=== PATIENT | male | born 1945 | race Caucasian/White ===

== ENCOUNTER → 2017-02-19 | Outpatient (CLI) | payer MEDICARE, BC ==
--- NOTE | 2017-02-19 16:35 | US ---
EXAMINATION TYPE: US carotid duplex BILAT DATE OF EXAM: 02/19/2017 COMPARISON: NONE CLINICAL HISTORY: R42 Intermittent light headedness. Light headed EXAM MEASUREMENTS: RIGHT: Peak Systolic Velocity (PSV) cm/sec ----- Right CCA: 47.7 ----- Right ICA: 75.3 ----- Right ECA: 72.4 ICA/CCA ratio: 1.6 RIGHT: End Diastole cm/sec ----- Right CCA: 11.0 ----- Right ICA: 28.0 ----- Right ECA: 11.8 LEFT: Peak Systolic Velocity (PSV) cm/sec ----- Left CCA: 73.4 ----- Left ICA: 66.9 ----- Left ECA: 80.0 ICA/CCA ratio: 0.9 LEFT: End Diastole cm/sec ----- Left CCA: 20.5 ----- Left ICA: 26.7 ----- Left ECA: 12.8 VERTEBRALS (direction of flow): Right Vertebral: Antegrade Left Vertebral: Antegrade Rhythm: Arrhythmia There is mild peripheral plaque at right carotid bulb on grayscale images. There is more mild to mini mal eccentric plaque left carotid bulb. Velocity measurements and ratios remain within normal limits bilaterally. Technologist notes 1.6 cm hypoechoic oval probable solid nodule there is some increased through transmission on image 8. IMPRESSION: Mild atherosclerotic change bilaterally without hemodynamically significant stenosis seen in either internal carotid artery. Note is made of 1.6 cm right thyroid nodule, follow up thyroid ul trasound is advised to further evaluate and characterize. Note is made of arrhythmia during real-time scanning per technologist, if this is not known finding further investigation with 24-hour Holter mo nitoring would be advised.
== END | disposition home or self-care (01) ==
LOC: RADUSWWP 15:53
PROVIDERS: ATTEND Family Medicine
DX: I70.0 Atherosclerosis of aorta (principal)
CPT/HCPCS: 93880

== ENCOUNTER → 2017-04-02 | Outpatient (CLI) | payer MEDICARE, BC ==
[2017-04-02 13:13] LABS: HCT 39.7 % (39.0-53.0); HGB 12.9 gm/dL (13.0-17.5); MCH 29.6 pg (25.0-35.0); MCHC 32.3 g/dL (31.0-37.0); MCV 91.4 fL (80.0-100.0); Mean Platelet Volume 8.2; Platelet Count 203 k/uL (150-450); RBC 4.35 m/uL (4.30-5.90); RDW 13.5 % (11.5-15.5); WBC 4.3 k/uL (3.8-10.6)
[2017-04-02 13:33] LABS: Anion Gap 10 mmol/L; Blood Urea Nitrogen 18 mg/dL (9-20); Carbon Dioxide 29 mmol/L (22-30); Chloride 97 mmol/L (98-107); Potassium 5.1 mmol/L (3.5-5.1); Sodium 136 mmol/L (137-145)
== END | disposition home or self-care (01) ==
LOC: LABPAT 12:38
PROVIDERS: ATTEND Internal Medicine Cardiovascular Disease
DX: Z01.818 Encounter for other preprocedural examination (principal); R07.9 Chest pain, unspecified
CPT/HCPCS: 36415; 80051; 82565; 84520; 85027

== ENCOUNTER 2017-04-07 10:16 | Day surgery (SDC) | payer MEDICARE, BC ==
[2017-04-02 11:56] VITALS: BMI 30.9
[~2017-04-07 10:16] MED LIST: ALPRAZolam 0.25 MG TAB PO PRN; ALPRAZolam 0.5 MG TAB PO PRN; ASPIRIN 325 MG TAB PO STA; NITROGLYCERIN SL TABS 0.4 MG TAB SUBLINGUAL PRN; SODIUM CHLORIDE 0.9% 1,000 ML in EMPTY BAG 1 BAG IV ONE
[2017-04-07] MEDS ORDERED: fentaNYL (PF) 50 MCG/ML 2 ML AMP IVP ONE (12:19)
[2017-04-07] MEDS ORDERED: MIDAZOLAM 2 MG/2 ML VIAL IVP ONE (12:22)
[2017-04-07] MEDS ORDERED: LIDOCAINE 2% INJ 20 MG/ML SQ ONE (12:22)
[2017-04-07 12:53] LABS: O2 Sat Blood Gas 97.7 %
[2017-04-07] MEDS ORDERED: IOHEXOL 350 MG/ML 125ML BOTTLE INJ ONE (13:09)
[2017-04-07] MEDS ORDERED: RX INFO: IV CONTRAST WAS GIVEN 1 EACH MISC MISCELLANE PRN (13:13)
[2017-04-07] MEDS ORDERED: HYDROcodone/APAP 5-325MG 1 EACH TAB PO PRN (13:13)
[2017-04-07] MEDS ORDERED: SODIUM CHLORIDE 0.9% 1,000 ML IV SCH (13:15)
[2017-04-07 13:32] LABS: O2 Sat Blood Gas 74.9 %
[2017-04-07 13:33] LABS: O2 Sat Blood Gas 86.1 %
[2017-04-07 20:12] VITALS: BP 137/78; RESP 18; TEMP 98
[2017-04-07 20:13] VITALS: PULSE 77
--- NOTE | 2017-04-09 13:36 | P.PCN ---
Date of Procedure: 04/07/17 Preoperative Diagnosis: Chest pain, positive stress test and mitral regurgitation Postoperative Diagnosis: Diffuse coronary artery disease, mild mitral regurgitation Description of Procedure: HISTORY: This is a 72-year-old gentleman with history of multiple risk factors was been experiencing chest pain and shortness of breath. A stress test showed evidence of inferolateral ischemia. There is also moderate mitral regurgitation on the echocardiogram. Patient is advised to have cardiac catheterization for definitive diagnosis. CONSENT:I have discussed the risks, benefits and alternative therapies for the above-mentioned procedure and for both sedation/analgesia as well as necessary blood product administration, if indicated, as they pertain to this patient. The patient has indicated understanding and acceptance of the risks and procedures discussed. PROCEDURE: Patient was brought to the lab in a fasting state. Patient was given some IV sedation. RIGHT HEART CATHETERIZATION: The right groin is infiltrated with lidocaine and right femoral vein was entered using Seldinger technique. Right heart catheterization was performed using a Bardolph-Kash catheter. Patient tolerated the procedure well. LEFT HEART CATHETERIZATION: The right femoral artery was entered using Seldinger technique. A 6-Spanish catheter was left in place and selective coronary arteriography and left ventriculography was performed. Patient tolerated the procedure well. Femoral angiogram was performed and manual compression was applied for hemostasis. No immediate complications were noted and patient was transferred to [facility] in a stable condition Conscious Sedation: Versed 1 mg Fentanyl 50 g Duration 87 minutes HEMODYNAMICS: RIGHT HEART CATHETERIZATION: Right atrial pressure was 8-10, right ventricular pressure was 35/10, pulmonary wedge pressure was 5-10. Cardiac output by thermodilution method is 5-6 L and LEFT HEART CATHETERIZATION: The aortic pressure is 130/ 70. Left ankle end-diastolic pressure is 5-10. There was no gradient across the aortic valve SELECTIVE CORONARY ARTERIOGRAPHY: LEFT MAIN: Short and patent THE LEFT ANTERIOR DESCENDING CORONARY ARTERY:. This is a moderate caliber vessel giving rise to 2 good-sized diagonal branchs. There is no Sigmund lesion in the LAD THE LEFT CIRCUMFLEX AND IS CORONARY ARTERY:. This is a dominant vessel giving rise to good-sized OM branch and PLV and PDA branches. The OM branch has about 60-70% lesion. Beyond the lesion with a small in caliber. The PDA branch has about 70% lesion but also beyond the lesion is small in caliber THE RIGHT CORONARY ARTERY:, Nondominant vessel. LEFT VENTRICULOGRAPHY: This revealed mildly enlarged cardiac silhouette with preserved LV function. There is 1+ mitral regurgitation LEFT VENTRICULOGRAPHY:, Showed normal-sized cardiac silhouette with preserved LV function FINAL IMPRESSION: Significant lesion involving the OM branch and also PDA of the circumflex and there is a diffuse disease with calcification of the rest of the results. Preserved LV function. Mild mitral regurgitation PLAN: The films were reviewed with Dr. ELICEO Be. He recommended maximum medical therapy. If patient has any refractory angina, Ecotrin is intervention will be contemplated. Prognosis is guarded PROGNOSIS:. Guarded
== END 2017-04-07 21:30 | disposition home or self-care (01) ==
LOC: CATHCVL 10:16 → 3OBS 12:55 → CATHCVL 21:30
PROVIDERS: ATTEND Internal Medicine Cardiovascular Disease
DX: I25.118 Atherosclerotic heart disease of native coronary artery with other forms of angina pectoris (principal); I34.0 Nonrheumatic mitral (valve) insufficiency; R94.39 Abnormal result of other cardiovascular function study; I10 Essential (primary) hypertension; I73.9 Peripheral vascular disease, unspecified; N40.1 Benign prostatic hyperplasia with lower urinary tract symptoms; Z79.899 Other long term (current) drug therapy; Z87.891 Personal history of nicotine dependence
CPT/HCPCS: 93460; 85018; 82810; C1894 ×2; C1769; J2001; J2250; J3010; Q9967

== ENCOUNTER → 2017-06-03 | Outpatient (CLI) | payer MEDICARE, BC ==
--- NOTE | 2017-06-03 11:33 | US ---
EXAMINATION TYPE: US thyroid st tissue head/neck DATE OF EXAM: 06/03/2017 COMPARISON: NONE CLINICAL HISTORY: E04.1 Thyroid Nodule. Fatigue GLAND SIZE: Right Lobe: 4.4 x 1.8 x 2.0 cm Overall Parenchyma: homogenous Left Lobe: 4.3 x 1.4 x 1.4 cm Overall Parenchyma: homogeneous Isthmus Thickness: 0.4 cm NODULES RIGHT: # of nodules measured on right: 3 1. 1.8 X 1.1 x 1.6 cm hypoechoic mixed nodule at the upper pole with well-defined margins; . This nodule is wider than tall and shows intranodular vascularity. Prior size: No previous 2. 0.8 X 0.7 x 0.7 cm echogenic calcified solid nodule at the lower pole with well-defined margins; peripheral calcification. This nodule is wider than tall and shows no intranodular vascularity. Prior size: No previous 3. 0.3 X 0.4 x 0.7 cm hypoechoic cystic nodule at the upper pole with well-defined margins; . This nodule is wider than tall and shows no intranodular vascularity. Prior size: No previous LEFT: # of nodules measured on left: 1 1. 0.7 X 0.6 x 0.8 cm hypoechoic solid nodule at the upper pole with poorly defined margins; . Thi s nodule is wider than tall and shows intranodular vascularity. Prior size: No previous ISTHMUS: # of nodules measured in the isthmus: 0 Bilateral neck scanned, no evidence of lymphadenopathy. Bilateral thyroid nodules. IMPRESSION: 1. Multiple nonspecific thyroid nodules. Recommend biopsy of nodule labeled #1 right upper pole.
== END | disposition home or self-care (01) ==
LOC: RADUSWWP 10:45
PROVIDERS: ATTEND Family Medicine
DX: E04.1 Nontoxic single thyroid nodule (principal)
CPT/HCPCS: 76536

== ENCOUNTER 2017-08-19 09:08 | Emergency (ER) | payer MEDICARE, BC ==
[2017-08-19 09:14] VITALS: TEMP 98.2
[2017-08-19] MEDS ORDERED: IBUPROFEN 600 MG TAB PO STA (09:25)
--- NOTE | 2017-08-19 09:29 | ED ---
Lower Extremity Injury HPI - General Chief Complaint: Extremity Injury, Lower Stated Complaint: Right Knee Pain Time Seen by Provider: 08/19/17 09:16 Source: patient, RN notes reviewed Mode of arrival: wheelchair Limitations: no limitations - History of Present Illness Initial Comments: 72-year-old male past medical history of right knee total arthroplasty and previous hardware infection in 2008 who presents today for chief complaint of right knee pain 5 hours. Patient states that around 4 AM he was getting ready for the day putting on his sock when he crossed over his right ankle to his left knee he felt a pop in the right knee denies any posterior dislocation. Pt was able to bear weight on the right leg, however this did induce pain. Patient thought the pain may go away however when it continued and he noticed swelling to the lateral side of his right knee and pain to palpation of the lateral aspect of the right knee he presented emergency department. Pt did not ice or take medication to alleviate swelling or pain prior to arrival. Patient denies numbness, tingling, paresthesias, loss of sensation or coolness to the extremity, erythema of the overlying joint. Patient denies any recent fever, chills, shortness of breath, chest pain, back pain, abdominal pain, nausea or vomiting, numbness or tingling, dysuria or hematuria, constipation or diarrhea, headaches or visual changes, or any other complaints. - Related Data Home Medications Medication Instructions Recorded Confirmed Finasteride [Proscar] 5 mg PO DAILY 04/02/17 08/19/17 Tamsulosin [Flomax] 0.4 mg PO DAILY 04/02/17 08/19/17 Lisinopril 40 mg PO DAILY 08/19/17 08/19/17 Previous Rx's Medication Instructions Recorded Metoprolol Tartrate 25 mg PO BID #60 tab 04/07/17 Allergies Allergy/AdvReac Type Severity Reaction Status Date / Time vancomycin Allergy Rash/Hives Verified 08/19/17 09:54 Review of Systems ROS Statement: Those systems with pertinent positive or pertinent negative responses have been documented in the HPI. ROS Other: All systems not noted in ROS Statement are negative. Constitutional: Denies: fever, chills Eyes: Denies: eye pain ENT: Denies: ear pain Respiratory: Denies: cough, dyspnea Cardiovascular: Denies: chest pain, palpitations, edema Endocrine: Denies: fatigue Gastrointestinal: Denies: abdominal pain, nausea, vomiting, diarrhea, constipation, hematemesis Genitourinary: Denies: urgency, dysuria, frequency, hematuria Musculoskeletal: Reports: joint swelling, arthralgia. 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, IBS, "prediabetic -insulin resistant", History of Any Multi-Drug Resistant Organisms: None Reported Past Surgical History: Back Surgery, Cholecystectomy, Heart Catheterization, Joint Replacement, Tonsillectomy Additional Past Surgical History / Comment(s): laminectomy x 2, rt knee replacement, corey cataracts/lens replacement Past Anesthesia/Blood Transfusion Reactions: No Reported Reaction Past Psychological History: Bipolar Smoking Status: Former smoker Past Alcohol Use History: None Reported Past Drug Use History: None Reported - Past Family History Father Family Medical History: Cancer General Exam - General Exam Comments Initial Comments: General: The patient is awake and alert, in no distress, and does not appear acutely ill. Eye: Pupils are equal, round and reactive to light, extra-ocular movements are intact. No nystagmus. There is normal conjunctiva bilaterally. No signs of icterus. Ears, nose, mouth and throat: There are moist mucous membranes and no oral lesions. Neck: The neck is supple, there is no tenderness or JVD. Cardiovascular: There is a regular rate and rhythm. No murmur, rub or gallop is appreciated. Respiratory: Lungs are clear to auscultation, respirations are non-labored, breath sounds are equal. No wheezes, stridor, rales, or rhonchi. Musculoskeletal: Upon inspection of the right knee there is swelling to the lateral and medial aspect of the knee joint, tenderness to palpation of the lateral aspect and anterior knee. Increased pain and some laxity with varus stress and minimal discomfort with valgus stress. Full ROM of hip and knee joint b/l. Strength of right knee 5/5. Normal inspection, no tenderness and full ROM of the left knee. Strength 5/5. Sensation intact of LE b/l. DP pulses equal bilaterally 2+. LE equally warm to touch b/l. Neurological: A&O x 3. CN II-XII intact, There are no obvious motor or sensory deficits. Coordination appears grossly intact. Speech is normal. Skin: Skin is warm and dry and no rashes or lesions are noted. Psychiatric: Cooperative, appropriate mood & affect, normal judgment. Limitations: no limitations Course Vital Signs 08/19/17 08/19/17 09:12 11:06 Temperature 98.2 F Pulse Rate 64 59 L Respiratory 20 18 Rate Blood Pressure 147/79 142/71 O2 Sat by Pulse 98 95 Oximetry Medical Decision Making - Medical Decision Making 72-year-old male past medical history of right knee total arthroplasty and previous hardware infection in 2008 who presents today for chief complaint of right knee pain 5 hours. Patient states that around 4 AM he was getting ready for the day putting on his sock when he crossed over his right ankle to his left knee he felt a pop in the right knee denies any posterior dislocation. He is not able to bear full weight on the right leg secondary to pain. Patient thought the pain may go away however when it continued and he noticed swelling to the right lateral side of his knee and pain to palpation of the lateral aspect of the right knee he presented emergency department. Patient denies numbness, tingling, paresthesias, loss of sensation or coolness to the extremity , erythema of the overlying joint. Physical examination- inspection of the right knee there is swelling to the lateral and medial aspect of the knee joint , tenderness to palpation of the lateral aspect and anterior knee. Increased pain and some laxity with varus stress and minimal discomfort with valgus stress. Strength of right knee 5/5. +2 DP pulses b/l. Pt given ibuprofen for pain mgmt. XR revealed-no acute dislocation, or fracture however there is a mild knee effusion. Results were discussed with the patient as well as Dr. Allison. At this time we feel it could be a possible ligamentous injury, plan is for orthopedic f/u for further evaluation and treatment, OTC ibuprofen or naproxen for pain mgmt, use of knee brace in extension and ice/elevation for swelling. Pt received copy of XR and agreed with plan. Was instructed to return to emergency department for any new or worsening signs or symptoms. DC in stable condition, VS WNL. Disposition Clinical Impression: Pain of right knee after injury Disposition: HOME SELF-CARE Condition: Good Instructions: Knee Sprain (ED), Knee Pain (ED) Additional Instructions: Please use over the counter ibuprofen or naproxen as discussed. Please follow- up with orthopedic associates in the next 2 days. Please return to emergency room if the symptoms increase or worsen or for any other concerns. Is patient prescribed a controlled substance at d/c from ED?: No Referrals: Brisa Brush MD [Primary Care Provider] - 1-2 days Yared Farr DO [Doctor of Osteopathic Medicine] - 1-2 days Time of Disposition: 10:50
--- NOTE | 2017-08-19 10:20 | XR ---
EXAMINATION TYPE: XR knee complete RT DATE OF EXAM: 08/19/2017 CLINICAL HISTORY: Right knee pain. Unable to bear weight. TECHNIQUE: Three views of the right knee are obtained. COMPARISON: None. FINDINGS: There is no acute fracture/dislocation evident in right knee. Metallic hardware from total right knee arthroplasty is present. No suspicious surrounding lucency is seen to suggest loosening o r infection. [place] patella is small in size with marked narrowing of the patellofemoral joint space. There is suprapatellar joint effusion on lateral view. Punctate densities at this level as well as a nterior and posterior to the tibial femoral articulation is present. Subtle lucency anterior lateral tibial plateau is present. Subtle lucency posterior distal femur as seen on lateral view. Both measur e under 2 mm in thickness. IMPRESSION: As above. Presence of joint effusion with punctate densities and lucent areas raises conc gabriel for particle disease given patient history. There may be wearing out of the patellofemoral compon ent of prosthesis given marked small size of the [place] patella with marked joint space loss. Correla tion with old outside x-rays would be beneficial to assess interval change.
[2017-08-19 11:08] VITALS: BP 142/71; PULSE 59; RESP 18
== END 2017-08-19 11:07 | disposition home or self-care (01) ==
LOC: EC 09:08
DX: S89.91XA Unspecified injury of right lower leg, initial encounter (principal); N42.9 Disorder of prostate, unspecified; I10 Essential (primary) hypertension; Z86.73 Personal history of transient ischemic attack (TIA), and cerebral infarction without residual deficits; Z96.651 Presence of right artificial knee joint; Z86.718 Personal history of other venous thrombosis and embolism; Z87.891 Personal history of nicotine dependence; Z79.899 Other long term (current) drug therapy; Z88.1 Allergy status to other antibiotic agents; X50.1XXA Overexertion from prolonged static or awkward postures, initial encounter; Y92.009 Unspecified place in unspecified non-institutional (private) residence as the place of occurrence of the external cause; Y93.89 Activity, other specified
CPT/HCPCS: 73562; 99283; L1830 ×2

== ENCOUNTER → 2017-08-21 | Outpatient (CLI) | payer MEDICARE, BC ==
[2017-08-21 12:58] LABS: HGB 12.4 gm/dL (13.0-17.5); MCH 30.1 pg (25.0-35.0); MCHC 34.3 g/dL (31.0-37.0); MCV 87.6 fL (80.0-100.0); Platelet Count 211 k/uL (150-450); RBC 4.11 m/uL (4.30-5.90); RDW 13.2 % (11.5-15.5); WBC 6.3 k/uL (3.8-10.6)
[2017-08-21 13:12] LABS: ALT 36 U/L (21-72); AST 27 U/L (17-59); Alkaline Phosphatase 90 U/L (38-126); Anion Gap 7 mmol/L; Blood Urea Nitrogen 18 mg/dL (9-20); Calcium 9.3 mg/dL (8.4-10.2); Carbon Dioxide 27 mmol/L (22-30); Chloride 95 mmol/L (98-107); Glucose 106 mg/dL (74-99); Partial Thromboplastin Time 24.6 sec (22.0-30.0); Potassium 4.9 mmol/L (3.5-5.1); Prothrombin Time 9.9 sec (9.0-12.0); Sodium 129 mmol/L (137-145); Total Bilirubin 0.5 mg/dL (0.2-1.3); Total Protein 6.5 g/dL (6.3-8.2)
[2017-08-21 13:18] LABS: Appearance,Urine Clear (Clear); Bilirubin,Urine Negative (Negative); Blood,Urine Negative (Negative); Color,Urine Yellow; Glucose,Urine (UA) Negative (Negative); Ketones,Urine Negative (Negative); Leukocyte Esterase,Urine Negative (Negative); Nitrite,Urine Negative (Negative); PH, Urine 7.5 (5.0-8.0); Protein,Urine Negative (Negative); Specific Gravity,Urine 1.015 (1.001-1.035); Urobilinogen,Urine <2.0 mg/dL (<2.0)
== END | disposition home or self-care (01) ==
LOC: LABPAT 12:06
PROVIDERS: ATTEND Orthopaedic Surgery
DX: Z01.812 Encounter for preprocedural laboratory examination (principal); Z79.01 Long term (current) use of anticoagulants
CPT/HCPCS: 36415; 80053; 81003; 85027; 85610; 85730; 87070

== ENCOUNTER 2017-09-02 10:50 | Inpatient (IN) | payer MEDICARE, BC ==
[2017-08-28 10:46] VITALS: BMI 31.1
[~2017-09-02 10:50] MED LIST changes: +ACETAMINOPHEN TAB 500 MG TAB PO ONE; -ALPRAZolam 0.25 MG TAB PO PRN; -ALPRAZolam 0.5 MG TAB PO PRN; -ASPIRIN 325 MG TAB PO STA; +DEXAMETHASONE SOD PHOSPHATE 10 MG/ML 1 ML VIAL IV ONE; +HYDROmorphone 0.5 MG/0.5 ML SYRINGE IVP PRN; +LIDOCAINE 1% 20 ML VIAL (10MG/ML) FOR IV START INTRADERMA PRN; +MELOXICAM 7.5 MG TAB PO ONE; +MIDAZOLAM 2 MG/2 ML VIAL IV PRN; -NITROGLYCERIN SL TABS 0.4 MG TAB SUBLINGUAL PRN; +ONDANSETRON 4 MG/2 ML VIAL IVP ONE; +SCOPOLAMINE 1.5MG/72HR PATCH TRANSDERM ONE; -SODIUM CHLORIDE 0.9% 1,000 ML in EMPTY BAG 1 BAG IV ONE; +TRANEXAMIC ACID 1,000 MG in SODIUM CHLORIDE 0.9% 50 ML IVPB ONE
[2017-09-02] MEDS ORDERED: LACTATED RINGERS 1,000 ML IV ONE ×2 (12:13→16:30)
[2017-09-02 12:34] LABS: Glucose,Whole Blood 108 mg/dL (75-99)
[2017-09-02] MEDS ORDERED: MIDAZOLAM 2 MG/2 ML VIAL IVP ONE (13:54)
[2017-09-02] MEDS ORDERED: fentaNYL (PF) 50 MCG/ML 2 ML AMP ONE (14:22)
[2017-09-02] MEDS ORDERED: TRANEXAMIC ACID 1,000 MG/10 ML VIAL ONE (14:22)
[2017-09-02] MEDS ORDERED: MIDAZOLAM 2 MG/2 ML VIAL ONE (14:22)
[2017-09-02] MEDS ORDERED: SODIUM CHLORIDE 0.9% 100 ML BAG ONE (14:22)
[2017-09-02] MEDS ORDERED: diphenhydrAMINE 50 MG/ML 1 ML VIAL ONE (14:22)
[2017-09-02] MEDS ORDERED: ROPIVACAINE 1,100 MG, SODIUM CHLORIDE 0.9% 330 ML MISCELLANE PRN ×2 (14:35)
--- NOTE | 2017-09-02 14:36 | P.ONQ ---
Anesthesiology Proc Note - PNB - Peripheral Nerve Block Performed Right Adductor Canal Infusion Time Out Performed: Yes (0258) Procedure Start Time: 13:41 Procedure Stop Time: 13:52 Indication: Acute Post-Operative Pain, Dx/Pain Location (R), Requested by physician Sedation Type: Sedate with meaningful contact maintained Preparation: Sterile Prep Position: Supine Catheter: Indwelling Needle Types: On-Q Needle Size: 100mm (4") Needle Gauge: 20, 21 Technique: Ultrasound Injectate: 0.5% Ropivacaine (see comment for volume) (20ml) Blood Aspirated: No Pain Paresthesia on Injection Noted: No Resistance on Injection: Normal Events: Uneventful and Well Tolerated
[2017-09-02] MEDS: ROPIVACAINE 246.25 MG, EPINEPHrine 0.5 MG, KETOROLAC 30 MG, cloNIDine HCL/PF 80 MCG, WA... MISCELLANE ONE ×10 (14:53→16:08)
[2017-09-02] MEDS ORDERED: DAPTOmycin 500 MG in SODIUM CHLORIDE 0.9% 50 ML IVPB ONE (15:00)
[2017-09-02] MEDS ORDERED: ceFAZolin 3,000 MG in SODIUM CHLORIDE 0.9% IRRIGATIO 3,000 ML IRRIGATION ONE (15:02)
--- NOTE | 2017-09-02 16:37 | P.OP ---
Date of Procedure: 09/02/17 Preoperative Diagnosis: Instability right total knee arthroplasty Postoperative Diagnosis: Instability right total knee arthroplasty and fractured tibial post Procedure(s) Performed: Revision right total knee arthroplasty Implants: [employer]eta [employer] Legion Oxinium constrained femoral component size 5, right [employer] Legion press-fit stem, 18 mm x 1 60 mm Ar[employer] Legion posterior augment, 5 mm Argueta [employer] Nephew legion revision tibial baseplate size 5 right [employer] Legion press-fit stem, 15 mm x 1 60 mm Ar[employer]eta [employer] Nephew size 21 mm Rossy II constrained articular insert, size 5-6 All components were cemented using Kinza bone cement x2 The articulation is Oxinium on polyethylene. Anesthesia: spinal Surgeon: Yared Farr Resolution Specialist #1: Kaylah King Estimated Blood Loss (ml): 50 Pathology: other (Cultures 2) Condition: stable Disposition: PACU Indications for Procedure: This is a 72-year-old gentleman has had a right total knee arthroplasty performed at another institution. He presents with instability of his right total knee arthroplasty. The patient can flex his knee and sublux his tibial post. He then can reduce it back. This instability is troubling to him, and he wishes to have it resolved. I discussed the treatment options and recommended a complete revision of his right total knee arthroplasty and informed consent was obtained. Operative Findings: Operative findings are consistent with instability of his right total knee arthroplasty. Also, findings found a fractured tibial post contributing to the patient's instability of his total knee. Description of Procedure: Patient was seen in the preoperative area consent was reviewed and operative site was marked with a skin marker. An adductor canal pain catheter was placed by anesthesia in the preoperative area. Patient was then brought to the operating room and given preoperative antibiotics intravenously. A spinal anesthetic was administered by the anesthesia department. A tourniquet was placed on the upper thigh and the lower extremity was prepped and draped in usual sterile fashion. A gram of transexamic acid was given. A universal timeout was then performed which confirmed the patient's name, surgical site, ALLERGIES, and consent. The lower extremity was then exsanguinated and tourniquet was inflated to 250 mmHg. A standard and anterior midline approach to the knee was performed. The skin and subcutaneous tissue was dissected down to the patellar tendon, with the prior scar being excised.. A medial parapatellar arthrotomy was then performed. A moderate amount of bloody fluid was encountered, and this was cultured 2. There is no evidence of gross purulence. The knee was then extended, the patellar was found to have been excised at a prior surgery, and the knee was again flexed. On gross visual inspection, it appeared that the tibial post had been fractured at an earlier time. The other piece of the tibial post was located floating about the knee. The remaining post was able to be subluxed in and out of the femoral box without difficulty. There is also noted there is significant medial lateral instability on exam as well. The tibial insert was then removed with an osteotome without difficulty. The femoral component wasn't suspected and found to have no gross loosening. The tibial component was then inspected and found to have some mild loosening as well as significant overhang over the medial aspect. Next using a small oscillating saw, the cement implant interface was disrupted in both the femoral and tibial components. Both the components were then removed with a bone punch with minimal bone loss. Attention was first directed to the femur. Sequential hand reaming of the femur was performed to size 18 mm to a depth of 160 mm. Sizing guide was used and found to be this size 5 femur. The distal cutting guide was then placed over the femoral reamer and the distal femoral cut was freshened with minimal bone removed. Next the 4-in-1 cutting block was then placed over the reamer and pinned in place after set for the appropriate rotation. Anterior and posterior condyles were cut as well as the chamfer cuts. The cutting block in reamer was then removed and the trial femur was then placed. This found to have bone loss at the posterior condyle of the lateral distal femur. A 5 mm wedge was then placed posteriorly and found to have an excellent fit. Next the reamer were guide was placed to ream out the femoral box, and this was then done. The remaining bone was then removed from the box area. The femoral trial was then removed. Attention was then directed to the tibia. Proximal tibia was exposed, and a hand tennis ball coverer is used to aggressively reamed the tibia to a size 15 x 1 60 mm. The intramedullary tibial cutting guide was then placed over the reamer the proximal tibia then was cut. Tibia was sized and found to be a size 5. The proximal tibia was then reamed to accommodate the tibial stem. Next trials were then placed in progressive liners were then used to final 21 mm constrained liner. The knee was able to fully extend and flex to 120 and was stable throughout all range of motion. Next the trials were then removed. The cut surfaces of bone were then irrigated with pulsatile lavage. The posterior structures were injected with the ropivacaine solution. The components were then opened, the cement was mixed, and the components were then cemented in place. The cement was allowed to harden with the knee in full extension. While the cement was hardening, the remaining soft tissues were then injected with a ropivacaine solution, which consisted of 246.25 mg of ropivacaine, 0.5 mg of epinephrine, 30 mg of Toradol, 80 g of clonidine, and 48.45 mL of sterile water, for a total of 100 mL of fluid injected. After the cemented hardened. The tourniquet was released, and hemostasis was obtained. A second gram of transexamic acid was given. The knee was again irrigated. The knee was again taken through range of motion and found to be stable throughout all range of motion of 0-130, and the patella tracked normally. The fascia was then closed with #2 strata fix suture. The subcutaneous tissue was closed with 3-0 Vicryl and 3-0 strata fix. Dermabond glue was used for the skin and placed with the knee in flexion. The patient was placed in a sterile silver dressing. Patient was then transferred to recovery room in stable condition. The staff assistant ILIR Quinteros was required due the complexity surgery and the need for a skilled marketing support assistant. She assisted in positioning, draping, retraction, and closure of the wound.
[2017-09-02] MEDS ORDERED: HYDROcodone/APAP 5-325MG 1 EACH TAB PO PRN (16:52)
[2017-09-02] MEDS ORDERED: NALOXONE 0.4 MG/ML 1 ML VIAL IV PRN (16:52)
[2017-09-02] MEDS ORDERED: ONDANSETRON 4 MG/2 ML VIAL IVP PRN (16:52)
[2017-09-02] MEDS ORDERED: MAGNESIUM HYDROXIDE 2,400 MG/10 ML CUP PO PRN (16:52)
[2017-09-02] MEDS ORDERED: NA PHOS,M-B/NA PHOS,DI-BA 133 ML ENEMA RECTAL PRN (16:52)
[2017-09-02] MEDS ORDERED: DIAZEPAM 5 MG TAB PO PRN ×2 (16:52)
[2017-09-02] MEDS ORDERED: BISACODYL 10 MG SUPP RECTAL PRN (16:52)
[2017-09-02] MEDS ORDERED: HYDROmorphone 1 MG/ML 1 ML SYRINGE IVP PRN ×4 (16:52)
[2017-09-02] MEDS ORDERED: hydrOXYzine PAMOATE 25 MG CAP PO PRN (16:52)
--- NOTE | 2017-09-02 17:33 | XR ---
EXAMINATION TYPE: XR knee limited RT DATE OF EXAM: 09/02/2017 COMPARISON: 08/19/2017 HISTORY: Postop TECHNIQUE: 2 views FINDINGS: There is a revision of the right knee prosthesis. Components appear in anatomic position. IMPRESSION: No complicating process seen.
[2017-09-02] MEDS: LACTATED RINGERS 1,000 ML IV SCH (18:05)
[2017-09-02] MEDS: HYDROcodone/APAP 5-325MG 1 EACH TAB PO PRN (19:33)
[2017-09-02] MEDS: METOPROLOL TARTRATE 25 MG TAB PO SCH (20:52)
[2017-09-02] MEDS: SENNOSIDES-DOCUSATE SODIUM 1 EACH TAB PO SCH ×2 (20:52→20:53)
[2017-09-02] MEDS ORDERED: ARIPiprazole 10 MG TAB PO SCH (21:00)
[2017-09-03] MEDS ORDERED: ceFAZolin IN SWFI 2 GM/20 ML SYRINGE IVP SCH
[2017-09-03] MEDS: HYDROcodone/APAP 5-325MG 1 EACH TAB PO PRN ×3 (01:15→13:59)
[2017-09-03 02:20] VITALS: RESP 16
--- NOTE | 2017-09-03 05:39 | P.PN ---
Progress Note - Text Progress Note Date: 09/03/17 The patient is doing well status post total knee replacement. Pain is well controlled by a combination of local anesthetic infusion through the adductor canal catheter and oral analgesics. There are no signs of infection around the catheter skin entry site. The local anesthetic infusion will be continued as per protocol.
[2017-09-03] MEDS: METOPROLOL TARTRATE 25 MG TAB PO SCH (07:45)
[2017-09-03 07:47] LABS: Basophils % (A) 0 %; Eosinophils % (A) 0 %; HCT 32.4 % (39.0-53.0); HGB 10.5 gm/dL (13.0-17.5); Lymphocytes # (A) 0.7 k/uL (1.0-4.8); Lymphocytes % (A) 6 %; MCH 29.2 pg (25.0-35.0); MCHC 32.5 g/dL (31.0-37.0); MCV 89.8 fL (80.0-100.0); Mean Platelet Volume 7.8; Monocytes # (A) 0.5 k/uL (0-1.0); Monocytes % (A) 4 %; Neutrophils # (A) 10.7 k/uL (1.3-7.7); Neutrophils % (A) 89 %; Platelet Count 212 k/uL (150-450); RBC 3.61 m/uL (4.30-5.90); RDW 13.8 % (11.5-15.5); WBC 12.1 k/uL (3.8-10.6)
[2017-09-03 07:53] LABS: Anion Gap 7 mmol/L; Blood Urea Nitrogen 26 mg/dL (9-20); Calcium 8.8 mg/dL (8.4-10.2); Carbon Dioxide 24 mmol/L (22-30); Chloride 96 mmol/L (98-107); Glucose 154 mg/dL (74-99); Potassium 4.9 mmol/L (3.5-5.1); Sodium 127 mmol/L (137-145)
[2017-09-03 08:20] VITALS: BP 129/73; PULSE 63; TEMP 96.9
--- NOTE | 2017-09-03 08:43 | P.DS ---
Providers Date of admission: 09/02/17 11:50 Expected date of discharge: 09/03/17 Attending physician: Yared Farr Consults: 09/02/17 16:52 Consult Physician Routine Consulting Provider: Brisa Brush Reason/Comments: medical management and anticoagulation Do you want consulting provider notified?: Yes Primary care physician: Brisa Brush - Discharge Diagnosis(es) (1) Instability of internal right knee prosthesis Current Visit: Yes Status: Acute (2) Status post revision of total replacement of right knee Current Visit: Yes Status: Acute Hospital Course: This is a 72-year-old male with known history of degenerative arthritis of the right knee. The patient presents for evaluation. After discussion and consideration patient elects to proceed with total knee arthroplasty. The patient is seen preoperatively by Dr. Farr and medically cleared for surgery by their primary care physician. Patient is admitted to [facility] on 09/02/2017 for total knee arthroplasty. The procedures performed without complication or sequelae. The patient is doing well postoperatively. Labs and vital signs are stable on day of discharge. On day of discharge patient's knee incision is healing well. There is minimal erythema. There is no drainage noted at this time. There is minimal soft tissue swelling to the knee. Patient has full foot and ankle motion without difficulty or pain. Neurovascular status to the right lower extremity is intact. Patient is discharged home in good condition. Please see med rec for accurate list of home medications. Plan - Discharge Summary Discharge Rx Participant: Yes New Discharge Prescriptions: New HYDROcodone/APAP 5-325MG [[place] 5-325] 1 - 2 tab PO Q4-6H PRN #84 tab PRN Reason: Pain Rivaroxaban [Xarelto] 10 mg PO DAILY #30 tab Sennosides [Senokot] 1 tab PO BID #60 tablet No Action Metoprolol Tartrate 25 mg PO BID #60 tab Lisinopril 40 mg PO DAILY Naproxen Sodium [Aleve] 220 mg PO BID PRN PRN Reason: Pain Chlorthalidone 25 mg PO DAILY ARIPiprazole [Abilify] 10 mg PO HS Amoxic-Pot Clav 875-125Mg [Augmentin 875-125] 1 tab PO Q12HR Discharge Medication List Metoprolol Tartrate 25 mg PO BID #60 tab 04/07/17 [Rx] Lisinopril 40 mg PO DAILY 08/19/17 [History] ARIPiprazole [Abilify] 10 mg PO HS 08/28/17 [History] Chlorthalidone 25 mg PO DAILY 08/28/17 [History] Naproxen Sodium [Aleve] 220 mg PO BID PRN 08/28/17 [History] Amoxic-Pot Clav 875-125Mg [Augmentin 875-125] 1 tab PO Q12HR 09/02/17 [History] HYDROcodone/APAP 5-325MG [[place] 5-325] 1 - 2 tab PO Q4-6H PRN #84 tab 09/03/17 [ Rx] Rivaroxaban [Xarelto] 10 mg PO DAILY #30 tab 09/03/17 [Rx] Sennosides [Senokot] 1 tab PO BID #60 tablet 09/03/17 [Rx] Follow up Appointment(s)/Referral(s): Yared Farr DO [Doctor of Osteopathic Medicine] - 2 Weeks Ambulatory/Diagnostic Orders: Continuous Passive Motion (CPM) Machine [DME.AMB1] Time Frame: 3 Weeks, Location : None Selected Activity/Diet/Wound Care/Special Instructions: Weightbearing as tolerated with a walker CPM 5-6h daily Leave dressing intact. May be removed by home care nurse in 10 days. May shower with dressing on. Please call [facility] with any questions or concerns, Discharge Disposition: HOME WITH HOME HEALTH SERVICES
[2017-09-03] MEDS ORDERED: LISINOPRIL 20 MG TAB PO SCH (09:00)
[2017-09-03] MEDS ORDERED: AMOXIC-POT CLAV 875-125MG 1 EACH TAB PO SCH (09:00)
[2017-09-03] MEDS ORDERED: RIVAROXABAN 10 MG TAB PO SCH (09:00)
[2017-09-03] MEDS ORDERED: CHLORTHALIDONE 25 MG TAB PO SCH (09:00)
[2017-09-03] MEDS: SODIUM CHLORIDE 0.9% 1,000 ML IV SCH (10:29)
[2017-09-03] MEDS: LACTATED RINGERS 1,000 ML IV SCH (10:31)
--- NOTE | 2017-09-03 16:29 | CONS ---
CONSULTATION REASON FOR CONSULTATION: Advice regarding hypertension and other medical issues requested by Dr. Farr. HISTORY OF PRESENT ILLNESS: This 72-year-old gentleman with a past history of asthma, CVA, DVT, DJD, hypertension, rheumatoid arthritis being followed by Dr. Brisa Brush in the outpatient setting underwent revision of the right total knee arthroplasty by Dr. Farr. There is no history of chest pain. No palpitations, headache, loss of consciousness, nausea , diarrhea, fever, rigors or chills. PAST MEDICAL HISTORY: History of asthma, CVA, DVT, hypertension, DJD, rheumatoid arthritis. MEDICATIONS: Prior to admission include home medications are: 1. Augmentin 1 p.o. b.i.d. for a cough prescribed by Dr. Brisa Brush. 2. Aleve 220 mg p.o. b.i.d. p.r.n. 3. Chlorthalidone 25 mg p.o. daily. 4. Metoprolol 25 mg p.o. b.i.d. 5. Lisinopril 40 mg p.o. daily. 6. Abilify 10 mg q.h.s. 7. Senokot 1 tablet b.i.d. 8. Xarelto 10 mg. 9. Hydrocodone 1-2 tablets q.4h p.r.n. ALLERGIES: VANCOMYCIN. FAMILY HISTORY: History of cancer in the family. SOCIAL HISTORY: Previous history of smoking. No history of current smoking or alcohol intake. REVIEW OF SYSTEMS: ENT: No diminished hearing or vision. CARDIOVASCULAR: No angina or palpitations. RESPIRATORY: As mentioned earlier. GI: No nausea : No dysuria. NERVOUS SYSTEM: No numbness or weakness. ALLERGY/IMMUNOLOGY: As mentioned earlier. MUSCULOSKELETAL: As mentioned earlier. HEMATOLOGY/ONCOLOGY: No history of anemia. ENDOCRINE: No history diabetes or hypothyroidism. CONSTITUTIONAL: As mentioned earlier. DERMATOLOGY: Negative. RHEUMATOLOGY: Negative. PSYCHIATRY: As mentioned earlier. PHYSICAL EXAMINATION: Alert and oriented x3. The pulse is 63, blood pressure 120/73, respiration 16, temperature 96.9, pulse 90% on room air. HEENT: Conjunctivae normal. Oral mucosa moist. NECK: No jugular venous distention. No carotid bruit. No lymph node enlargement. CARDIOVASCULAR: S1, S2. RESPIRATORY: Breath sounds diminished in the bases. A few rhonchi, no crackles. ABDOMEN: Soft, nontender. LEGS: Status post arthroplasty. NERVOUS SYSTEM: Higher functions as mentioned earlier. Moves all four limbs. No focal deficits LYMPHATICS: No lymphadenopathy in the neck, axillae, groin. SKIN: No ulcer, rash, bleeding. JOINTS: As mentioned earlier. LABS: WBC 12, hemoglobin 10.5, sodium 127. ASSESSMENT: 1. Status post revision right total knee arthroplasty. 2. Increased WBC. 3. Hyponatremia. 4. Asthma. 5. Cerebrovascular accident. 6. Deep venous thrombosis. 7. History of recent bronchitis. 8. Hypertension. 9. History of degenerative joint disease. 10.History of prostate disorder. 11.History of rheumatoid arthritis. 12.History of back surgery. 13.History of bipolar. 14.Remote history of nicotine dependence. RECOMMENDATIONS AND DISCUSSION: This 72-year-old gentleman who presented with multiple medical issues, at this time I recommend to continue the current management and symptomatic treatment. Otherwise at this time, I recommend resume the antibiotics and I would recommend incentive spirometry, DVT prophylaxis and the patient may be asked to follow with Dr. Brisa Brush in the outpatient setting closely. Thank you Dr. Farr, for letting us participate in the care of this patient. MMODL / IJN: [id number] / MTDAj
== END 2017-09-03 14:15 | disposition home health service (06) | DRG 467 ==
LOC: 2ORMAIN 11:50 → 3SUR 17:56
PROVIDERS: ADMIT Orthopaedic Surgery; ATTEND Orthopaedic Surgery
PROC: 0SRC069 Replacement of Right Knee Joint with Oxidized Zirconium on Polyethylene Synthetic Substitute, Cemented, Open Approach (ICD-10-PCS; 2017-09-02)
PROC: 0SPC0JZ Removal of Synthetic Substitute from Right Knee Joint, Open Approach (ICD-10-PCS; principal; 2017-09-02 15:00)
DX: T84.022A Instability of internal right knee prosthesis, initial encounter (principal); E87.1 Hypo-osmolality and hyponatremia; T84.012A Broken internal right knee prosthesis, initial encounter; J45.909 Unspecified asthma, uncomplicated; M06.9 Rheumatoid arthritis, unspecified; M19.90 Unspecified osteoarthritis, unspecified site; I11.9 Hypertensive heart disease without heart failure; N40.0 Benign prostatic hyperplasia without lower urinary tract symptoms; D72.829 Elevated white blood cell count, unspecified; J43.9 Emphysema, unspecified; I25.10 Atherosclerotic heart disease of native coronary artery without angina pectoris; I05.1 Rheumatic mitral insufficiency; E04.1 Nontoxic single thyroid nodule; E78.5 Hyperlipidemia, unspecified; Z86.73 Personal history of transient ischemic attack (TIA), and cerebral infarction without residual deficits; Z87.891 Personal history of nicotine dependence; Z79.82 Long term (current) use of aspirin; Z79.899 Other long term (current) drug therapy; Z88.1 Allergy status to other antibiotic agents; Z88.8 Allergy status to other drugs, medicaments and biological substances; Z86.718 Personal history of other venous thrombosis and embolism; Z80.9 Family history of malignant neoplasm, unspecified; Y79.2 Prosthetic and other implants, materials and accessory orthopedic devices associated with adverse incidents
CPT/HCPCS: 80048; 85025; 87070; 87075; 87205

== ENCOUNTER 2017-09-03 23:52 | Emergency (ER) | payer MEDICARE, BC | END 2017-09-04 01:05 | disposition home or self-care (01) | LOC: EC 23:52 | DX: M96.830 Postprocedural hemorrhage of a musculoskeletal structure following a musculoskeletal system procedure (principal); E11.9 Type 2 diabetes mellitus without complications; Z88.1 Allergy status to other antibiotic agents; Z79.4 Long term (current) use of insulin; Z87.891 Personal history of nicotine dependence | CPT/HCPCS: 99284 ==

== ENCOUNTER → 2017-12-02 | Outpatient (CLI) | payer MEDICARE, BC ==
--- NOTE | 2017-12-02 15:55 | XR ---
EXAMINATION TYPE: XR chest 2V DATE OF EXAM: 12/02/2017 COMPARISON: NONE HISTORY: Cough and congestion TECHNIQUE: Frontal and lateral views of the chest are obtained. FINDINGS: Minimal lateral subsegmental atelectasis is seen. No focal consolidation, pleural effusion or pneumothorax. Cardia mediastinal silhouette is within normal limits. There is generalized osseous demineralization and postsurgical changes of the rotator cuffs. IMPRESSION: Minimal bilateral subsegmental atelectasis, otherwise no acute cardiopulmonary process.
== END | disposition home or self-care (01) ==
LOC: RADXRMAIN 15:20
PROVIDERS: ATTEND Family Medicine
DX: R05 Cough (principal); R09.81 Nasal congestion
CPT/HCPCS: 71046; 87502

== ENCOUNTER → 2018-01-02 | Outpatient (CLI) | payer MEDICARE, BC ==
--- NOTE | 2018-01-02 16:30 | CT ---
EXAMINATION TYPE: CT soft tissue neck wo con DATE OF EXAM: 01/02/2018 HISTORY: lump RT side neck. Marked with BB COMPARISON: 06/03/[address] DLP: 704 mGycm. Automated Exposure Control for Dose Reduction was Utilized. TECHNIQUE: CT scan of the neck is performed without intravenous contrast, axial images are obtained, coronal and sagittal reformatted images are reviewed. FINDINGS: Airway: True and false focal cords are unremarkable. Vallecula is unremarkable. Density within the le ft piriform sinus most commonly relates to secretions. Parotid/submandibular glands: Submandibular and parotid glands are symmetric without surrounding infl ammatory fat stranding. No calculi are seen internally. Carotid/Vascular Structures: Calcific atheromatous changes are seen at the carotid bulbs. Carotid ult rasound could be performed to evaluate degree of stenosis at the patient cannot receive contrast. Osseous Structures: Moderate degenerative changes of the cervical spine and mild of the thoracic spin e are also partially visualized. Paranasal sinuses and mastoid air cells appear well aerated. Osseous structures are grossly intact. Other: The right-sided palpable abnormality marked with a BB relates to the right sternocleidomastoid muscle on series 3 image 42. This is symmetric to the left sternocleidomastoid muscle. No suspicious abnormality is seen deep to this marker. The thyroid gland is diffusely heterogenous and enlarged with extent to the sternal notch and right-s ided dystrophic calcifications as well as right-sided hypoattenuated nodules. There is partial visualization of early peripheral pulmonary fibrosis and cardiomegaly. Mild centrilo bular emphysematous changes are also partially visualized. IMPRESSION: 1. No abnormality deep to the right BB marker indicating the palpable lesion. Deep to this BB marker there is a normal-appearing sternocleidomastoid muscle symmetric to the left. 2. Enlarged and heterogenous thyroid gland with multiple thyroid nodules for which ultrasound-guided biopsy was recommended on the exam of 06/03/2017. Recommendation remains if not previously performed a t an outside institution. 3. Multiple incidental findings as described above including atheromatous changes of the carotid bulb s for which carotid ultrasound could be performed, peripheral arch the visualized pulmonary fibrosis and emphysema, and filling of the left piriform sinus that could relate to secretions.
== END ==
LOC: RADCTMAIN 13:22
PROVIDERS: ATTEND Family Medicine
DX: E04.2 Nontoxic multinodular goiter (principal)
CPT/HCPCS: 70490

== ENCOUNTER → 2018-02-12 | Outpatient (CLI) | payer MEDICARE, BC ==
--- NOTE | 2018-02-18 14:43 | P.ARTDOP ---
Arterial Doppler LOWER EXTREMITY ARTERIAL DOPPLER: DATE OF SERVICE: 02/12/2018 Reason for study: Bilateral leg pain. Doppler waveforms: Multiphasic bilaterally throughout. Pulse volume recording: Normal configuration. Pressure gradients: None. Ankle-brachial indices: Greater than 1 bilaterally. Toe pressures: [] on the right, [] on the left Impression: Normal study.
== END ==
LOC: RADUSWWP 12:20
PROVIDERS: ATTEND Family Medicine
DX: I73.9 Peripheral vascular disease, unspecified (principal)
CPT/HCPCS: 93923

== ENCOUNTER → 2018-03-03 | Outpatient (CLI) | payer MEDICARE, BC ==
--- NOTE | 2018-03-03 10:52 | XR ---
EXAMINATION TYPE: XR Hip Bilateral Complete, XR femur bilateral DATE OF EXAM: 03/03/2018 CLINICAL HISTORY: Chronic pain per order. TECHNIQUE: AP and frogleg views of the bilateral hips are obtained. 2 views bilateral femurs are acq uired. COMPARISON: None. FINDINGS: There is no acute fracture/dislocation evident in either hip. There is mild symmetric axia l joint space loss and mild acetabular spurring present bilaterally. Some right-sided pelvic phleboli ths are seen. Some left-sided vascular groin calcification is noted. Images of femurs show no acute fracture or dislocation. No suspicious focal lytic or sclerotic lesion s are seen. There is partial visualization of metallic hardware from total right knee arthroplasty. L eft knee shows moderate to advanced tricompartment joint space loss most prominent medial tibiofemora l compartment. Overlying soft tissue is unremarkable bilaterally. IMPRESSION: As above.
--- NOTE | 2018-03-03 10:57 | XR ---
EXAMINATION TYPE: XR lumbosacral spine min 4V DATE OF EXAM: 03/03/2018 CLINICAL HISTORY: Chronic low back pain. TECHNIQUE: Frontal, lateral, and oblique images of the lumbar spine are obtained. COMPARISON: None FINDINGS: There are 4 lumbar type vertebral bodies identified. L5 vertebra not well seen on frontal view. It is suspected sacralized. Posterior interpedicular rods and screws with artificial disc mater ial L3-L4 level is seen. There is grade 1 anterolisthesis of L3 on L4 measuring 8 mm lung anterior ma rgin. Posterior interpedicular rods and screws transfix L5-S1 level with slight grade 1 anterolisthes is of L5 on S1. Mild to moderate disc space narrowing L5-S1 level is present. Fracture through the S1 screw on the left is present on oblique image. There is moderate disc space narrowing with vacuum di sc phenomenon and endplate sclerosis at L2-L3 level. Vascular calcification of overlying abdominal ao rta is noted. Laminectomy defect with spinous process resection L4 and L5 level is noted. IMPRESSION: As above.
== END ==
LOC: RADXRMAIN 09:58
PROVIDERS: ATTEND Family Medicine
DX: M79.604 Pain in right leg (principal); G89.29 Other chronic pain; M48.07 Spinal stenosis, lumbosacral region; G95.89 Other specified diseases of spinal cord; I10 Essential (primary) hypertension
CPT/HCPCS: 72110; 73521

== ENCOUNTER → 2018-03-13 | Outpatient (CLI) | payer MEDICARE, BC ==
[2018-03-13 11:53] LABS: HCT 38.8 % (39.0-53.0); HGB 12.6 gm/dL (13.0-17.5); MCH 29.3 pg (25.0-35.0); MCHC 32.4 g/dL (31.0-37.0); MCV 90.4 fL (80.0-100.0); Mean Platelet Volume 8.4; Platelet Count 202 k/uL (150-450); RBC 4.29 m/uL (4.30-5.90); RDW 14.1 % (11.5-15.5)
[2018-03-13 12:14] LABS: Appearance,Urine Clear (Clear); Bilirubin,Urine Negative (Negative); Blood,Urine Negative (Negative); Color,Urine Yellow; Glucose,Urine (UA) Negative (Negative); Ketones,Urine Negative (Negative); Leukocyte Esterase,Urine Negative (Negative); Nitrite,Urine Negative (Negative); PH, Urine 6.5 (5.0-8.0); Protein,Urine Negative (Negative); Specific Gravity,Urine 1.014 (1.001-1.035); Urobilinogen,Urine <2.0 mg/dL (<2.0)
[2018-03-13 17:37] LABS: Parathyroid Hormone Intact 57.1 pg/mL (14.0-72.0)
[2018-03-13 17:39] LABS: Iron Saturation 24.56 (15.00-50.00)
[2018-03-13 17:48] LABS: Vitamin D 25 Hydroxy 32.8 ng/mL (30.0-100.0)
[2018-03-13 18:01] LABS: Albumin 4.3 g/dL (3.80-4.90); Albumin/Globulin Ratio 2.26 (1.60-3.17); Anion Gap 6.5 mmol/L (4.00-12.00); Calcium 9.5 mg/dL (8.7-10.3); Carbon Dioxide 26.5 mmol/L (21.6-31.8); Globulin 1.9 g/dL (1.6-3.3); Magnesium 1.8 mg/dL (1.5-2.4); Phosphorus 3.6 mg/dL (2.4-5.1); Potassium 5.3 mmol/L (3.5-5.5); Total Bilirubin 0.5 mg/dL (0.2-1.2); Total Protein 6.2 g/dL (6.2-8.2); Uric Acid 6.8 mg/dL (3.7-8.7)
[2018-03-13 19:05] LABS: Creatinine,Urine Random 100.7 mg/dL
[2018-03-13 19:23] LABS: Total Protein,Urine Random 11.9 mg/dL (0.0-13.5)
== END | disposition home or self-care (01) ==
LOC: LABWHC1 11:03
PROVIDERS: ATTEND Internal Medicine
DX: E03.9 Hypothyroidism, unspecified (principal); N18.3 Chronic kidney disease, stage 3 (moderate); D63.1 Anemia in chronic kidney disease; N25.81 Secondary hyperparathyroidism of renal origin; E55.9 Vitamin D deficiency, unspecified; M10.9 Gout, unspecified
CPT/HCPCS: 36415; 80053; 81003; 82088; 82306; 82570; 82728; 83540; 83550; 83735; 83835; 83970; 84100; 84156; 84244; 84443; 84550; 85027

== ENCOUNTER → 2018-06-02 | Outpatient (CLI) | payer MEDICARE, BC ==
--- NOTE | 2018-06-02 15:50 | CT ---
EXAMINATION TYPE: CT lumbar spine wo con DATE OF EXAM: 06/02/2018 COMPARISON: Radiographs 03/03/2018 HISTORY: 73-year-old male spinal stenosis lumbar region, Low back pain and pain into bilateral legs, worse on left. TECHNIQUE: Contiguous axial scanning of the spine without IV contrast. Coronal and sagittal reconstru ctions performed. CT DLP: 884 mGycm Automated exposure control for dose reduction was used. FINDINGS: There are postsurgical changes of L3-S1 posterior fusion. Interbody device at the L3-L4 level. 2.4 cm low-density nodule left adrenal gland. Attenuation is 0 Hounsfield units compatible with a lip id rich adrenal adenoma. Otherwise, no prevertebral or paravertebral soft tissue abnormality. There is fixed grade 2 to grade 3 anterolisthesis at L5-S1 and fixed grade 1 anterolisthesis at L3-L4 . Moderate degenerative disc disease above the fusion at L2-L3. There is a disc osteophyte complex tear mild narrowing the spinal canal. Additional large posterior disc protrusion at L1-L2 impressing onto the ventral thecal sac. Extensive metal hardware artifact limiting assessment. On the left, suspect moderate neuroforaminal stenosis at L2-L3 and possibly severe at L5-S1. On the right, moderate neural foraminal stenosis at L2-L3 and severe at L5-S1. Vertebral body heights are preserved. IMPRESSION: 1. STATUS POST L3-S1 POSTERIOR FUSION. ADDITIONAL INTERBODY FUSION AT L3-L4. 2. FIXED GRADE 2 TO GRADE 3 ANTEROLISTHESIS OF L5-S1 AND FIXED GRADE 1 ANTEROLISTHESIS AT L3-L4. 3. PROMINENT DEGENERATIVE DISC DISEASE ABOVE THE FUSION AT L2-L3. DISC BULGES AT BOTH L1-L2 AND L2-L3 MILDLY NARROW THE SPINAL CANAL. 4. MODERATE BILATERAL NEUROFORAMINAL STENOSES AT L2-L3 AND SEVERE AT L5-S1. 5. 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
== END | disposition home or self-care (01) ==
LOC: RADCTMAIN 11:52
PROVIDERS: ATTEND Internal Medicine Rheumatology
DX: M48.061 Spinal stenosis, lumbar region without neurogenic claudication (principal); M48.07 Spinal stenosis, lumbosacral region; M51.26 Other intervertebral disc displacement, lumbar region; M51.36 Other intervertebral disc degeneration, lumbar region; M43.16 Spondylolisthesis, lumbar region; M43.17 Spondylolisthesis, lumbosacral region; Z98.1 Arthrodesis status
CPT/HCPCS: 72131

== ENCOUNTER → 2019-09-27 | Outpatient (CLI) | payer BC, MEDICARE ==
[2019-09-27 16:09] LABS: T4, Free (Free Thyroxine) 1.4 ng/dL (0.80-1.80)
[2019-09-27 16:10] LABS: Ferritin 60.8 ng/mL (22.0-322.0)
[2019-09-27 16:51] LABS: African American GFR (CKD) 95.8 (60.0-200.0); Albumin 4.3 g/dL (3.80-4.90); Albumin/Globulin Ratio 2.26 (1.60-3.17); Anion Gap 7.1 mmol/L (4.00-12.00); BUN/Creat Ratio 25.56 Ratio (12.00-20.00); C Reactive Protein, High Sens 1.14 mg/L (0.000-3.000); Calcium 9.5 mg/dL (8.7-10.3); Carbon Dioxide 24.9 mmol/L (21.6-31.8); Chol/HDL Ratio 2.35; Globulin 1.9 g/dL (1.6-3.3); LDL Cholesterol,Calculated 62.8 mg/dL (0.0-131.0); Non-African American GFR(CKD) 82.7 (60.0-200.0); Potassium 4.6 mmol/L (3.5-5.5); Total Bilirubin 0.5 mg/dL (0.2-1.2); Total Protein 6.2 g/dL (6.2-8.2); VLDL Calculation 14.2 mg/dL (5.00-40.00)
[2019-09-27 17:46] LABS: Hemoglobin A1C 5.2 % (4.0-6.0)
[2019-09-27 18:07] LABS: Thyroid Peroxidase Antibodies 37.3 U/mL (0.0-60.0)
[2019-09-27 18:09] LABS: DHEA Sulfate 25.4 ug/dL (34.5-568.9)
[2019-09-27 18:11] LABS: Insulin Level 5.8 mIU/mL (3.0-25.0)
[2019-10-01 10:49] LABS: Albumin, LC/MS/MS 4.2 g/dL (3.6-5.1); Testosterone, Free, LC/MS/MS 31.1 pg/mL (6.0-73.0)
== END | disposition home or self-care (01) ==
LOC: LABWHC1 08:08
PROVIDERS: ATTEND Specialist
DX: G31.84 Mild cognitive impairment of uncertain or unknown etiology (principal); N52.9 Male erectile dysfunction, unspecified; R53.83 Other fatigue; G44.009 Cluster headache syndrome, unspecified, not intractable; I10 Essential (primary) hypertension; N53.9 Unspecified male sexual dysfunction; F51.02 Adjustment insomnia; E88.81 Metabolic syndrome and other insulin resistance; M19.90 Unspecified osteoarthritis, unspecified site; R00.2 Palpitations
CPT/HCPCS: 36415; 80053; 80061; 82040; 82306; 82533; 82627; 82670; 82728; 83036; 83090; 83525; 83695; 84153; 84270; 84403; 84439; 84443; 84481; 84482; 85384; 86141; 86376; 86628; 86800

== ENCOUNTER → 2020-01-03 | Outpatient (CLI) | payer MEDICARE ==
[2020-01-03 16:32] LABS: DHEA Sulfate 178.8 ug/dL (34.5-568.9)
[2020-01-03 16:33] LABS: Chol/HDL Ratio 2.69; LDL Cholesterol,Calculated 75.2 mg/dL (0.0-131.0); VLDL Calculation 12.8 mg/dL (5.00-40.00)
[2020-01-03 16:42] LABS: T4, Free (Free Thyroxine) 1.2 ng/dL (0.80-1.80)
== END | disposition home or self-care (01) ==
LOC: LABWHC1 09:09
PROVIDERS: ATTEND Specialist
DX: I10 Essential (primary) hypertension (principal); E88.81 Metabolic syndrome and other insulin resistance; G44.009 Cluster headache syndrome, unspecified, not intractable; G31.84 Mild cognitive impairment of uncertain or unknown etiology; F51.02 Adjustment insomnia; N53.9 Unspecified male sexual dysfunction; N52.9 Male erectile dysfunction, unspecified; M19.90 Unspecified osteoarthritis, unspecified site; R00.2 Palpitations; R53.83 Other fatigue
CPT/HCPCS: 36415; 80061; 82306; 82627; 83090; 84439; 84443; 84481

== ENCOUNTER → 2020-02-16 | Outpatient (CLI) | payer MEDICARE | END | disposition home or self-care (01) | LOC: LABWHC1 14:40 | PROVIDERS: ATTEND Family Medicine | DX: Z20.828 Contact with and (suspected) exposure to other viral communicable diseases (principal) | CPT/HCPCS: U0003; C9803 ==

== ENCOUNTER → 2020-03-21 | Outpatient (CLI) | payer MEDICARE ==
[2020-03-21 15:28] LABS: Basophils # (A) 0 X 10*3/uL (0.00-0.10); Basophils % (A) 0 %; Eosinophils # (A) 0 X 10*3/uL (0.04-0.35); Eosinophils % (A) 0 %; HCT 22.4 % (39.6-50.0); HGB 7.1 g/dL (13.0-17.0); Lymphocytes # (A) 0.55 X 10*3/uL (0.90-5.00); Lymphocytes % (A) 16.9 %; MCHC 31.7 g/dL (32.0-37.0); MCV 94.5 fL (80.0-97.0); Mean Platelet Volume 10.5 fL (9.5-12.2); Monocytes # (A) 0.38 X 10*3/uL (0.20-1.00); Monocytes % (A) 11.7 %; Neutrophils # (A) 2.32 X 10*3/uL (1.80-7.70); Neutrophils % (A) 71.1 %; Platelet Count 244 X 10*3/uL (140-440); RBC 2.37 X 10*6/uL (4.40-5.60); RDW 13.2 % (11.5-14.5); WBC 3.26 X 10*3/uL (4.50-10.00)
[2020-03-21 15:47] LABS: Insulin Level 4.8 mIU/mL (3.0-25.0)
[2020-03-21 15:48] LABS: ALT 24 U/L (10-49); AST 24 U/L (14-35); African American GFR (CKD) 83.8 (60.0-200.0); Albumin/Globulin Ratio 2.67 (1.60-3.17); Alkaline Phosphatase 85 U/L (41-126); Calcium 8.7 mg/dL (8.7-10.3); Carbon Dioxide 27.6 mmol/L (21.6-31.8); Chloride 105 mmol/L (96-109); Chol/HDL Ratio 2.13; Cholesterol 111 mg/dL (0-200); Globulin 1.5 g/dL (1.6-3.3); Glucose 122 mg/dL (70-110); Non-African American GFR(CKD) 72.3 (60.0-200.0); Potassium 4.6 mmol/L (3.5-5.5); Sodium 135 mmol/L (135-145); Total Bilirubin 0.4 mg/dL (0.3-1.2); Total Protein 5.5 g/dL (6.2-8.2); Triglycerides <50.0 mg/dL (0.0-149.0)
[2020-03-21 15:50] LABS: Thyroid Peroxidase Antibodies <28.0 U/mL (0.0-60.0)
[2020-03-21 15:56] LABS: Ferritin 30.3 ng/mL (22.0-322.0)
[2020-03-21 15:57] LABS: Estradiol 30.7 pg/mL
== END | disposition home or self-care (01) ==
LOC: LABWHC1 09:00
PROVIDERS: ATTEND Specialist
DX: G31.84 Mild cognitive impairment of uncertain or unknown etiology (principal); R73.01 Impaired fasting glucose; E29.1 Testicular hypofunction; F51.04 Psychophysiologic insomnia; F52.21 Male erectile disorder; R53.83 Other fatigue; G44.209 Tension-type headache, unspecified, not intractable; I10 Essential (primary) hypertension; R00.2 Palpitations; M19.90 Unspecified osteoarthritis, unspecified site
CPT/HCPCS: 36415; 80053; 80061; 82040; 82306; 82642; 82670; 82728; 83036; 83090; 83525; 84270; 84403; 84439; 84443; 84481; 84482; 85025; 86141; 86376; 86800

== ENCOUNTER 2020-04-06 10:22 | Emergency (ER) | payer MEDICARE ==
[2020-04-06] MEDS ORDERED: PANTOPRAZOLE 40 MG/10 ML VIAL IVP STA (10:40)
--- NOTE | 2020-04-06 10:47 | ED ---
General Adult HPI - General Chief complaint: Recheck/Abnormal Lab/Rx Stated complaint: Low Hemoglobin Time Seen by Provider: 04/06/20 10:28 Source: patient, RN notes reviewed Mode of arrival: ambulatory Limitations: no limitations - History of Present Illness Initial comments: 75-year-old male presents emergency Department chief complaint of possible ane isiah. Patient had blood work on 03/21/2020. She is having some bloody diarrhea at that time. Patient's hemoglobin was 7.1 but states that he did not want hospital he started taking iron supplement and he states his diarrhea and bloody stool resolved. Patient has not taken any aspirin or any blood thinners. He has no mental abdominal pain, chest pain current headache, hematuria. Patient states that yesterday during his aerobics he felt slightly lightheaded and became concerned that is not had any symptoms of that today. Patient has not had a repeat hemoglobin. Patient offers no prior history of GI bleed or prior transfusion. - Related Data Home Medications Medication Instructions Recorded Confirmed lisinopriL 40 mg PO DAILY 08/19/17 04/06/20 Berberine Supplement (Unknown 1 dose PO TID-W/MEALS 04/06/20 04/06/20 Strength) Iron Polysaccharide Complex 150 mg PO DAILY 04/06/20 04/06/20 [Ferrex 150] L.acidoph,Paracasei, B.lactis 1 tab PO DAILY 04/06/20 04/06/20 [Probiotic] Magnesium (Unknown Strength) 1 tab PO DAILY 04/06/20 04/06/20 [place]-3 Fatty Acids/Fish Oil [Fish 1 tab PO DAILY 04/06/20 04/06/20 Oil 1,000 mg Softgel] Previous Rx's Medication Instructions Recorded Meclizine [Antivert] 25 mg PO TID PRN #15 tab 04/06/20 Allergies Allergy/AdvReac Type Severity Reaction Status Date / Time lamotrigine [From Lamictal] Allergy Rash/Hives Verified 04/06/20 11:04 vancomycin Allergy Rash/Hives Verified 04/06/20 11:04 Review of Systems ROS Statement: Those systems with pertinent positive or pertinent negative responses have been documented in the HPI. ROS Other: All systems not noted in ROS Statement are negative. 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, IBS, "prediabetic -insulin resistant", DVT right leg 2012 History of Any Multi-Drug Resistant Organisms: None Reported Past Surgical History: Back Surgery, Cholecystectomy, Heart Catheterization, Joint Replacement, Tonsillectomy Additional Past Surgical History / Comment(s): laminectomy x 2, rt knee replacement, corey cataracts removed Past Anesthesia/Blood Transfusion Reactions: No Reported Reaction Past Psychological History: Bipolar Smoking Status: Former smoker Past Alcohol Use History: None Reported Past Drug Use History: None Reported - Past Family History Father Family Medical History: Cancer General Exam Limitations: no limitations General appearance: alert, in no apparent distress Head exam: Present: atraumatic, normocephalic, normal inspection Eye exam: Present: normal appearance, PERRL, EOMI. Absent: scleral icterus, conjunctival injection, periorbital swelling ENT exam: Present: normal exam, normal oropharynx, mucous membranes moist Neck exam: Present: normal inspection. Absent: tenderness, meningismus, lymphadenopathy Respiratory exam: Present: normal lung sounds bilaterally. Absent: respiratory distress, wheezes, rales, rhonchi, stridor Cardiovascular Exam: Present: regular rate, normal rhythm, normal heart sounds. Absent: systolic murmur, diastolic murmur, rubs, gallop, clicks GI/Abdominal exam: Present: soft, normal bowel sounds. Absent: distended, tenderness, guarding, rebound, rigid Neurological exam: Present: alert, oriented X3 Skin exam: Present: warm, dry, intact, normal color. Absent: rash Course Vital Signs 04/06/20 04/06/20 10:25 11:00 Temperature 98.1 F Pulse Rate 92 79 Respiratory 18 19 Rate Blood Pressure 171/78 137/77 O2 Sat by Pulse 99 100 Oximetry Medical Decision Making - Medical Decision Making 75-year-old presented for episode of lightheadedness during aerobics yesterday. Patient is concerned about his hemoglobin though is currently 9.9 up from 7.1 with no active bleeding. Patient was given 500 mL bolus of fluids along with Antivert and feels greatly improved with no recurrent of episodes. Patient we discharged in stable condition. - Lab Data Result diagrams: 04/06/20 10:45 04/06/20 10:45 Lab Results 04/06/20 04/06/20 04/06/20 Range/Units 10:45 10:45 10:45 WBC 4.5 (3.8-10.6) k/uL RBC 3.53 L (4.30-5.90) m/uL Hgb 9.9 L (13.0-17.5) gm/dL Hct 31.1 L (39.0-53.0) % MCV 88.1 (80.0-100.0) fL MCH 28.0 (25.0-35.0) pg MCHC 31.7 (31.0-37.0) g/dL RDW 14.3 (11.5-15.5) % Plt Count 215 (150-450) k/uL MPV 7.4 Neutrophils % 73 % Lymphocytes % 17 % Monocytes % 8 % Eosinophils % 0 % Basophils % 0 % Neutrophils # 3.2 (1.3-7.7) k/uL Lymphocytes # 0.8 L (1.0-4.8) k/uL Monocytes # 0.4 (0-1.0) k/uL Eosinophils # 0.0 (0-0.7) k/uL Basophils # 0.0 (0-0.2) k/uL Hypochromasia Moderate Poikilocytosis Slight PT 10.1 (9.0-12.0) sec INR 0.9 (<1.2) APTT 24.5 (22.0-30.0) sec Sodium 131 L (137-145) mmol/L Potassium 4.7 (3.5-5.1) mmol/L Chloride 98 (98-107) mmol/L Carbon Dioxide 23 (22-30) mmol/L Anion Gap 10 mmol/L BUN 24 H (9-20) mg/dL Creatinine 0.85 (0.66-1.25) mg/dL Est GFR (CKD-EPI)AfAm >90 (>60 ml/min/1.73 sqM) Est GFR (CKD-EPI)NonAf 84 (>60 ml/min/1.73 sqM) Glucose 118 H (74-99) mg/dL Calcium 9.5 (8.4-10.2) mg/dL Total Bilirubin 0.4 (0.2-1.3) mg/dL AST 40 (17-59) U/L ALT 30 (4-49) U/L Alkaline Phosphatase 90 (38-126) U/L Troponin I (0.000-0.034) ng/mL Total Protein 7.0 (6.3-8.2) g/dL Albumin 4.5 (3.5-5.0) g/dL Blood Type Blood Type Confirm Blood Type Recheck Bld Type Recheck Status Antibody Screen Spec Expiration Date 04/06/20 04/06/20 04/06/20 Range/Units 10:45 10:45 11:33 WBC (3.8-10.6) k/uL RBC (4.30-5.90) m/uL Hgb (13.0-17.5) gm/dL Hct (39.0-53.0) % MCV (80.0-100.0) fL MCH (25.0-35.0) pg MCHC (31.0-37.0) g/dL RDW (11.5-15.5) % Plt Count (150-450) k/uL MPV Neutrophils % % Lymphocytes % % Monocytes % % Eosinophils % % Basophils % % Neutrophils # (1.3-7.7) k/uL Lymphocytes # (1.0-4.8) k/uL Monocytes # (0-1.0) k/uL Eosinophils # (0-0.7) k/uL Basophils # (0-0.2) k/uL Hypochromasia Poikilocytosis PT (9.0-12.0) sec INR (<1.2) APTT (22.0-30.0) sec Sodium (137-145) mmol/L Potassium (3.5-5.1) mmol/L Chloride (98-107) mmol/L Carbon Dioxide (22-30) mmol/L Anion Gap mmol/L BUN (9-20) mg/dL Creatinine (0.66-1.25) mg/dL Est GFR (CKD-EPI)AfAm (>60 ml/min/1.73 sqM) Est GFR (CKD-EPI)NonAf (>60 ml/min/1.73 sqM) Glucose (74-99) mg/dL Calcium (8.4-10.2) mg/dL Total Bilirubin (0.2-1.3) mg/dL AST (17-59) U/L ALT (4-49) U/L Alkaline Phosphatase (38-126) U/L Troponin I <0.012 (0.000-0.034) ng/mL Total Protein (6.3-8.2) g/dL Albumin (3.5-5.0) g/dL Blood Type A Positive Blood Type Confirm A Positive Blood Type Recheck No Previous Record Bld Type Recheck Status CABO Indicated Antibody Screen NEGATIVE Spec Expiration Date 04/09/20202344 Disposition Clinical Impression: Lightheaded, Vertigo, Anemia Disposition: HOME SELF-CARE Condition: Stable Instructions (If sedation given, give patient instructions): Vertigo (ED) Additional Instructions: Please return to the Emergency Department if symptoms worsen or any other concerns. Prescriptions: Meclizine [Antivert] 25 mg PO TID PRN #15 tab PRN Reason: Vertigo Is patient prescribed a controlled substance at d/c from ED?: No Referrals: Brisa Brush MD [Primary Care Provider] - 1-2 days Time of Disposition: 13:08
[2020-04-06 11:04] LABS: Basophils % (A) 0 %; Eosinophils % (A) 0 %; HCT 31.1 % (39.0-53.0); HGB 9.9 gm/dL (13.0-17.5); Hypochromasia Moderate; Lymphocytes # (A) 0.8 k/uL (1.0-4.8); Lymphocytes % (A) 17 %; MCHC 31.7 g/dL (31.0-37.0); MCV 88.1 fL (80.0-100.0); Mean Platelet Volume 7.4; Monocytes # (A) 0.4 k/uL (0-1.0); Monocytes % (A) 8 %; Neutrophils # (A) 3.2 k/uL (1.3-7.7); Neutrophils % (A) 73 %; Platelet Count 215 k/uL (150-450); Poikilocytosis Slight; RBC 3.53 m/uL (4.30-5.90); RDW 14.3 % (11.5-15.5); WBC 4.5 k/uL (3.8-10.6)
[2020-04-06 11:09] LABS: INR 0.9 (<1.2); Partial Thromboplastin Time 24.5 sec (22.0-30.0); Prothrombin Time 10.1 sec (9.0-12.0)
[2020-04-06 11:15] LABS: ALT 30 U/L (4-49); AST 40 U/L (17-59); African American GFR (CKD) >90 (>60 ml/min/1.73 sqM); Albumin 4.5 g/dL (3.5-5.0); Alkaline Phosphatase 90 U/L (38-126); Anion Gap 10 mmol/L; Blood Urea Nitrogen 24 mg/dL (9-20); Calcium 9.5 mg/dL (8.4-10.2); Carbon Dioxide 23 mmol/L (22-30); Chloride 98 mmol/L (98-107); Glucose 118 mg/dL (74-99); Non-African American GFR(CKD) 84 (>60 ml/min/1.73 sqM); Potassium 4.7 mmol/L (3.5-5.1); Sodium 131 mmol/L (137-145); Total Bilirubin 0.4 mg/dL (0.2-1.3)
[2020-04-06] MEDS ORDERED: SODIUM CHLORIDE 0.9% 500 ML 500 ML IV ONE (11:53)
[2020-04-06] MEDS ORDERED: MECLIZINE 12.5 MG TAB PO STA (11:53)
[2020-04-06 13:09] VITALS: RESP 18; TEMP 97.8
[2020-04-06 13:29] VITALS: BP 145/76; PULSE 77
== END 2020-04-06 13:18 | disposition home or self-care (01) ==
LOC: EC 10:22
DX: D64.9 Anemia, unspecified (principal); I10 Essential (primary) hypertension; M06.9 Rheumatoid arthritis, unspecified; I69.354 Hemiplegia and hemiparesis following cerebral infarction affecting left non-dominant side; Z86.718 Personal history of other venous thrombosis and embolism; Z79.899 Other long term (current) drug therapy; Z95.5 Presence of coronary angioplasty implant and graft; Z88.1 Allergy status to other antibiotic agents; Z88.0 Allergy status to penicillin; Z87.891 Personal history of nicotine dependence
CPT/HCPCS: 36415; 93005; 86900; 86901; 80053; 84484; 85025; 85610; 85730; 86850; 99284; 96374; 96361; C9113

== ENCOUNTER 2020-04-17 07:16 | Day surgery (SDC) | payer MEDICARE ==
[2020-04-12 12:33] VITALS: BMI 24.7
[~2020-04-17 07:16] MED LIST changes: -ACETAMINOPHEN TAB 500 MG TAB PO ONE; -DEXAMETHASONE SOD PHOSPHATE 10 MG/ML 1 ML VIAL IV ONE; -HYDROmorphone 0.5 MG/0.5 ML SYRINGE IVP PRN; +LACTATED RINGERS 1,000 ML IV SCH; +LIDOCAINE 1% (10MG/ML) FOR IV START INTRADERMA PRN; -LIDOCAINE 1% 20 ML VIAL (10MG/ML) FOR IV START INTRADERMA PRN; -MELOXICAM 7.5 MG TAB PO ONE; -MIDAZOLAM 2 MG/2 ML VIAL IV PRN; -ONDANSETRON 4 MG/2 ML VIAL IVP ONE; -SCOPOLAMINE 1.5MG/72HR PATCH TRANSDERM ONE; -TRANEXAMIC ACID 1,000 MG in SODIUM CHLORIDE 0.9% 50 ML IVPB ONE
[2020-04-17 07:56] LABS: Glucose,Whole Blood 107 mg/dL (75-99)
[2020-04-17 07:57] VITALS: TEMP 97.5
[2020-04-17] MEDS ORDERED: PROPOFOL 10 MG/ML 20 ML VIAL IV ONE (08:01)
[2020-04-17] MEDS ORDERED: LIDOCAINE 1% INJ 10MG/ML (20 ML MDV) ONE (08:01)
--- NOTE | 2020-04-17 08:52 | P.PCN ---
Date of Procedure: 04/17/20 Description of Procedure: Brief history: Patient is a 75-year-old male presents for outpatient EGD and colonoscopy for evaluation of iron deficiency anemia/anemia. Patient reports episodes of bright red blood per rectum for which he presented to the ER and hemoglobin was 9 at that time. Currently on iron supplementation. Last colonoscopy 11 years ago significant for polypectomy as per his report Procedure performed: Esophagogastroduodenoscopy with biopsy Colonoscopy with polypectomy Estimated blood loss: Minimal. Preoperative diagnosis: Iron deficiency anemia, patient reports last colonoscopy 11 years ago. Anesthesia: MAC Procedure: After informed consent was obtained from the patient was brought into the endoscopy unit and IV sedation was administered by anesthesia under continuous monitoring. Initially upper endoscopy was done. The Olympus GF 190 video endoscope was inserted into the mouth and esophagus intubated without any difficulty and was gradually advanced into the stomach and duodenum and carefully examined. The bulb and second part of the duodenum appeared normal, with biopsies taken . The scope was then withdrawn into the stomach adequately insufflated with air and upon careful examination the antrum and body, cardia and fundus appeared normal, except for some mild punctate erythema in the antrum and body suggestive of mild gastritis with biopsies taken. The scope was then withdrawn into the esophagus. The GE junction was located at 39 cm to the incisors and biopsied. Small 1 cm hiatal hernia noted. It appeared regular with no erythema erosions or ulcerations. Rest of the esophagus appeared normal. Patient tolerated the procedure well. At this time the patient continued to remain sedation. Initial digital rectal examination was normal. Olympus CF 190 video colonoscope was then inserted into the rectum and gradually advanced to the cecum without any difficulty. Careful examination was performed as the scope was gradually being withdrawn. The prep was excellent. The cecum, ascending colon, transverse colon, descending colon, sigmoid colon and rectum appeared normal. Multiple small and large mouth diverticula noted throughout the colon. Cold snare polypectomy of polyps measuring 4 mm in the cecum, 5 mm in the ascending colon and 3 mm in the sigmoid colon. Retroflexion was performed in the rectum and no lesions were noted. Patient tolerated the procedure well. Impression: 1. Mild gastritis. Biopsies of the duodenum, antrum and body and GE junction. Small hiatal hernia. 2. Moderate pandiverticulosis. 3 polyps removed with cold snare polypectomy from the cecum, ascending colon and sigmoid colon. Recommendations: Findings of this examination were discussed with the patient as well as his family. Okay to resume diet. Okay to resume medications. Await pathology from polypectomies. Recommend repeat colonoscopy in 3 years for history of colon polyps pending pathology from polypectomies.
[2020-04-17 09:06] VITALS: BP 127/73; PULSE 73; RESP 16
== END 2020-04-17 09:38 | disposition home or self-care (01) ==
LOC: ORWHC2ENDO 07:16
PROVIDERS: ATTEND Internal Medicine
DX: K29.71 Gastritis, unspecified, with bleeding (principal); K57.31 Diverticulosis of large intestine without perforation or abscess with bleeding; K44.9 Diaphragmatic hernia without obstruction or gangrene; D12.2 Benign neoplasm of ascending colon; D12.0 Benign neoplasm of cecum; D12.5 Benign neoplasm of sigmoid colon; D50.9 Iron deficiency anemia, unspecified; E11.9 Type 2 diabetes mellitus without complications; J45.909 Unspecified asthma, uncomplicated; Z79.899 Other long term (current) drug therapy; Z88.1 Allergy status to other antibiotic agents; Z88.8 Allergy status to other drugs, medicaments and biological substances; Z86.73 Personal history of transient ischemic attack (TIA), and cerebral infarction without residual deficits; Z87.891 Personal history of nicotine dependence
CPT/HCPCS: 88305; 45385; 43239; J2001; J2704

== ENCOUNTER → 2020-04-19 | Outpatient (CLI) | payer MEDICARE ==
--- NOTE | 2020-04-19 16:03 | CONS ---
CONSULTATION DATE OF SERVICE: 04/19/2020 This 75-year-old gentleman has been evaluated in the sleep center for problem with his sleep, mostly related to restless legs and significant amount of movements during the sleep. His sleep schedule from 2 to 3 a.m. until 7 a.m. Sometimes he has problems with falling asleep. No TV in bedroom. He sleeps in different positions including side and back. No history of snoring. The patient wakes up from sleep 3 times with nocturia. The patient lives by himself, so no information about breathing. In the morning, patient wakes up tired, feels tired and sleepy during the day, mostly fatigue. [place] Sleepiness Scale is 1. No history of hypnagogic hallucinations, sleep paralysis or cataplexy. Again during the sleep, patient has some unusual movements and irregular movements with the legs, arms, and sometimes head. PAST MEDICAL HISTORY: Positive for hypertension, COPD, acid reflux, diabetes mellitus, anemia. PAST SURGICAL HISTORY: Right knee replacement. MEDICATIONS: Lisinopril 40 mg once a day. SOCIAL HISTORY: Positive for smoking in the past; quit in 1987. Alcohol consumption negative. FAMILY HISTORY: Cancer. PHYSICAL EXAMINATION: GENERAL: gentleman without distress. VITAL SIGNS: BP 156/76, HR 80, RR 18, height 5 feet 6 inches, weight 155.0, temperature 98.6, oxygen saturation at room air 99%, body mass index 25.1. Neck 14-1/2 inches in circumference. HEENT: PERRLA, EOMI. Oropharynx practically normal position of soft palate. Mallampati 2. NECK: Supple, no JVD. Thyroid is not palpable. LUNGS: Clear to percussion and to auscultation. Good air exchange. No wheezing or rhonchi. HEART: S1, S2 regular. No murmurs, gallops, or rubs. ABDOMEN: Soft and nontender. Bowel sounds are present. No organomegaly appreciated. EXTREMITIES: No clubbing or cyanosis. CUSTOMER MANAGER: Awake, alert, and oriented X3. Cranial nerves 2 to 7 intact. There is no fasciculation or atrophy. noted. No focal deficits observed. IMPRESSION: 1. Significant amount of movements during sleep, possibly periodic limb movements. Differential diagnosis also includes parasomnia including REM sleep behavioral disorder, but is difficult to get detail information because patient sleeps by himself. 2. Restless legs symptoms. 3. Hypertension. 4. History of chronic obstructive pulmonary disease. 5. History of acid reflux. 6. History of diabetes mellitus, according to patient. 7. History of anemia according to patient. 8. Status post right knee replacement. PLAN: 1. Polysomnography for evaluation of patient's sleep to check his movements and possible parasomnia. 2. Following plan after reviewing results of sleep study. 3. Sleep hygiene with regular time in bed for 7-1/2 hours. I would recommend more bright sun exposure in the morning to move his sleep cycle earlier. 4. Iron supplement. Patient told that he has iron deficiency. Iron deficiency increases risk for restless legs and periodic limb movements. 5. No driving if feeling sleepiness. Thank you very much for referring this patient for consultation. Sincerely, William Mcclellan MD, PhD, FAASM Diplomat of [place] [employer] [place] [employer] Nuclear Medicine Technician [facility] MMODL / IJN: [id number] /
== END ==
LOC: SLEEP 13:12
PROVIDERS: ATTEND Internal Medicine
DX: G47.69 Other sleep related movement disorders (principal); G25.81 Restless legs syndrome; I10 Essential (primary) hypertension; J44.9 Chronic obstructive pulmonary disease, unspecified; K21.9 Gastro-esophageal reflux disease without esophagitis; E11.9 Type 2 diabetes mellitus without complications; Z86.2 Personal history of diseases of the blood and blood-forming organs and certain disorders involving the immune mechanism; Z96.651 Presence of right artificial knee joint; Z87.891 Personal history of nicotine dependence; Z79.899 Other long term (current) drug therapy
CPT/HCPCS: 99211

== ENCOUNTER → 2020-04-25 | Outpatient (CLI) | payer MEDICARE ==
[2020-04-25 15:13] LABS: Basophils # (A) 0 X 10*3/uL (0.00-0.10); Basophils % (A) 0 %; Eosinophils # (A) 0 X 10*3/uL (0.04-0.35); Eosinophils % (A) 0 %; HCT 28.6 % (39.6-50.0); HGB 9.1 g/dL (13.0-17.0); Lymphocytes # (A) 0.63 X 10*3/uL (0.90-5.00); Lymphocytes % (A) 16.7 %; MCH 26.6 pg (27.0-32.0); MCHC 31.8 g/dL (32.0-37.0); MCV 83.6 fL (80.0-97.0); Mean Platelet Volume 10.5 fL (9.5-12.2); Monocytes # (A) 0.47 X 10*3/uL (0.20-1.00); Monocytes % (A) 12.4 %; Neutrophils # (A) 2.66 X 10*3/uL (1.80-7.70); Neutrophils % (A) 70.4 %; Platelet Count 296 X 10*3/uL (140-440); RBC 3.42 X 10*6/uL (4.40-5.60); WBC 3.78 X 10*3/uL (4.50-10.00)
[2020-04-25 16:24] LABS: Insulin Level 6.2 mIU/mL (3.0-25.0)
[2020-04-25 16:36] LABS: Thyroid Peroxidase Antibodies <28.0 U/mL (0.0-60.0)
[2020-04-25 16:37] LABS: % Iron Saturation 3.68 (15.00-50.00); ALT 18 U/L (10-49); AST 20 U/L (14-35); African American GFR (CKD) 83.8 (60.0-200.0); Albumin/Globulin Ratio 2.53 (1.60-3.17); Alkaline Phosphatase 95 U/L (41-126); Calcium 9.4 mg/dL (8.7-10.3); Carbon Dioxide 24.9 mmol/L (21.6-31.8); Chloride 102 mmol/L (96-109); Chol/HDL Ratio 1.87; Cholesterol 114 mg/dL (0-200); Globulin 1.7 g/dL (1.6-3.3); Glucose 107 mg/dL (70-110); Iron 14 ug/dL (65-175); Non-African American GFR(CKD) 72.3 (60.0-200.0); Potassium 4.9 mmol/L (3.5-5.5); Sodium 132 mmol/L (135-145); Total Bilirubin 0.4 mg/dL (0.3-1.2); Total Iron Binding Capacity 380 ug/dL (228-460); Triglycerides <50.0 mg/dL (0.0-149.0)
[2020-04-25 16:38] LABS: Ferritin 20.4 ng/mL (22.0-322.0)
[2020-04-25 19:16] LABS: INR 0.94 (0.90-1.11); Partial Thromboplastin Time 29.3 sec (23.5-31.0); Prothrombin Time 10.3 sec (9.9-11.9)
[2020-04-25 20:41] LABS: Hemoglobin A1C 4.9 % (4.0-6.0)
== END | disposition home or self-care (01) ==
LOC: LABWHC1 09:48
PROVIDERS: ATTEND Specialist
DX: D50.9 Iron deficiency anemia, unspecified (principal); G31.84 Mild cognitive impairment of uncertain or unknown etiology; N52.9 Male erectile dysfunction, unspecified; R53.83 Other fatigue; G44.209 Tension-type headache, unspecified, not intractable; I10 Essential (primary) hypertension; E29.1 Testicular hypofunction; R73.01 Impaired fasting glucose; M19.90 Unspecified osteoarthritis, unspecified site; R00.2 Palpitations; F51.04 Psychophysiologic insomnia
CPT/HCPCS: 36415; 80053; 80061; 82728; 83036; 83090; 83525; 83540; 83550; 84439; 84443; 84466; 84481; 84482; 85025; 85610; 85730; 86141; 86376; 86800

== ENCOUNTER → 2020-07-04 | Outpatient (CLI) | payer MEDICARE ==
[2020-07-04 16:00] LABS: Basophils # (A) 0 X 10*3/uL (0.00-0.10); Basophils % (A) 0 %; Eosinophils # (A) 0 X 10*3/uL (0.04-0.35); Eosinophils % (A) 0 %; HGB 11.6 g/dL (13.0-17.0); Lymphocytes # (A) 0.75 X 10*3/uL (0.90-5.00); Lymphocytes % (A) 20.3 %; MCH 26.9 pg (27.0-32.0); MCHC 31.4 g/dL (32.0-37.0); MCV 85.6 fL (80.0-97.0); Monocytes # (A) 0.47 X 10*3/uL (0.20-1.00); Monocytes % (A) 12.7 %; Neutrophils # (A) 2.46 X 10*3/uL (1.80-7.70); Neutrophils % (A) 66.7 %; Platelet Count 206 X 10*3/uL (140-440); RBC 4.32 X 10*6/uL (4.40-5.60); RDW 17.6 % (11.5-14.5); WBC 3.69 X 10*3/uL (4.50-10.00)
[2020-07-04 18:50] LABS: Hemoglobin A1C 5.6 % (4.0-6.0)
[2020-07-04 19:49] LABS: T4, Free (Free Thyroxine) 1.3 ng/dL (0.80-1.80)
[2020-07-04 19:51] LABS: Ferritin 32.3 ng/mL (22.0-322.0)
[2020-07-04 20:17] LABS: African American GFR (CKD) 74.7 (60.0-200.0); Albumin 4.2 g/dL (3.80-4.90); Albumin/Globulin Ratio 1.91 (1.60-3.17); Anion Gap 10.3 mmol/L (4.00-12.00); BUN/Creat Ratio 28.18 Ratio (12.00-20.00); C Reactive Protein, High Sens 1.22 mg/L (0.000-3.000); Calcium 9.4 mg/dL (8.7-10.3); Carbon Dioxide 23.7 mmol/L (21.6-31.8); Chol/HDL Ratio 2.18; Globulin 2.2 g/dL (1.6-3.3); Non-African American GFR(CKD) 64.4 (60.0-200.0); PSA Annual Screen 3.5 ng/mL (0.0-4.0); Potassium 5.4 mmol/L (3.5-5.5); Total Bilirubin 0.5 mg/dL (0.2-1.2); Total Protein 6.4 g/dL (6.2-8.2)
[2020-07-04 20:49] LABS: Insulin Level 7.4 mIU/mL (3.0-25.0)
== END | disposition home or self-care (01) ==
LOC: LABWHC1 10:18
PROVIDERS: ATTEND Specialist
DX: D50.9 Iron deficiency anemia, unspecified (principal); G44.209 Tension-type headache, unspecified, not intractable; I10 Essential (primary) hypertension; E88.81 Metabolic syndrome and other insulin resistance; R00.2 Palpitations; F52.21 Male erectile disorder; R53.83 Other fatigue; G31.84 Mild cognitive impairment of uncertain or unknown etiology; F51.04 Psychophysiologic insomnia; M19.90 Unspecified osteoarthritis, unspecified site
CPT/HCPCS: 84439; 84481; 80061; 80053; 82728; 84443; 85025; 85384; 86141; 83090; 83525; 82306; 83036; 36415; G0103

== ENCOUNTER → 2020-09-28 | Outpatient (CLI) | payer MEDICARE ==
[2020-09-28 16:23] LABS: African American GFR (CKD) >90 (>60 ml/min/1.73 sqM); Blood Urea Nitrogen 23 mg/dL (9-20); Non-African American GFR(CKD) 89 (>60 ml/min/1.73 sqM)
--- NOTE | 2020-09-29 07:29 | CT ---
EXAMINATION TYPE: CT abdomen pelvis w con DATE OF EXAM: 09/28/2020 COMPARISON: CT lumbar spine June 02, 2018. HISTORY: Unilateral inguinal hernia, abdominal swelling/mass CT DLP: 865.50 mGycm, Automated Exposure Control for Dose Reduction was Utilized. CONTRAST: CT scan of the abdomen and pelvis is performed with oral and with IV Contrast, patient injected with 100 mL of Isovue 300. FINDINGS: LUNG BASES: Peripheral reticulation and fibrotic change identified bilaterally. LIVER/GB: Gallbladder is surgically absent. PANCREAS: No significant abnormality is seen. SPLEEN: No significant abnormality is seen. ADRENALS: There is stable in size 2.5 cm left adrenal mass. KIDNEYS: No significant abnormality is seen. BOWEL: Oral contrast does not reach level of distal ileum making evaluation distal bowel slightly sub optimal. Oroj-sw-gqhnddio diffuse colonic fecal prominence. Occasional colonic diverticula. No CT paola dence for acute diverticulitis. No suspicious small or large bowel dilatation. PROSTATE/SEMINAL VESICLES: Enlarged prostate consistent with BPH bulging on bladder base. LYMPH NODES: No greater than 1cm abdominal or pelvic lymph nodes are appreciated. OSSEOUS STRUCTURES: Postsurgical change from L3 through S1 levels redemonstrated. Stable severe grade 1 anterolisthesis of L5 on S1 with advanced disc space narrowing. Stable moderate to advanced disc s pace narrowing with endplate sclerosis at L2-L3 level. Stable moderate disc space narrowing with tio ficial disc material at L3-L4 level. Vacuum disc phenomenon L4-L5 level redemonstrated. Djdc-xw-oqzyo ate axial joint space loss of both hips with mild acetabular spurring. OTHER: Moderate calcified plaque of the aorta extends into branch vessels. No suspicious inguinal her lidia. No suspicious groin adenopathy. IMPRESSION: No suspicious mass or hernia defect. No suspicious adenopathy. Fairly moderate diffuse co lonic fecal stasis. No bowel obstruction.
== END | disposition home or self-care (01) ==
LOC: RADCTMAIN 15:41
PROVIDERS: ATTEND Family Medicine
DX: K40.90 Unilateral inguinal hernia, without obstruction or gangrene, not specified as recurrent (principal)
CPT/HCPCS: 82565; 84520; 74177; 36415; Q9967

== ENCOUNTER → 2020-11-06 | Outpatient (CLI) | payer MEDICARE ==
[2020-11-06 16:19] LABS: Basophils # (A) 0 X 10*3/uL (0.00-0.10); Basophils % (A) 0 %; Eosinophils # (A) 0 X 10*3/uL (0.04-0.35); Eosinophils % (A) 0 %; HGB 12.2 g/dL (13.0-17.0); Lymphocytes # (A) 0.54 X 10*3/uL (0.90-5.00); Lymphocytes % (A) 10.7 %; MCH 30.3 pg (27.0-32.0); MCV 91.8 fL (80.0-97.0); Mean Platelet Volume 11.1 fL (9.5-12.2); Monocytes # (A) 0.58 X 10*3/uL (0.20-1.00); Monocytes % (A) 11.5 %; Neutrophils % (A) 77.6 %; Platelet Count 188 X 10*3/uL (140-440); RBC 4.03 X 10*6/uL (4.40-5.60); RDW 12.7 % (11.5-14.5); WBC 5.03 X 10*3/uL (4.50-10.00)
[2020-11-06 17:05] LABS: Hemoglobin A1C 5.2 % (4.0-6.0)
[2020-11-06 18:29] LABS: Insulin Level 5.7 mIU/mL (3.0-25.0)
[2020-11-06 18:44] LABS: % Iron Saturation 11.18 (15.00-50.00); ALT 18 U/L (10-49); AST 20 U/L (14-35); African American GFR (CKD) 83.8 (60.0-200.0); Albumin/Globulin Ratio 2.42 (1.60-3.17); Alkaline Phosphatase 88 U/L (41-126); Calcium 9.5 mg/dL (8.7-10.3); Carbon Dioxide 25.1 mmol/L (21.6-31.8); Chloride 100 mmol/L (96-109); Chol/HDL Ratio 2.06; Cholesterol 144 mg/dL (0-200); Globulin 1.9 g/dL (1.6-3.3); Glucose 111 mg/dL (70-110); Iron 38 ug/dL (65-175); Non-African American GFR(CKD) 72.3 (60.0-200.0); Potassium 5.1 mmol/L (3.5-5.5); Sodium 132 mmol/L (135-145); Total Bilirubin 0.6 mg/dL (0.3-1.2); Total Iron Binding Capacity 340 ug/dL (228-460); Total Protein 6.5 g/dL (6.2-8.2); Triglycerides <50.0 mg/dL (0.0-149.0)
[2020-11-06 18:55] LABS: Ferritin 69.6 ng/mL (22.0-322.0)
[2020-11-09 11:35] LABS: Albumin, LC/MS/MS 4.2 g/dL (3.6-5.1); Testosterone, Free, LC/MS/MS 37.8 pg/mL (6.0-73.0)
== END | disposition home or self-care (01) ==
LOC: LABWHC1 09:25
PROVIDERS: ATTEND Specialist
DX: I10 Essential (primary) hypertension (principal); E29.1 Testicular hypofunction; D50.9 Iron deficiency anemia, unspecified; G31.84 Mild cognitive impairment of uncertain or unknown etiology; F52.21 Male erectile disorder; G44.209 Tension-type headache, unspecified, not intractable; R53.83 Other fatigue
CPT/HCPCS: 36415; 80053; 80061; 82040; 82306; 82642; 82728; 83036; 83090; 83525; 83540; 83550; 84270; 84403; 84439; 84443; 84481; 84482; 85025; 86141

== ENCOUNTER → 2021-02-07 | Outpatient (CLI) | payer MEDICARE ==
[2021-02-07 10:37] LABS: Basophils # (A) 0 X 10*3/uL (0.00-0.10); Basophils % (A) 0 %; Eosinophils # (A) 0 X 10*3/uL (0.04-0.35); Eosinophils % (A) 0 %; HCT 35.5 % (39.6-50.0); HGB 11.5 g/dL (13.0-17.0); Lymphocytes # (A) 0.77 X 10*3/uL (0.90-5.00); Lymphocytes % (A) 23.5 %; MCH 29.9 pg (27.0-32.0); MCHC 32.4 g/dL (32.0-37.0); MCV 92.4 fL (80.0-97.0); Mean Platelet Volume 10.3 fL (9.5-12.2); Monocytes # (A) 0.43 X 10*3/uL (0.20-1.00); Monocytes % (A) 13.1 %; Neutrophils # (A) 2.06 X 10*3/uL (1.80-7.70); Neutrophils % (A) 63.1 %; Platelet Count 208 X 10*3/uL (140-440); RBC 3.84 X 10*6/uL (4.40-5.60); RDW 14.1 % (11.5-14.5); WBC 3.27 X 10*3/uL (4.50-10.00)
[2021-02-07 16:35] LABS: African American GFR (CKD) 88.7 (60.0-200.0); Albumin 4.3 g/dL (3.8-4.9); Albumin/Globulin Ratio 2.04 (1.60-3.17); Anion Gap 10.6 mmol/L (10.00-18.00); BUN/Creat Ratio 25.05 Ratio (12.00-20.00); Blood Urea Nitrogen 23.9 mg/dL (9.0-27.0); Calcium 9.5 mg/dL (8.7-10.3); Carbon Dioxide 23.7 mmol/L (20.0-27.5); Globulin 2.1 g/dL (1.6-3.3); HDL Cholesterol 69.7 mg/dL (40.00-60.00); Non-African American GFR(CKD) 76.5 (60.0-200.0); Potassium 4.9 mmol/L (3.5-5.5); Prostate Specific Antigen 7.8 ng/mL (0.00-6.50); T4, Free (Free Thyroxine) 1.5 ng/dL (0.800-1.800); Total Bilirubin 0.3 mg/dL (0.30-1.20); Total Protein 6.4 g/dL (6.2-8.2); Triglycerides 38.8 mg/dL (0.00-149.00)
[2021-02-07 16:43] LABS: C Reactive Protein, High Sens 1.42 mg/L (0.000-3.000)
[2021-02-07 17:03] LABS: Chol/HDL Ratio 1.91 Ratio; LDL Cholesterol,Direct Reflex 60.9 mg/dL (0.00-129.00)
[2021-02-07 17:50] LABS: Insulin Level 3.9 mIU/mL (3.0-25.0)
== END | disposition home or self-care (01) ==
LOC: LABWHC1 07:42
PROVIDERS: ATTEND Specialist
DX: I10 Essential (primary) hypertension (principal); E29.1 Testicular hypofunction; M19.90 Unspecified osteoarthritis, unspecified site; G31.84 Mild cognitive impairment of uncertain or unknown etiology; G44.209 Tension-type headache, unspecified, not intractable; F52.21 Male erectile disorder; F51.04 Psychophysiologic insomnia; D50.9 Iron deficiency anemia, unspecified; R73.01 Impaired fasting glucose; R53.83 Other fatigue; R00.2 Palpitations
CPT/HCPCS: 36415; 80053; 80061; 82306; 82728; 83036; 83090; 83525; 83721; 84153; 84439; 84443; 84481; 85025; 86141

== ENCOUNTER → 2021-03-23 | Outpatient (CLI) | payer MEDICARE ==
[2021-03-23 14:34] LABS: Basophils # (A) 0 X 10*3/uL (0.00-0.10); Basophils % (A) 0 %; Eosinophils # (A) 0 X 10*3/uL (0.04-0.35); Eosinophils % (A) 0 %; HCT 38.5 % (39.6-50.0); HGB 12.1 g/dL (13.0-17.0); Immature Grans, Automated 0.3 %; Lymphocytes # (A) 0.97 X 10*3/uL (0.90-5.00); Lymphocytes % (A) 27.2 %; MCH 30.2 pg (27.0-32.0); MCHC 31.4 g/dL (32.0-37.0); Monocytes # (A) 0.51 X 10*3/uL (0.20-1.00); Monocytes % (A) 14.3 %; NRBC Per 100 WBC 0 /100 WBCS (0.0-0.0); Neutrophils # (A) 2.08 X 10*3/uL (1.80-7.70); Neutrophils % (A) 58.2 %; Platelet Count 200 X 10*3/uL (140-440); RBC 4.01 X 10*6/uL (4.40-5.60); RDW 13.7 % (11.5-14.5); WBC 3.57 X 10*3/uL (4.50-10.00)
== END | disposition home or self-care (01) ==
LOC: LABPAT 08:34
PROVIDERS: ATTEND Surgery
DX: Z01.812 Encounter for preprocedural laboratory examination (principal); K40.90 Unilateral inguinal hernia, without obstruction or gangrene, not specified as recurrent
CPT/HCPCS: 36415; 85025; 93005

== ENCOUNTER 2021-03-30 09:30 | Day surgery (SDC) | payer MEDICARE ==
[2021-03-27 10:43] VITALS: BMI 25.8
[~2021-03-30 09:30] MED LIST changes: +ACETAMINOPHEN TAB 500 MG TAB PO PRN; +DEXAMETHASONE SOD PHOSPHATE 4 MG/ML 1 ML VIAL IV ONE; +HEPARIN SODIUM,PORCINE/PF 5,000 UNIT/0.5 ML SYRINGE SQ PRN; -LACTATED RINGERS 1,000 ML IV SCH; -LIDOCAINE 1% (10MG/ML) FOR IV START INTRADERMA PRN; +MIDAZOLAM 2 MG/2 ML VIAL IV PRN; +ONDANSETRON 4 MG/2 ML VIAL IVP ONE
[2021-03-30 10:39] VITALS: RESP 16
[2021-03-30] MEDS: LACTATED RINGERS 1,000 ML IV SCH ×2 (10:44→17:50)
[2021-03-30 10:47] LABS: Glucose,Whole Blood 110 mg/dL (75-99)
--- NOTE | 2021-03-30 12:42 | P.GSHP ---
History of Present Illness H&P Date: 03/30/21 Chief Complaint: Right inguinal hernia 76-year-old male here today for elective repair right inguinal hernia. Patient has had complaints of a painful bulge there for some time. Thinks it may be increasing in size somewhat. No symptoms on the left hand side. 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, IBS, "prediabetic -insulin resistant", DVT right leg 2012, HX OF BLOODY DIARRHEA, heart murmer, leaky mitral valve, hx "low iron", hx kidney stones History of Any Multi-Drug Resistant Organisms: None Reported Past Surgical History: Back Surgery, Cholecystectomy, Heart Catheterization, Joint Replacement, Tonsillectomy Additional Past Surgical History / Comment(s): laminectomy x 2, rt knee replacement/later revision, corey cataracts removed, COLONOSCOPY Past Anesthesia/Blood Transfusion Reactions: No Reported Reaction Smoking Status: Former smoker - Past Family History Father Family Medical History: Cancer Mother Family Medical History: No Reported History Medications and Allergies Home Medications Medication Instructions Recorded Confirmed Type lisinopriL 40 mg PO DAILY 08/19/17 03/30/21 History L.acidoph,Paracasei, B.lactis 1 tab PO DAILY 04/06/20 03/30/21 History [Probiotic] Magnesium (Unknown Strength) 1 tab PO DAILY 04/06/20 03/30/21 History Ferrochel 1 tab PO DAILY 03/27/21 03/30/21 History Vitamin B Complex 1 each PO DAILY 03/27/21 03/30/21 History Vitamin B Injection 1 injection IJ Q2D 03/27/21 03/30/21 History Allergies Allergy/AdvReac Type Severity Reaction Status Date / Time vancomycin Allergy Rash/Hives Verified 03/30/21 10:23 Surgical - Exam Vital Signs Temp Pulse Resp BP Pulse Ox 97.7 F 96 16 164/84 98 03/30/21 10:32 03/30/21 10:32 03/30/21 10:32 03/30/21 10:32 03/30/21 10:32 Physical exam: General: Well-developed, well-nourished HEENT: Normocephalic, sclerae nonicteric Abdomen: Nontender, nondistended reducible small to moderate sized right inguinal hernia Extremities: No edema Neuro: Alert and oriented Results - Labs Abnormal Lab Results - Last 24 Hours (Table) 03/30/21 Range/Units 10:43 POC Glucose (mg/dL) 110 H (75-99) mg/dL Assessment and Plan (1) Inguinal hernia Narrative/Plan: 76-year-old male with reducible right inguinal hernia. We'll proceed with laparoscopic da Dannielle assisted repair right inguinal hernia with mesh, possible open, possible bilateral. Risks of bleeding, infection, recurrence, bladder and bowel injury, numbness, nerve injury, conversion to an open procedure were discussed with the patient. The patient understands and wishes to proceed. Current Visit: Yes Status: Acute Code(s): K40.90 - UNIL INGUINAL HERNIA, W/O OBST OR GANGR, NOT SPCF RECUR SNOMED Code(s): 813395548
[2021-03-30] MEDS ORDERED: GLYCOPYRROLATE 0.2 MG/ML 2 ML VIAL ONE (13:17)
[2021-03-30] MEDS ORDERED: LIDOCAINE 1% INJ 10MG/ML (20 ML MDV) ONE (13:17)
[2021-03-30] MEDS ORDERED: SUCCINYLCHOLINE CHLORIDE 100 MG/5 ML SYR IV ONE (13:17)
[2021-03-30] MEDS ORDERED: ROCURONIUM 10 MG/ML (5 ML VIAL) IV ONE (13:17)
[2021-03-30] MEDS ORDERED: PROPOFOL 10 MG/ML 20 ML VIAL IV ONE (13:17)
[2021-03-30] MEDS ORDERED: NEOSTIGMINE 1 MG/ML 10 ML VIAL ONE (13:17)
[2021-03-30] MEDS ORDERED: fentaNYL (PF) 50 MCG/ML 2 ML AMP ONE (13:17)
[2021-03-30] MEDS ORDERED: MIDAZOLAM 2 MG/2 ML VIAL ONE (13:17)
[2021-03-30] MEDS ORDERED: LACTATED RINGERS 1,000 ML IV ONE (13:45)
[2021-03-30] MEDS ORDERED: BUPIVACAIN-EPI 0.25%-1:200,000 30 ML VIAL SQ ONE ×2 (13:50)
[2021-03-30] MEDS ORDERED: TAMSULOSIN 0.4 MG CAP.ER.24H PO STA (15:21)
[2021-03-30] MEDS: HYDROmorphone 0.5 MG/0.5 ML SYRINGE IVP PRN ×2 (15:26→15:46)
[2021-03-30 15:34] VITALS: TEMP 98
--- NOTE | 2021-03-30 15:36 | P.OP ---
Date of Procedure: 03/30/21 Procedure(s) Performed: PREOPERATIVE DIAGNOSIS: Right inguinal hernia POSTOPERATIVE DIAGNOSIS: Large indirect right inguinal hernia PROCEDURE: Laparoscopic da Dannielle assisted repair right indirect inguinal hernia with mesh SURGEON: Dr. Pinzon ANESTHESIA: General OPERATIVE PROCEDURE DETAILS: Patient was placed in the operating table in the supine position. The patient was placed under general anesthesia. The abdomen was prepped and draped in usual sterile fashion. A small curvilinear supraumbilical incision was made. The fascia was retracted anteriorly with [place] forceps. The Veress needle was inserted. The saline drop test was normal. Insufflation took place to 15 mmHg. An 8 mm trocar was placed into the peritoneal cavity. 2 additional 8 mm trochars were placed in the right upper quadrant and left upper quadrant under visualization. The robotic arms were then brought in and docked into place. The fenestrated bipolar was used in the left arm and the laparoscopic gracie was utilized in the right arm. A 30 8 mm scope was used in the up position. The peritoneal cavity was inspected. The patient had a small amount of adhesions in the right lower quadrant that were divided using electrocautery. The patient had a large indirect hernia with some inflammatory changes at the internal inguinal ring. No hernia on the left was seen. The peritoneum was incised in a horizontal fashion cephalad to the internal inguinal ring. Following that careful dissection of the preperitoneal space took place. This took place using both electrocautery, sharp dissection but primarily blunt dissection. Visualization of the pubic tubercle and Oswald's ligament took place medially. Full dissection took place laterally as well. The hernia sac was fully dissected. Once we had adequate space the extra-large Bard 3-D mid mesh was advanced into the preperitoneal space and flattened out appropriately to cover all potential hernia sites. No sutures were used. The peritoneal defect was then closed using a absorbable 2-0 VLok suture. The hernia sac was incorporated into the peritoneal closure to help prevent future recurrence. The pneumoperitoneum was then evacuated. The skin of all 3 sites was closed using a 4-0 Monocryl stitch. Skin glue was then applied. TYPE OF MESH USED: Bard 3-D mid 5 x 7" LOCATION OF MESH: Preperitoneal FIXATION: None PREOPERATIVE DISCUSSION ON SMOKING CESSASTION: Yes PREOPERATIVE DISCUSSION ON MORBID OBESITY: Yes PREOPERATIVE DISCUSSION ON APPROPRIATE USE OF NARCOTIC USE: Yes DISPOSITION: Stable to recovery room
[2021-03-30 16:58] VITALS: BP 145/74; PULSE 94
[2021-03-30] MEDS ORDERED: ACETAMINOPHEN TAB 325 MG TAB PO SCH (18:00)
[2021-03-30] MEDS ORDERED: IBUPROFEN 600 MG TAB PO SCH (18:30)
== END 2021-03-30 20:20 | disposition home or self-care (01) ==
LOC: OR 09:30
PROVIDERS: ATTEND Surgery
DX: K40.90 Unilateral inguinal hernia, without obstruction or gangrene, not specified as recurrent (principal); J45.909 Unspecified asthma, uncomplicated; Z86.73 Personal history of transient ischemic attack (TIA), and cerebral infarction without residual deficits; Z86.718 Personal history of other venous thrombosis and embolism; I10 Essential (primary) hypertension; M19.90 Unspecified osteoarthritis, unspecified site; K58.9 Irritable bowel syndrome, unspecified; I69.354 Hemiplegia and hemiparesis following cerebral infarction affecting left non-dominant side; J44.9 Chronic obstructive pulmonary disease, unspecified; Z97.2 Presence of dental prosthetic device (complete) (partial); R73.03 Prediabetes; Z87.442 Personal history of urinary calculi; I38 Endocarditis, valve unspecified; Z90.49 Acquired absence of other specified parts of digestive tract; Z96.651 Presence of right artificial knee joint; Z98.42 Cataract extraction status, left eye; Z98.41 Cataract extraction status, right eye; Z98.890 Other specified postprocedural states; Z87.891 Personal history of nicotine dependence; Z80.9 Family history of malignant neoplasm, unspecified; Z79.899 Other long term (current) drug therapy; Z88.1 Allergy status to other antibiotic agents
CPT/HCPCS: 86900; 86901; 86850; 49650; C1781; J2250; J2710; J0690; J2001; J3010; J0330; J2704; J1170

== ENCOUNTER → 2021-05-23 | Outpatient (CLI) | payer MEDICARE ==
[2021-05-23 10:45] LABS: Basophils # (A) 0 X 10*3/uL (0.00-0.10); Basophils % (A) 0 %; Eosinophils # (A) 0 X 10*3/uL (0.04-0.35); Eosinophils % (A) 0 %; HCT 40.6 % (39.6-50.0); HGB 13.6 g/dL (13.0-17.0); Immature Grans, Automated 0.6 %; Lymphocytes # (A) 0.82 X 10*3/uL (0.90-5.00); Lymphocytes % (A) 26.4 %; MCH 30.4 pg (27.0-32.0); MCHC 33.5 g/dL (32.0-37.0); MCV 90.8 fL (80.0-97.0); Mean Platelet Volume 11.6 fL (9.5-12.2); Monocytes # (A) 0.39 X 10*3/uL (0.20-1.00); Monocytes % (A) 12.5 %; NRBC Per 100 WBC 0 /100 WBCS (0.0-0.0); Neutrophils # (A) 1.88 X 10*3/uL (1.80-7.70); Neutrophils % (A) 60.5 %; Platelet Count 201 X 10*3/uL (140-440); RBC 4.47 X 10*6/uL (4.40-5.60); WBC 3.11 X 10*3/uL (4.50-10.00)
[2021-05-23 11:15] LABS: % Iron Saturation 24.08 (15.00-50.00); ALT 16 U/L (10-49); AST 20 U/L (14-35); African American GFR (CKD) 83.4 (60.0-200.0); Albumin 4.4 g/dL (3.8-4.9); Albumin/Globulin Ratio 2.02 (1.60-3.17); Alkaline Phosphatase 75 U/L (41-126); BUN/Creat Ratio 21.64 Ratio (12.00-20.00); Blood Urea Nitrogen 21.6 mg/dL (9.0-27.0); Calcium 9.4 mg/dL (8.7-10.3); Carbon Dioxide 21.3 mmol/L (20.0-27.5); Chloride 98 mmol/L (96-109); Chol/HDL Ratio 2.22 Ratio; Globulin 2.2 g/dL (1.6-3.3); Glucose 101 mg/dL (70-110); Iron 80 ug/dL (65-175); LDL Cholesterol,Calculated 57.5 mg/dL (0.0-131.0); Non-African American GFR(CKD) 71.9 (60.0-200.0); Potassium 4.5 mmol/L (3.5-5.5); Sodium 132 mmol/L (135-145); Total Iron Binding Capacity 332 ug/dL (228-460); Total Protein 6.6 g/dL (6.2-8.2); VLDL Calculation 14.36 mg/dL (5.00-40.00)
== END | disposition home or self-care (01) ==
LOC: LABWHC1 08:00
PROVIDERS: ATTEND Specialist
DX: I10 Essential (primary) hypertension (principal); D50.9 Iron deficiency anemia, unspecified; G31.84 Mild cognitive impairment of uncertain or unknown etiology; R53.83 Other fatigue; G44.209 Tension-type headache, unspecified, not intractable; F52.21 Male erectile disorder; E88.81 Metabolic syndrome and other insulin resistance; F51.04 Psychophysiologic insomnia; M19.90 Unspecified osteoarthritis, unspecified site; R00.2 Palpitations
CPT/HCPCS: 84439; 84481; 80061; 80053; 82728; 83540; 83550; 84443; 84630; 85025; 86141; 83090; 83525; 82306; 36415; G0103

== ENCOUNTER → 2021-08-02 | Outpatient (CLI) | payer MEDICARE ==
--- NOTE | 2021-08-03 07:12 | US ---
EXAMINATION TYPE: US kidneys/renal and bladder DATE OF EXAM: 08/02/2021 COMPARISON: NONE CLINICAL HISTORY: N18.30 CHRONIC KIDNEY DISEASE, STAGE 3 UNSPECIFIED. CKD 3 EXAM MEASUREMENTS: Right Kidney: 11.1 x 5.4 x 4.0 cm Left Kidney: 9.0 x 4.8 x 4.7 cm Prominent prostate visualized 6.2 cm. Right Kidney: Cystic area lower pole .8 x .9 x .9 cm. Left Kidney: No hydronephrosis or masses seen Bladder: wnl Bilateral Jets seen: Yes There is no evidence for hydronephrosis at this point in time. No nephrolithiasis is seen. No solid masses are identified. The urinary bladder is anechoic. Bilateral ureteral jets are seen. IMPRESSION: Simple cyst lower pole right kidney. Enlarged prostate gland. Diminutive left kidney.
== END | disposition home or self-care (01) ==
LOC: RADUSWWP 15:22
PROVIDERS: ATTEND Internal Medicine
DX: N18.30 Chronic kidney disease, stage 3 unspecified (principal); N28.1 Cyst of kidney, acquired; N40.0 Benign prostatic hyperplasia without lower urinary tract symptoms
CPT/HCPCS: 76770

== ENCOUNTER → 2021-09-19 | Outpatient (CLI) | payer MEDICARE ==
[2021-09-19 12:47] LABS: Insulin Level 5.1 mIU/mL (3.0-25.0)
[2021-09-19 14:37] LABS: Basophils # (A) 0 X 10*3/uL (0.00-0.10); Basophils % (A) 0 %; Eosinophils # (A) 0 X 10*3/uL (0.04-0.35); Eosinophils % (A) 0 %; HCT 38.2 % (39.6-50.0); HGB 12.7 g/dL (13.0-17.0); Immature Grans, Automated 0.3 %; Lymphocytes % (A) 19.4 %; MCH 29.9 pg (27.0-32.0); MCHC 33.2 g/dL (32.0-37.0); MCV 89.9 fL (80.0-97.0); Monocytes # (A) 0.47 X 10*3/uL (0.20-1.00); NRBC Per 100 WBC 0 /100 WBCS (0.0-0.0); Neutrophils # (A) 2.43 X 10*3/uL (1.80-7.70); Neutrophils % (A) 67.3 %; Platelet Count 185 X 10*3/uL (140-440); RBC 4.25 X 10*6/uL (4.40-5.60); RDW 13.1 % (11.5-14.5); WBC 3.61 X 10*3/uL (4.50-10.00)
[2021-09-19 15:20] LABS: Estradiol 25.3 pg/mL
[2021-09-19 16:03] LABS: ALT 19 U/L (10-49); AST 21 U/L (14-35); African American GFR (CKD) 94.5 (60.0-200.0); Albumin 4.4 g/dL (3.8-4.9); Alkaline Phosphatase 74 U/L (41-126); BUN/Creat Ratio 23.89 Ratio (12.00-20.00); Blood Urea Nitrogen 21.5 mg/dL (9.0-27.0); Calcium 9.3 mg/dL (8.7-10.3); Carbon Dioxide 21.6 mmol/L (20.0-27.5); Chloride 100 mmol/L (96-109); Chol/HDL Ratio 2.31 Ratio; Glucose 107 mg/dL (70-110); Non-African American GFR(CKD) 81.5 (60.0-200.0); Potassium 4.7 mmol/L (3.5-5.5); Sodium 133 mmol/L (135-145); Total Protein 6.4 g/dL (6.2-8.2); VLDL Calculation 12.22 mg/dL (5.00-40.00)
== END | disposition home or self-care (01) ==
LOC: LABWHC1 08:20
DX: I10 Essential (primary) hypertension (principal); D50.9 Iron deficiency anemia, unspecified; G31.84 Mild cognitive impairment of uncertain or unknown etiology; F52.21 Male erectile disorder; R53.83 Other fatigue; G44.209 Tension-type headache, unspecified, not intractable; F51.04 Psychophysiologic insomnia; E88.81 Metabolic syndrome and other insulin resistance; M19.90 Unspecified osteoarthritis, unspecified site; R00.2 Palpitations
CPT/HCPCS: 36415; 80053; 80061; 82306; 82642; 82670; 82728; 83036; 83090; 83525; 84153; 84402; 84403; 84439; 84481; 85025; 86141; 86376

== ENCOUNTER → 2022-03-14 | Outpatient (CLI) | payer MEDICARE ==
[2022-03-14 14:31] LABS: Basophils # (A) 0 X 10*3/uL (0.00-0.10); Basophils % (A) 0 %; Eosinophils # (A) 0 X 10*3/uL (0.04-0.35); Eosinophils % (A) 0 %; HCT 37.7 % (39.6-50.0); HGB 12.4 g/dL (13.0-17.0); Immature Grans, Automated 0.3 %; Lymphocytes # (A) 0.78 X 10*3/uL (0.90-5.00); Lymphocytes % (A) 21.6 %; MCH 30.5 pg (27.0-32.0); MCHC 32.9 g/dL (32.0-37.0); MCV 92.6 fL (80.0-97.0); Mean Platelet Volume 10.8 fL (9.5-12.2); Monocytes # (A) 0.44 X 10*3/uL (0.20-1.00); Monocytes % (A) 12.2 %; NRBC Per 100 WBC 0 /100 WBCS (0.0-0.0); Neutrophils # (A) 2.38 X 10*3/uL (1.80-7.70); Neutrophils % (A) 65.9 %; Platelet Count 224 X 10*3/uL (140-440); RBC 4.07 X 10*6/uL (4.40-5.60); RDW 13.1 % (11.5-14.5); WBC 3.61 X 10*3/uL (4.50-10.00)
[2022-03-14 14:56] LABS: % Iron Saturation 20.59 (15.00-50.00); ALT 21 U/L (10-49); AST 20 U/L (14-35); African American GFR (CKD) 84.2 (60.0-200.0); Albumin 4.3 g/dL (3.8-4.9); Alkaline Phosphatase 82 U/L (41-126); BUN/Creat Ratio 19.39 Ratio (12.00-20.00); Blood Urea Nitrogen 19.2 mg/dL (9.0-27.0); Calcium 9.5 mg/dL (8.7-10.3); Carbon Dioxide 25.2 mmol/L (20.0-27.5); Chloride 100 mmol/L (96-109); Chol/HDL Ratio 2.35 Ratio; Globulin 2.1 g/dL (1.6-3.3); Glucose 109 mg/dL (70-110); Iron 67 ug/dL (65-175); LDL Cholesterol,Calculated 68.1 mg/dL (0.0-131.0); Non-African American GFR(CKD) 72.7 (60.0-200.0); Sodium 134 mmol/L (135-145); Total Iron Binding Capacity 323 ug/dL (228-460); Total Protein 6.4 g/dL (6.2-8.2); VLDL Calculation 15.22 mg/dL (5.00-40.00)
[2022-03-14 15:31] LABS: Estradiol 22.1 pg/mL
[2022-03-14 15:55] LABS: Homocysteine 8.86 umol/L (4.00-14.00); Thyroid Peroxidase Antibodies <9.0 U/mL (0.0-33.0)
[2022-03-14 16:12] LABS: Vitamin B12 >3600.0 pg/mL (200.0-944.0)
[2022-03-14 18:45] LABS: Insulin Level 7.7 mIU/mL (3.0-25.0)
[2022-03-15 12:12] LABS: Zinc, Serum 62 ug/dL (60-130)
== END | disposition home or self-care (01) ==
LOC: LABWHC1 08:52
PROVIDERS: ATTEND Family Medicine
DX: I10 Essential (primary) hypertension (principal); D50.9 Iron deficiency anemia, unspecified; G31.84 Mild cognitive impairment of uncertain or unknown etiology; G44.209 Tension-type headache, unspecified, not intractable; F52.21 Male erectile disorder; E29.1 Testicular hypofunction; M19.90 Unspecified osteoarthritis, unspecified site; R00.2 Palpitations; R53.83 Other fatigue
CPT/HCPCS: 36415; 80053; 80061; 82306; 82607; 82642; 82670; 82728; 83036; 83090; 83525; 83540; 83550; 83735; 84153; 84402; 84403; 84439; 84443; 84481; 84630; 85025; 86141; 86376; 86800

== ENCOUNTER → 2022-09-06 | Outpatient (CLI) | payer MEDICARE ==
[2022-09-06 13:39] LABS: Basophils # (A) 0 X 10*3/uL (0.00-0.10); Basophils % (A) 0 %; Eosinophils # (A) 0 X 10*3/uL (0.04-0.35); Eosinophils % (A) 0 %; HCT 37.8 % (39.6-50.0); HGB 12.6 d/dL (13.0-17.0); Lymphocytes # (A) 0.71 X 10*3/uL (0.90-5.00); Lymphocytes % (A) 20.5 %; MCHC 33.3 d/dL (32.0-37.0); MCV 93.1 FL (80.0-97.0); Mean Platelet Volume 11.6 FL (9.5-12.2); Monocytes # (A) 0.41 X 10*3/uL (0.20-1.00); Monocytes % (A) 11.8 %; NRBC Per 100 WBC 0 X 10*3/uL (0.00-0.01); Neutrophils # (A) 2.34 X 10*3/uL (1.80-7.70); Neutrophils % (A) 67.4 %; Platelet Count 170 X 10*3/uL (140-440); RBC 4.06 X 10*6/uL (4.40-5.60); RDW 13.3 % (11.5-14.5); WBC 3.47 X 10*3/uL (4.50-10.00)
[2022-09-06 15:04] LABS: Homocysteine 9.87 UMOL/L (4.00-14.00)
[2022-09-06 15:20] LABS: ALT 30 U/L (10-49); AST 27 U/L (14-35); Albumin 4.6 d/dL (3.8-4.9); Albumin/Globulin Ratio 2.56 Ratio (1.60-3.17); Alkaline Phosphatase 75 U/L (41-126); Blood Urea Nitrogen 22.5 mg/dL (9.0-27.0); Calcium 9.6 mg/dL (8.7-10.3); Carbon Dioxide 23.9 mmol/L (21.6-31.8); Chloride 102 mmol/L (96-109); Chol/HDL Ratio 2.82 Ratio; Globulin 1.8 d/dL (1.6-3.3); Glucose 109 mg/dL (70-110); LDL Cholesterol,Calculated 79.2 mg/dL (0.0-131.0); Magnesium 1.8 mg/dL (1.5-2.4); Potassium 4.6 mmol/L (3.5-5.5); Sodium 136 mmol/L (135-145); T4, Free (Free Thyroxine) 1.52 ng/dL (0.80-1.80); Total Bilirubin 0.5 mg/dL (0.3-1.2); Total Protein 6.4 d/dL (6.2-8.2); VLDL Calculation 13.68 mg/dL (5.00-40.00)
[2022-09-06 15:21] LABS: Vitamin B12 >1800.0 pg/mL (200.0-944.0)
[2022-09-06 17:35] LABS: Insulin Level 6.7 mIU/mL (3.0-25.0)
== END | disposition home or self-care (01) ==
LOC: LABWHC1 09:32
PROVIDERS: ATTEND Family Medicine
DX: I10 Essential (primary) hypertension (principal); D50.9 Iron deficiency anemia, unspecified; G31.84 Mild cognitive impairment of uncertain or unknown etiology; F52.21 Male erectile disorder; G44.209 Tension-type headache, unspecified, not intractable; E29.1 Testicular hypofunction; F51.04 Psychophysiologic insomnia; M19.90 Unspecified osteoarthritis, unspecified site; R53.83 Other fatigue; R00.2 Palpitations; R73.01 Impaired fasting glucose
CPT/HCPCS: 36415; 80053; 80061; 82306; 82607; 83036; 83090; 83525; 83735; 84153; 84439; 84443; 84481; 84630; 85025; 86141

== ENCOUNTER → 2022-10-11 | Outpatient (CLI) | payer MEDICARE ==
--- NOTE | 2022-10-11 20:58 | CT ---
EXAMINATION TYPE: CT chest wo con CT DLP: 325.7 mGycm, Automated exposure control for dose reduction was used. DATE OF EXAM: 10/11/2022 4:25 PM COMPARISON: None CLINICAL INDICATION:Male, 77 years old with history of R06.02 SOB; PHH, cough, SOB TECHNIQUE: Multiple axial images were obtained through the chest without IV contrast. Lack of IV or o ral contrast limits evaluation of solid and hollow organ viscera. . Coronal and sagittal reformats re viewed. FINDINGS: LUNGS/ PLEURA: No pleural effusion, pneumothorax, or focal consolidation. Diffuse bilateral subpleura l reticular opacities. Mild centrilobular emphysematous changes. No honeycombing. No groundglass opac ities. Scattered pulmonary nodules with examples including a left lower lobe 4.8 mm nodule (series 4, image 36), lingular 3.8 mm pulmonary nodule (series 4, image 34), right midlung 2.1 mm pulmonary nod ule (series 4, image 20), Medial right lower lobe 9 mm pulmonary nodule (series 4, image 34). Scatte red calcified granulomas. AIRWAY: Patent and unremarkable.. HEART: Cardiomegaly. No pericardial effusion. Severe coronary artery calcifications.. Mitral annulus calcifications. MEDIASTINUM: No gross evidence of adenopathy. VASCULATURE: No aortic aneurysm. Atherosclerotic described calcification of the aorta and its branch es. MUSCULOSKELETAL: No acute osseous abnormalities. No aggressive osseous lesion. Partial visualization of lumbar fusion hardware. Mild multilevel degenerative disc disease. SOFT TISSUES/LYMPH NODES: Unremarkable. LOWER NECK: Macrocalcification within the right thyroid lobe. UPPER ABDOMEN: Left adrenal 3.0 cm benign lipid rich adrenal adenoma with a Hounsfield unit of -1. IMPRESSION: 1. Scattered pulmonary nodules with largest in the right lower lobe measuring up to 9 mm. Further monika luation with PET/CT is recommended. 2. Mild emphysematous and pulmonary fibrotic changes. 3. Cardiomegaly severe coronary tear calcifications. 4. Left adrenal benign lipid rich adenoma.
== END | disposition home or self-care (01) ==
LOC: RADCTMAIN 16:08
PROVIDERS: ATTEND Family Medicine
DX: J84.10 Pulmonary fibrosis, unspecified (principal); J43.2 Centrilobular emphysema; R91.8 Other nonspecific abnormal finding of lung field; I25.10 Atherosclerotic heart disease of native coronary artery without angina pectoris; I51.7 Cardiomegaly; D35.02 Benign neoplasm of left adrenal gland
CPT/HCPCS: 71250

== ENCOUNTER → 2022-11-15 | Outpatient (CLI) | payer MEDICARE ==
--- NOTE | 2022-11-16 10:04 | PE ---
EXAMINATION TYPE: PET CT fusion skull to thigh DATE OF EXAM: 11/15/2022 CLINICAL INDICATION:Male, 77 years old with history of R91.8; TECHNIQUE: Following the intravenous administration of 11.0 mCi of F-18 FDG, whole body images are performed from the skull base to the midthigh. Images are reviewed on the computer in the coronal, a xial, and sagittal planes. Reconstructed rotating images are created on independent workstation and reviewed on the computer. A non-contrast CT is performed in conjunction with the PET scan. Glucose level 97 mg/dL CT DLP: 408.84 mGycm, Automated exposure control for dose reduction was used. COMPARISON: CT 10/11/2022 PET/CT None, FINDINGS: Mediastinal SUV mean is 1.4. Hepatic parenchyma SUV mean is 2.23. SKULL BASE AND NECK: No suspicious radiotracer activity. CHEST, MEDIASTINUM, AND HILAR REGION: Scattered parenchymal changes are seen throughout the lungs with centrilobular and paraseptal emphyse ma with scattered prominent peripheral nodular like changes in reticulation. Right lower lung 9 mm pu lmonary nodule seen on prior max SUV 1.1 Left axillary lymph nodes with increased metabolic activity max SUV 1.6 measuring up to 8 mm in short axis. ABDOMEN AND PELVIS: Left adrenal nodule measuring up to 2.8 cm and 5 Hounsfield units compatible with lipid rich adrenal adenoma max SUV 3.4. MUSCULOSKELETAL STRUCTURES: No suspicious radiotracer activity. OTHER CT: Bilaterally aphakia. Coronary artery calcifications are present. Atherosclerosis at the car otid bifurcations. The heart is moderately enlarged for size. Mitral valve annular calcifications. Po st surgical changes to the spine. Scattered colonic diverticula. Prostatomegaly measuring up to 6.6 c m in transverse dimension. IMPRESSION: 1. Scattered parenchymal changes and nodular densities throughout the lungs without suspicious FDG a ctivity above background levels. Continued surveillance with CT imaging recommended. 2. Indeterminate left adrenal lesion with increased metabolic activity. Correlate with serum markers . Consider CT adrenal mass with IV contrast for confirmation of washout .
== END | disposition home or self-care (01) ==
LOC: RADPETMAIN 07:16
PROVIDERS: ATTEND Family Medicine
DX: J98.4 Other disorders of lung (principal); R91.8 Other nonspecific abnormal finding of lung field
CPT/HCPCS: 78815; A9552

== ENCOUNTER 2023-01-27 11:20 | Inpatient (IN) | payer MEDICARE ==
--- NOTE | 2023-01-27 12:03 | ED ---
General Adult HPI - General Chief complaint: Chest Pain Stated complaint: swollen feet chest pain rapid weight gain Time Seen by Provider: 01/27/23 11:45 Source: patient, RN notes reviewed, old records reviewed Mode of arrival: ambulatory Limitations: no limitations - History of Present Illness Initial comments: This a 77-year-old male who presents emergency Department complaining that in the last 6 days he has had swelling to his legs and complains of fatigue as well as chest pain throughout his whole chest sometimes radiating up into his neck. Patient states he has a mitral valve issue but has never had any heart attacks. Patient states she's never been told he has congestive heart. Her pulmonary edema. Patient states since she's been having swellings a little bit of shortness of breath. Patient denies any fever chills per patient denies abdominal pain patient denies any back pain. Patient denies lightheadedness or dizziness. Patient states she's been 14 pounds in 6 days - Related Data Home Medications Medication Instructions Recorded Confirmed lisinopriL 40 mg PO DAILY 08/19/17 03/30/21 L.acidoph,Paracasei, B.lactis 1 tab PO DAILY 04/06/20 03/30/21 [Probiotic] Magnesium (Unknown Strength) 1 tab PO DAILY 04/06/20 03/30/21 Ferrochel 1 tab PO DAILY 03/27/21 03/30/21 Vitamin B Complex 1 each PO DAILY 03/27/21 03/30/21 Vitamin B Injection 1 injection IJ Q2D 03/27/21 03/30/21 Previous Rx's Medication Instructions Recorded oxyCODONE HCL [OxyIR] 5 mg PO Q6H PRN 3 Days #6 tab 03/30/21 Allergies Allergy/AdvReac Type Severity Reaction Status Date / Time vancomycin Allergy Rash/Hives Verified 01/27/23 11:33 Review of Systems ROS Statement: Those systems with pertinent positive or pertinent negative responses have been documented in the HPI. ROS Other: All systems not noted in ROS Statement are negative. 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, IBS, "prediabetic -insulin resistant", DVT right leg 2012, LOW HGB UP TO 9.9 FROM 7.1 , HX OF BLOODY DIARRHEA, HX + MRSA NASAL COLONIZATION History of Any Multi-Drug Resistant Organisms: None Reported Past Surgical History: Back Surgery, Cholecystectomy, Heart Catheterization, Joint Replacement, Tonsillectomy Additional Past Surgical History / Comment(s): laminectomy x 2, rt knee replacement, corey cataracts removed, COLONOSCOPY Past Anesthesia/Blood Transfusion Reactions: No Reported Reaction Past Psychological History: Bipolar Smoking Status: Former smoker Past Alcohol Use History: None Reported Past Drug Use History: None Reported - Past Family History Father Family Medical History: Cancer Mother Family Medical History: No Reported History General Exam - General Exam Comments Initial Comments: GENERAL: Patient is well-developed and well-nourished. Patient is nontoxic and well- hydrated and is in mild distress. ENT: Neck is soft and supple. No significant lymphadenopathy is noted. Oropharynx is clear. Moist mucous membranes. Neck has full range of motion without eliciting any pain. EYES: The sclera were anicteric and conjunctiva were pink and moist. Extraocular movements were intact and pupils were equal round and reactive to light. Eyelids were unremarkable. PULMONARY: Unlabored respirations. Good breath sounds bilaterally. No audible rales rhonchi or wheezing was noted. CARDIOVASCULAR: There is a regular rate and rhythm without any murmurs gallops or rubs. ABDOMEN: Soft and nontender with normal bowel sounds. SKIN: Skin is clear with no lesions or rashes and otherwise unremarkable. NEUROLOGIC: Patient is alert and oriented x3. Cranial nerves II through XII are grossly intact. Motor and sensory are also intact. Normal speech, volume and content. Symmetrical smile. MUSCULOSKELETAL: Normal extremities with adequate strength and full range of motion. 2+ edema LYMPHATICS: No significant lymphadenopathy is noted PSYCHIATRIC: Normal psychiatric evaluation. Limitations: no limitations Course Vital Signs 01/27/23 01/27/23 11:30 13:49 Temperature 98 F Pulse Rate 84 87 Respiratory 18 20 Rate Blood Pressure 158/79 152/86 O2 Sat by Pulse 96 95 Oximetry Medical Decision Making - Medical Decision Making EKG shows her apartment so. EKG shows sinus rhythm at 84 bpm NE interval 160 QRS is 90 QT interval 359 QTC is 400. Patient's EKG shows no significant ST segment elevation. Was pt. sent in by a medical professional or institution (, PA, SEAT TRIMMER, urgent care, hospital, or senior living...) When possible be specific @ -No Did you speak to anyone other than the patient for history (EMS, parent, family, police, friend...)? What history was obtained from this source @ -No Did you review nursing and triage notes (agree or disagree)? Why? @ -I reviewed and agree with nursing and triage notes Were old charts reviewed (outside hosp., previous admission, EMS record, old EKG, old radiological studies, urgent care reports/EKG's, senior living records)? Report findings @ -I reviewed prior charts from prior laboratory this patient Differential Diagnosis (chest pain, altered mental status, abdominal pain women, abdominal pain men, vaginal bleeding, weakness, fever, dyspnea, syncope, headache, dizziness, GI bleed, back pain, seizure, CVA, palpatations, mental health, musculoskeletal)? @ -Differential Dyspnea: Coronary syndrome, arrhythmia, tamponade, asthma, COPD, pulmonary embolism, pneumonia, pneumothorax, pulmonary effusion, anaphylaxis, diabetic ketoacidosis, flailed chest, pulmonary contusion, diaphragmatic rupture, anemia, neuromuscular, this is not meant to be an all-inclusive list. EKG interpreted by me (3pts min.). @ -As above X-rays interpreted y me (1pt min.). @ -Chest x-ray shows acute pulmonary edema CT interpreted by me (1pt min.). @ -None done U/S interpreted by me (1pt. min.). @ -None done What testing was considered but not performed or refused? (CT, X-rays, U/S, labs)? Why? @ -None What meds were considered but not given or refused? Why? @ -None Did you discuss the management of the patient with other professionals (professionals i.e. , PA, SEAT TRIMMER, lab, RT, psych nurse, social work program coordinator, food chemist, teacher, communications officer, upper caser)? Give summary @ -I spoke with Dr. Mccall he agreed to admit the patient admitted the patient Was smoking cessation discussed for >3mins.? @ -No Was critical care preformed (if so, how long)? @ -35 minutes Were there social determinants of health that impacted care today? How? (Homelessness, low income, unemployed, alcoholism, drug addiction, transportation, low edu. Level, literacy, decrease access to med. care, halfway, rehab)? @ -No Was there de-escalation of care discussed even if they declined (Discuss DNR or withdrawal of care, Hospice)? DNR status @ -No What co-morbidities impacted this encounter? (DM, HTN, Smoking, COPD, CAD, Cancer, CVA, ARF, Chemo, Hep., AIDS, mental health diagnosis, sleep apnea, morbid obesity)? @ -None Was patient admitted / discharged? Hospital course, mention meds given and route, prescriptions, significant lab abnormalities, going to OR and other pertinent info. @ -Patient received Lasix in the emergency department for the acute pulmonary edema. Patient's troponin was mildly elevated I started the patient heparin. I spoke with Dr. Mccall I admitted the patient wrote admitting orders and I consulted cardiology Undiagnosed new problem with uncertain prognosis? @ -No Drug Therapy requiring intensive monitoring for toxicity (Heparin, Nitro, Insulin, Cardizem)? @ -No Were any procedures done? @ -No Diagnosis/symptom? @ -Acute pulmonary edema Acute, or Chronic, or Acute on Chronic? @ -Acute Uncomplicated (without systemic symptoms) or Complicated (systemic symptoms)? @ -Complicated Side effects of treatment? @ -No Exacerbation, Progression, or Severe Exacerbation? @ -No Poses a threat to life or bodily function? How? (Chest pain, USA, MN, pneumonia, PE, COPD, DKA, ARF, appy, cholecystitis, CVA, Diverticulitis, Homicidal, S uicidal, threat to staff... and all critical care pts) @ -Yes this could lead to hypoxia and end organ dysfunction Diagnosis/symptom? @ -Non-STEMI Acute, or Chronic, or Acute on Chronic? @ -Acute Uncomplicated (without systemic symptoms) or Complicated (systemic symptoms)? @ -Complicated Side effects of treatment? @ -none Exacerbation, Progression, or Severe Exacerbation] @ -no Poses a threat to life or bodily function? @ -Yes this could lead to an MN and poor perfusion and end organ dysfunction - Lab Data Result diagrams: 01/27/23 12:00 01/27/23 12:00 Lab Results 01/27/23 01/27/23 01/27/23 Range/Units 12:00 12:00 12:00 WBC 6.6 (3.8-10.6) k/uL RBC 3.60 L (4.30-5.90) m/uL Hgb 11.3 L (13.0-17.5) gm/dL Hct 34.2 L (39.0-53.0) % MCV 95.0 (80.0-100.0) fL MCH 31.4 (25.0-35.0) pg MCHC 33.0 (31.0-37.0) g/dL RDW 13.9 (11.5-15.5) % Plt Count 199 (150-450) k/uL MPV 8.3 Neutrophils % 83 % Lymphocytes % 8 % Monocytes % 7 % Eosinophils % 0 % Basophils % 0 % Neutrophils # 5.5 (1.3-7.7) k/uL Lymphocytes # 0.5 L (1.0-4.8) k/uL Monocytes # 0.5 (0-1.0) k/uL Eosinophils # 0.0 (0-0.7) k/uL Basophils # 0.0 (0-0.2) k/uL PT 10.6 (10.0-12.5) sec INR 1.0 (<1.2) APTT 25.7 (22.0-30.0) sec Sodium 135 L (137-145) mmol/L Potassium 4.0 (3.5-5.1) mmol/L Chloride 102 (98-107) mmol/L Carbon Dioxide 25 (22-30) mmol/L Anion Gap 8 mmol/L BUN 21 H (9-20) mg/dL Creatinine 1.01 (0.66-1.25) mg/dL Est GFR (CKD-EPI)AfAm 82 (>60 ml/min/1.73 sqM) Est GFR (CKD-EPI)NonAf 71 (>60 ml/min/1.73 sqM) Glucose 105 H (74-99) mg/dL Calcium 9.0 (8.4-10.2) mg/dL Magnesium 2.0 (1.6-2.3) mg/dL Total Bilirubin 1.1 (0.2-1.3) mg/dL AST 52 (17-59) U/L ALT 84 H (4-49) U/L Alkaline Phosphatase 140 H (38-126) U/L Troponin I (0.000-0.034) ng/mL NT-Pro-B Natriuret Pep 48322 pg/mL Total Protein 6.1 L (6.3-8.2) g/dL Albumin 3.5 (3.5-5.0) g/dL 01/27/23 Range/Units 12:00 WBC (3.8-10.6) k/uL RBC (4.30-5.90) m/uL Hgb (13.0-17.5) gm/dL Hct (39.0-53.0) % MCV (80.0-100.0) fL MCH (25.0-35.0) pg MCHC (31.0-37.0) g/dL RDW (11.5-15.5) % Plt Count (150-450) k/uL MPV Neutrophils % % Lymphocytes % % Monocytes % % Eosinophils % % Basophils % % Neutrophils # (1.3-7.7) k/uL Lymphocytes # (1.0-4.8) k/uL Monocytes # (0-1.0) k/uL Eosinophils # (0-0.7) k/uL Basophils # (0-0.2) k/uL PT (10.0-12.5) sec INR (<1.2) APTT (22.0-30.0) sec Sodium (137-145) mmol/L Potassium (3.5-5.1) mmol/L Chloride (98-107) mmol/L Carbon Dioxide (22-30) mmol/L Anion Gap mmol/L BUN (9-20) mg/dL Creatinine (0.66-1.25) mg/dL Est GFR (CKD-EPI)AfAm (>60 ml/min/1.73 sqM) Est GFR (CKD-EPI)NonAf (>60 ml/min/1.73 sqM) Glucose (74-99) mg/dL Calcium (8.4-10.2) mg/dL Magnesium (1.6-2.3) mg/dL Total Bilirubin (0.2-1.3) mg/dL AST (17-59) U/L ALT (4-49) U/L Alkaline Phosphatase (38-126) U/L Troponin I 0.364 H* (0.000-0.034) ng/mL NT-Pro-B Natriuret Pep pg/mL Total Protein (6.3-8.2) g/dL Albumin (3.5-5.0) g/dL Critical Care Time Critical Care Time: Yes Total Critical Care Time: 35 Disposition Clinical Impression: Acute non-ST elevation myocardial infarction (NSTEMI), Acute pulmonary edema Disposition: ADMITTED IP TO THIS HOSP Referrals: Brisa Brush MD [Primary Care Provider] - 1-2 days Time of Disposition: 14:13
[2023-01-27 12:12] LABS: Basophils % (A) 0 %; Eosinophils % (A) 0 %; HCT 34.2 % (39.0-53.0); HGB 11.3 gm/dL (13.0-17.5); Lymphocytes # (A) 0.5 k/uL (1.0-4.8); Lymphocytes % (A) 8 %; MCH 31.4 pg (25.0-35.0); Mean Platelet Volume 8.3; Monocytes # (A) 0.5 k/uL (0-1.0); Monocytes % (A) 7 %; Neutrophils # (A) 5.5 k/uL (1.3-7.7); Neutrophils % (A) 83 %; Platelet Count 199 k/uL (150-450); RDW 13.9 % (11.5-15.5); WBC 6.6 k/uL (3.8-10.6)
[2023-01-27 12:23] LABS: Partial Thromboplastin Time 25.7 sec (22.0-30.0); Prothrombin Time 10.6 sec (10.0-12.5)
[2023-01-27 12:33] LABS: ALT 84 U/L (4-49); AST 52 U/L (17-59); African American GFR (CKD) 82 (>60 ml/min/1.73 sqM); Albumin 3.5 g/dL (3.5-5.0); Alkaline Phosphatase 140 U/L (38-126); Anion Gap 8 mmol/L; Blood Urea Nitrogen 21 mg/dL (9-20); Carbon Dioxide 25 mmol/L (22-30); Chloride 102 mmol/L (98-107); Glucose 105 mg/dL (74-99); Non-African American GFR(CKD) 71 (>60 ml/min/1.73 sqM); Sodium 135 mmol/L (137-145); Total Bilirubin 1.1 mg/dL (0.2-1.3); Total Protein 6.1 g/dL (6.3-8.2)
[2023-01-27 12:39] LABS: NT-Pro-B-Type Natriuretic Pept 11600 pg/mL
[2023-01-27] MEDS ORDERED: FUROSEMIDE 10 MG/ML 4 ML VIAL IV STA (13:25)
--- NOTE | 2023-01-27 13:55 | XR ---
EXAMINATION TYPE: XR chest 2V DATE OF EXAM: 01/27/2023 COMPARISON: 12/02/2017 INDICATION: Chest pain TECHNIQUE: Frontal and lateral views of the chest are obtained. FINDINGS: The heart size is mildly prominent. The pulmonary vasculature is prominent. Diffuse increased lung markings are bilateral. There is partial silhouetting the left diaphragm.. IMPRESSION: 1. Clinical correlation recommended for congestive heart failure. Follow-up is recommended
[2023-01-27] MEDS ORDERED: HEPARIN SODIUM 1,000 UN/ML (10ML VL) IV ONE (14:03)
[2023-01-27] MEDS ORDERED: NITROGLYCERIN SL TABS 0.4 MG TAB SUBLINGUAL PRN (14:13)
[2023-01-27] MEDS ORDERED: ASPIRIN 81 MG PO STA (14:18)
[2023-01-27] MEDS: HEPARIN SOD,PORK IN 0.45% NACL 25,000 UNIT in 0.45% NACL 1 250ML.BAG IV SCH (14:44)
[2023-01-27] MEDS: NITROGLYCERIN OINT 1 INCH/GM PACKET TOPICAL SCH ×2 (17:39→23:59)
[2023-01-27] MEDS: FUROSEMIDE 10 MG/ML 4 ML VIAL IV SCH ×2 (17:39→23:59)
[2023-01-27] MEDS: ACETAMINOPHEN TAB 325 MG TAB PO PRN (20:49)
[2023-01-27] MEDS ORDERED: ALBUTEROL NEBULIZED 2.5 MG/3 ML INHALATION PRN (23:22)
--- NOTE | 2023-01-27 23:38 | P.HPIM ---
History of Present Illness H&P Date: 01/27/23 Chief Complaint: Leg swelling and shortness of breath Patient is a 77-year-old male with a known history of hypertension, history of CVA/TIA with minimal left-sided weakness, rheumatoid arthritis, bipolar disorder and prior history of smoking presents to ER with complaints of worsening shortness of breath and leg swelling for the past 6 days. Patient was also complaining of generalized weakness and fatigue and chest congestion and discomfort sometimes radiating to his neck on the left side. Patient states that he has history of mitral valve issues but no prior history of CHF. Patient otherwise denies any complaints of fever or chills. Cough without any sputum production. No nausea vomiting or abdominal pain or diarrhea. Denies any dizziness or lightheadedness. Chest x-ray on admission showed clinical correlation recommended for CHF. EKG showed sinus rhythm and ST-T abnormalities in V3 and V4. Laboratory data showed WBC 6.6 hemoglobin 11.3 and platelets 199 Sodium 135 potassium 4.0 chloride 102 bicarb is 25 BUN 21 and creatinine 1.01 and blood sugar 105 AST 52 ALT 84 and alk phos 140 Troponin 0.364, 0.391 and 0.357 proBNP [id number] Review of Systems Constitutional: Patient denies any fever or chills . no Generalized weakness. Abdomen: Patient denied any nausea or vomiting or abd. pain Cardiovascular: Patient denies due to complaint of chest discomfort and short of breath. No palpitations. Worsening leg swelling. Respiratory: patient does have congested cough. no sputum production. Positive for shortness of breath Neurologic: Patient denied any numbness or tingling or headache. Musculoskeletal: Patient denies any complaints of joint swelling or deformity. Skin: Negative Psychiatric: Negative Endocrine: No heat or cold intolerance. No recent weight gain. Genitourinary: No dysuria or hematuria. 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, IBS, "prediabetic -insulin resistant", DVT right leg 2012, LOW HGB UP TO 9.9 FROM 7.1 , HX OF BLOODY DIARRHEA, HX + MRSA NASAL COLONIZATION History of Any Multi-Drug Resistant Organisms: None Reported Past Surgical History: Back Surgery, Cholecystectomy, Heart Catheterization, Joint Replacement, Tonsillectomy Additional Past Surgical History / Comment(s): laminectomy x 2, rt knee replacement, corey cataracts removed, COLONOSCOPY Past Anesthesia/Blood Transfusion Reactions: No Reported Reaction Past Psychological History: Bipolar Smoking Status: Former smoker Past Alcohol Use History: None Reported Additional Past Alcohol Use History / Comment(s): quit smoking 1987, smoked from age 12 to age 42, 2 PPD Past Drug Use History: None Reported - Past Family History Father Family Medical History: Cancer Mother Family Medical History: No Reported History Medications and Allergies Home Medications Medication Instructions Recorded Confirmed Type lisinopriL 40 mg PO DAILY 08/19/17 01/27/23 History Albuterol Inhaler [Ventolin Hfa 1 - 2 puff INHALATION RT-Q6H PRN 01/27/23 01/27/23 History Inhaler] Fluticasone/Umeclidin/Vilanter 1 puff INHALATION RT-DAILY 01/27/23 01/27/23 History [Trelegy Ellipta 100-62.5-25] Metoprolol Tartrate [Lopressor] 25 mg PO BID 01/27/23 01/27/23 History Allergies Allergy/AdvReac Type Severity Reaction Status Date / Time vancomycin Allergy Rash/Hives Verified 01/27/23 15:02 Physical Exam Vitals: Vital Signs Temp Pulse Pulse Resp BP BP Pulse Ox 01/27/23 20:00 98.3 F 103 H 16 119/67 95 01/27/23 16:20 91 20 158/78 94 L 01/27/23 13:49 87 20 152/86 95 01/27/23 11:30 98 F 84 18 158/79 96 Intake and Output 01/27/23 01/27/23 01/27/23 06:59 14:59 22:59 Intake Total 69.279 Balance 69.279 Intake: Intake, IV Titration 69.279 Amount Heparin Sod,Pork in 0.45% 69.279 NaCl 25,000 unit In 0.45 % NaCl 1 250ml.bag @ 12 UNITS/KG/HR 9.362 mls/hr IV .Q24H [facility] Rx#: [id number] Other: Voiding Method Urinal # Voids 1 Weight 78.018 kg 78.018 kg PHYSICAL EXAMINATION: Patient is lying in the bed comfortably, no acute distress, awake alert and oriented.. HEENT: Normocephalic. Neck is supple. Pupils reactive. Nostrils clear. Oral cavity is moist. Neck reveals no JVD, carotid bruits, or thyromegaly. CHEST EXAMINATION: Trachea is central. Symmetrical expansion. Bibasilar diminished sounds. No wheezing or rhonchi. Nonlabored breathing.. CARDIAC: Normal S1, S2 with no gallops. No murmurs ABDOMEN: Soft. Bowel sounds present. Nontender. No organomegaly. No abdominal bruits. Extremities: Bilateral lower extremity 3+ pitting edema. No clubbing or cyanosis Neurologically awake, alert, oriented x3 with well-coordinated movements. No gross focal deficits noted Skin: No rash or skin lesions. Psychiatric: Coperative. Nonsuicidal, Musculoskeletal: No joint swelling or deformity. Normal range of motion. Results CBC & Chem 7: 01/27/23 12:00 01/27/23 12:00 Labs: Abnormal Lab Results - Last 24 Hours (Table) 01/27/23 01/27/23 01/27/23 Range/Units 12:00 12:00 12:00 RBC 3.60 L (4.30-5.90) m/uL Hgb 11.3 L (13.0-17.5) gm/dL Hct 34.2 L (39.0-53.0) % Lymphocytes # 0.5 L (1.0-4.8) k/uL APTT (22.0-30.0) sec Sodium 135 L (137-145) mmol/L BUN 21 H (9-20) mg/dL Glucose 105 H (74-99) mg/dL ALT 84 H (4-49) U/L Alkaline Phosphatase 140 H (38-126) U/L Troponin I 0.364 H* (0.000-0.034) ng/mL Total Protein 6.1 L (6.3-8.2) g/dL 01/27/23 01/27/23 01/27/23 Range/Units 15:04 17:51 20:37 RBC (4.30-5.90) m/uL Hgb (13.0-17.5) gm/dL Hct (39.0-53.0) % Lymphocytes # (1.0-4.8) k/uL APTT 30.3 H (22.0-30.0) sec Sodium (137-145) mmol/L BUN (9-20) mg/dL Glucose (74-99) mg/dL ALT (4-49) U/L Alkaline Phosphatase (38-126) U/L Troponin I 0.391 H* 0.357 H* (0.000-0.034) ng/mL Total Protein (6.3-8.2) g/dL Thrombosis Risk Factor Assmnt - DVT/VTE Prophylaxis DVT/VTE Prophylaxis: Pharmacologic Prophylaxis ordered Assessment and Plan Assessment: Acute non-ST elevated DE with elevated troponin level Acute CHF. EF not known. Valvular heart disease Hypertension uncontrolled on admission History of CVA with mild left-sided residual weakness Prediabetic History of DVT right lower extremity in 2012 Rheumatoid arthritis Osteoarthritis COPD not in exacerbation Bipolar disorder Prior history of smoking quit in 1987 DVT prophylaxis patient is already on heparin drip Plan: Patient will be continued on telemetry. Trend troponins. Started on heparin drip and cardiology was consulted. Continue with diuresis with IV Lasix 40 mg every 8 hourly. Continue with metoprolol, aspirin. Ordered fasting lipid panel. Continue home medications including breathing treatments and follow-up closely. Prognosis is guarded. Time with Patient: Greater than 30
[2023-01-28 04:49] LABS: Basophils % (A) 0 %; Eosinophils % (A) 0 %; HCT 31.5 % (39.0-53.0); HGB 10.5 gm/dL (13.0-17.5); Lymphocytes # (A) 0.9 k/uL (1.0-4.8); Lymphocytes % (A) 20 %; MCH 31.2 pg (25.0-35.0); MCHC 33.4 g/dL (31.0-37.0); MCV 93.3 fL (80.0-100.0); Mean Platelet Volume 8.9; Monocytes # (A) 0.4 k/uL (0-1.0); Monocytes % (A) 8 %; Neutrophils % (A) 67 %; Platelet Count 180 k/uL (150-450); RBC 3.38 m/uL (4.30-5.90); WBC 4.5 k/uL (3.8-10.6)
[2023-01-28 05:21] LABS: African American GFR (CKD) 68 (>60 ml/min/1.73 sqM); Anion Gap 8 mmol/L; Blood Urea Nitrogen 24 mg/dL (9-20); Calcium 8.5 mg/dL (8.4-10.2); Carbon Dioxide 32 mmol/L (22-30); Chloride 97 mmol/L (98-107); Glucose 114 mg/dL (74-99); Non-African American GFR(CKD) 59 (>60 ml/min/1.73 sqM); Potassium 3.3 mmol/L (3.5-5.1); Sodium 137 mmol/L (137-145)
[2023-01-28] MEDS: NITROGLYCERIN OINT 1 INCH/GM PACKET TOPICAL SCH ×3 (06:01→18:42)
[2023-01-28] MEDS ORDERED: Potassium Replacement Protocol 1 EACH MISC MISCELLANE PRN (06:49)
--- NOTE | 2023-01-28 07:32 | CA ---
Transthoracic Echo Report Name: Nithin Eubanks Age: 77 Gender: M : 1945 Exam Date: 01/27/2023 16:10 Exam Location: [place] [facility] Ht (in): 66 Wt (lb): 172 Ordering Physician: Gigi Villalba MD Attending/Referring Phys: Senior Electrical Estimator Chidi Serrano Procedure CPT: Indications: acute pulmonary edema Cardiac Hx: Technical Quality: Fair Contrast 1: Total Dose (mL): Contrast 2: Total Dose (mL): MEASUREMENTS (Male / Female) Normal Values 2D ECHO LV Diastolic Diameter PLAX 5.4 cm 4.2 - 5.9 / 3.9 - 5.3 cm LV Systolic Diameter PLAX 3.6 cm IVS Diastolic Thickness 0.9 cm 0.6 - 1.0 / 0.6 - 0.9 cm LVPW Diastolic Thickness 1.2 cm 0.6 - 1.0 / 0.6 - 0.9 cm LV Relative Wall Thickness 0.4 RV Internal Dim ED PLAX 3.7 cm LVOT Diameter 2.1 cm Aortic Root Diameter 3.6 cm LA Systolic Diameter LX 4.4 cm 3.0 - 4.0 / 2.7 - 3.8 cm LV Diastolic Volume MOD BP 62.7 cm??? 67 - 155 / 56 - 104 cm??? LV Systolic Volume MOD BP 29.6 cm??? - / 19 - 49 cm??? LV Ejection Fraction MOD BP 52.8 % >= 55 % LV Cardiac Index MOD BP 1753.2 cm???/min???m??? LV Diastolic Volume MOD 4C 69.2 cm??? LV Systolic Volume MOD 4C 34.7 cm??? LV Ejection Fraction MOD 4C 49.9 % LV Cardiac Index MOD 4C 1827.8 cm???/min???m??? LV Diastolic Length 4C 7.3 cm LV Systolic Length 4C 6.6 cm LV Diastolic Volume MOD 2C 54.6 cm??? LV Systolic Volume MOD 2C 24.4 cm??? LV Ejection Fraction MOD 2C 55.3 % LV Cardiac Index MOD 2C 1600.7 cm???/min???m??? LV Diastolic Length 2C 6.9 cm LV Systolic Length 2C 6.4 cm LA Volume 137.9 cm??? - / 22 - 52 cm??? LA Volume Index 71.6 cm???/m??? 16 - 28 cm???/m??? Ascending Aorta Diameter 3.3 cm DOPPLER AV Peak Velocity 139.3 cm/s AV Peak Gradient 7.8 mmHg AV Mean Velocity 94.3 cm/s AV Mean Gradient 4.2 mmHg AV Velocity Time Integral 28.5 cm LVOT Peak Velocity 112.4 cm/s LVOT Peak Gradient 5.1 mmHg LVOT Velocity Time Integral 20.6 cm LVOT Stroke Volume 73.4 cm??? LVOT Stroke Volume Index 39.1 ml/m??? LVOT Cardiac Index 3891.2 cm???/min???m??? AV Area Cont Eq vti 2.6 cm??? AV Area Cont Eq pk 2.9 cm??? MV Peak Velocity 170.6 cm/s MV Peak Gradient 11.6 mmHg MV Mean Velocity 102.5 cm/s MV Mean Gradient 5.1 mmHg MV Velocity Time Integral 43.9 cm MR Peak Velocity 577.7 cm/s MR Peak Gradient 133.5 mmHg Mitral E Point Velocity 158.6 cm/s Mitral A Point Velocity 142.3 cm/s Mitral E to A Ratio 1.1 MV Deceleration Time 201.6 ms MV E' Velocity 10.6 cm/s Mitral E to MV E' Ratio 15.0 TR Peak Velocity 366.6 cm/s TR Peak Gradient 53.8 mmHg Right Ventricular Systolic Press 58.8 mmHg PV Peak Velocity 90.1 cm/s PV Peak Gradient 3.2 mmHg FINDINGS Left Ventricle Normal LV size and wall thickness. Left ventricular ejection fraction is estimated at 50-55 %. Right Ventricle Normal right ventricular size. RVSP= 59mmHg. Right Atrium Normal right atrial size. Left Atrium Mildly increased left atrial diameter. Severely increased left atrial volume. Moderately increased left atrial area. LA volume index= 73ml/m2 Mitral Valve Moderate calcification of the mitral annulus. severe MR. Aortic Valve Trileaflet aortic valve. Mild AV calcification. Trace AI. Tricuspid Valve Structurally normal tricuspid valve. Mild to moderate TR. Pulmonic Valve Pulmonic valve not well visualized. Mild to moderate PI. Pericardium Normal pericardium. Aorta Normal size aortic root and proximal ascending aorta. CONCLUSIONS 1. Left ventricular systolic function borderline normal 2. Severe eccentric mitral regurgitation 3. Mild to moderate tricuspid regurgitation with severe pulmonary hypertension Previewed by: Dr. Carroll Warner MD (Electronically Signed) Final Date: 28 January 2023 07:31
[2023-01-28] MEDS: IPRATROPIUM 0.5 MG/2.5 ML NEBU INHALATION SCH ×4 (08:36→20:11)
[2023-01-28] MEDS: SYMBICORT 80-4.5 MCG INHALER INHALATION SCH ×2 (08:36→20:11)
[2023-01-28 09:00] LABS: Chol/HDL Ratio 2.32 Ratio; LDL Cholesterol,Calculated 45.4 mg/dL (0.0-131.0); VLDL Calculation 12.12 mg/dL (5.00-40.00)
[2023-01-28] MEDS ORDERED: ASPIRIN 325 MG TAB PO SCH (09:00)
[2023-01-28] MEDS: FUROSEMIDE 10 MG/ML 4 ML VIAL IV SCH (09:04)
[2023-01-28] MEDS: ISOSORBIDE MONONITRATE ER 30 MG TAB.ER.24H PO SCH (09:05)
[2023-01-28] MEDS: POTASSIUM CHLORIDE ER 20 MEQ TAB.ER PO SCH ×2 (09:05→10:39)
[2023-01-28] MEDS: METOPROLOL TARTRATE 25 MG TAB PO SCH ×2 (09:05→19:42)
[2023-01-28] MEDS: POTASSIUM CHLORIDE ER 10 MEQ TAB.ER.PRT PO SCH (09:05)
--- NOTE | 2023-01-28 11:18 | P.CRDCN ---
History of Present Illness Consult date: 01/28/23 Consult reason: non-Q-wave [place] (Acute pulmonary edema) History of present illness: History of present illness: This is a 77 year old male patient of Dr. 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 We have been asked to evaluate the patient for non-ST elevated myocardial infarction and pulmonary edema. Patient presented to the emergency center complaining of fatigue, chest pain overall his chest radiating into his neck and left arm. He also has some lower extremity edema with weight gain. Patient was started on IV Lasix 40 mg and heparin drip. EKG sinus rhythm with mild ST changes Chest x-ray: Clinical correlation recommended for heart failure. WBC 4.5, hemoglobin 10.5, platelet count 180. Sodium 137, potassium 3.3, ch loride 97, CO2 32, BUN 24 creatinine 1.17. Triglycerides 60, cholesterol 101, LDL 45, HDL 43. Troponins is 0.364, 0.391, 0.357. Echocardiogram reveals EF of 50-55%, severe eccentric mitral regurgitation. [id number] tricuspid regurgitation with severe pulmonary hypertension. Home cardiac medications: Lisinopril 40 mg daily, Lopressor 25 mg twice daily. Catheterization performed 2018 for abnormal stress test showing inferior lateral ischemia and moderate mitral regurgitation on echocardiogram. Significant lesion found involving the OM branch and also PDA of the circumflex and there is diffuse disease with calcification of the rest. Preserved LV function. Mild mitral regurgitation. Plan was for maximizing medical therapy. Lexiscan stress test performed 11/15/2021 in the office revealed normal myocardial perfusion imaging. No evidence of any stress-induced ischemia. Normal left ventricular systolic function.. Review Of Systems: At the time of my exam: CONSTITUTIONAL: Denies fever or chills. CARDIOVASCULAR: Denies chest pain, reports shortness of breath, no orthopnea, PND or palpitations. + LE edema RESPIRATORY: + cough, nonproductive. + Dyspnea on exertion GASTROINTESTINAL: Denies abdominal pain, diarrhea, constipation, nausea or vomiting. MUSCULOSKELETAL: Denies myalgias. NEUROLOGIC: Denies numbness, tingling or weakness. ENDOCRINE: Denies fatigue, + weight change, polydipsia or polyurina. GENITOURINARY: Denies burning, hematuria or urgency with micturation. HEMATOLOGIC: Denies history of anemia or bleeding. Physical examination: Gen: This is a 77 year old male patient resting in bed appears to be comfortable, no acute respiratory distress VS: reviewed HEENT: Head is atraumatic, normocephalic. Pupils equal, round. Sclerae is anicteric. NECK: Supple. No JVD. LUNGS: Diminished breath sounds bilaterally. No wheezes or rhonchi. No intercostal retractions. HEART: Regular rate and rhythm. Systolic murmur. ABDOMEN: Soft No tenderness. EXTREMITIES: 2+ pedal edema. No calf tenderness. NEUROLOGICAL: Patient is awake, alert and oriented x3. Assessment: Non-ST elevated myocardial infarction Acute exacerbation of diastolic heart failure Severe mitral regurgitation Hypertension Dyslipidemia Coronary artery disease on previous cardiac catheterization as above, on medical management Plan: Continue patient on Lasix 40 mg IV daily and transitioned to oral tomorrow Continue patient on heparin drip Add Imdur 30 mg daily Continue metoprolol tartrate 25 mg twice daily Add potassium 10 mEq daily Monitor I&O, daily weights, electrolytes and renal function Plan to optimize respiratory status prior to cardiac catheterization. Make patient nothing by mouth after midnight on Friday for cardiac catheterization on with Dr. Graves Further recommendations to follow based upon clinical course Thank you kindly for this consultation. Nurse practitioner note has been reviewed, I agree with documented findings and plan of care. Patient was seen and examined. 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, IBS, "prediabetic -insulin resistant", DVT right leg 2012, LOW HGB UP TO 9.9 FROM 7.1 , HX OF BLOODY DIARRHEA, HX + MRSA NASAL COLONIZATION History of Any Multi-Drug Resistant Organisms: None Reported Past Surgical History: Back Surgery, Cholecystectomy, Heart Catheterization, Joint Replacement, Tonsillectomy Additional Past Surgical History / Comment(s): laminectomy x 2, rt knee replacement, corey cataracts removed, COLONOSCOPY Past Anesthesia/Blood Transfusion Reactions: No Reported Reaction Past Psychological History: Bipolar Smoking Status: Former smoker Past Alcohol Use History: None Reported Additional Past Alcohol Use History / Comment(s): quit smoking 1987, smoked from age 12 to age 42, 2 PPD Past Drug Use History: None Reported - Past Family History Father Family Medical History: Cancer Mother Family Medical History: No Reported History Medications and Allergies Home Medications Medication Instructions Recorded Confirmed Type lisinopriL 40 mg PO DAILY 08/19/17 01/27/23 History Albuterol Inhaler [Ventolin Hfa 1 - 2 puff INHALATION RT-Q6H PRN 01/27/23 01/27/23 History Inhaler] Fluticasone/Umeclidin/Vilanter 1 puff INHALATION RT-DAILY 01/27/23 01/27/23 History [Trelegy Ellipta 100-62.5-25] Metoprolol Tartrate [Lopressor] 25 mg PO BID 01/27/23 01/27/23 History Allergies Allergy/AdvReac Type Severity Reaction Status Date / Time vancomycin Allergy Rash/Hives Verified 01/27/23 15:02 Physical Exam Vitals: Vital Signs Temp Pulse Pulse Resp BP BP Pulse Ox 01/28/23 08:37 97 01/28/23 03:23 85 16 144/78 98 01/28/23 00:00 87 18 127/55 96 01/27/23 20:00 98.3 F 103 H 16 119/67 95 01/27/23 16:20 91 20 158/78 94 L 01/27/23 13:49 87 20 152/86 95 01/27/23 11:30 98 F 84 18 158/79 96 Intake and Output 01/27/23 01/28/23 01/28/23 22:59 06:59 14:59 Intake Total 69.279 102.401 Output Total 2800 Balance 69.279 -2697.599 Intake: Intake, IV Titration 69.279 102.401 Amount Heparin Sod,Pork in 0.45% 69.279 102.401 NaCl 25,000 unit In 0.45 % NaCl 1 250ml.bag @ 12 UNITS/KG/HR 9.362 mls/hr IV .Q24H [facility] Rx#: [id number] Output: Urine 2800 Other: Voiding Method Urinal Urinal # Voids 1 Weight 78.018 kg 74.6 kg Results 01/28/23 04:33 01/28/23 04:33 Cardiac Enzymes 12/18/23 12/18/23 12/18/23 Range/Units 12:00 12:00 15:04 AST 52 (17-59) U/L Troponin I 0.364 H* 0.391 H* (0.000-0.034) ng/mL 01/27/23 Range/Units 17:51 AST (17-59) U/L Troponin I 0.357 H* (0.000-0.034) ng/mL Coagulation 01/27/23 01/27/23 01/28/23 Range/Units 12:00 20:37 04:33 PT 10.6 (10.0-12.5) sec APTT 25.7 30.3 H 37.7 H (22.0-30.0) sec CBC 01/27/23 01/28/23 Range/Units 12:00 04:33 WBC 6.6 4.5 (3.8-10.6) k/uL RBC 3.60 L 3.38 L (4.30-5.90) m/uL Hgb 11.3 L 10.5 L (13.0-17.5) gm/dL Hct 34.2 L 31.5 L (39.0-53.0) % Plt Count 199 180 (150-450) k/uL Comprehensive Metabolic Panel 01/27/23 01/28/23 Range/Units 12:00 04:33 Sodium 135 L 137 (137-145) mmol/L Potassium 4.0 3.3 L (3.5-5.1) mmol/L Chloride 102 97 L (98-107) mmol/L Carbon Dioxide 25 32 H (22-30) mmol/L BUN 21 H 24 H (9-20) mg/dL Creatinine 1.01 1.17 (0.66-1.25) mg/dL Glucose 105 H 114 H (74-99) mg/dL Calcium 9.0 8.5 (8.4-10.2) mg/dL AST 52 (17-59) U/L ALT 84 H (4-49) U/L Alkaline Phosphatase 140 H (38-126) U/L Total Protein 6.1 L (6.3-8.2) g/dL Albumin 3.5 (3.5-5.0) g/dL Current Medications Generic Name Dose Route Start Last Admin Trade Name Freq PRN Reason Stop Dose Admin Acetaminophen 650 mg 01/27/23 20:30 01/27/23 20:49 Acetaminophen Tab 325 Mg Tab PO 650 mg Q6HR PRN Administration Fever and/ or Pain Albuterol Sulfate 2.5 mg 01/27/23 23:22 Albuterol Nebulized 2.5 Mg/3 Ml INHALATION RT-Q6H PRN Shortness Of Breath Aspirin 325 mg 01/28/23 09:00 Aspirin 325 Mg Tab PO DAILY [facility] Budesonide/Formoterol Fumarate 2 puff 01/28/23 08:00 01/28/23 08:36 Symbicort 80-4.5 Mcg Inhaler INHALATION 2 puff RT-BID [facility] Administration Furosemide 40 mg 01/27/23 16:00 01/27/23 23:59 Furosemide 10 Mg/Ml 4 Ml Vial IV 40 mg Q8HR [facility] Administration Heparin Sodium/Sodium Chloride 250 mls @ 9.362 mls/hr 01/27/23 14:15 01/28/23 06:53 25,000 unit/ Sodium Chloride IV 17 units/kg/hr .Q24H [facility] 13.263 mls/hr Titration Protocol 12 UNITS/KG/HR Ipratropium [place] 0.5 mg 01/28/23 08:00 01/28/23 08:36 Ipratropium 0.5 Mg/2.5 Ml Nebu INHALATION 0.5 mg RT-QID [facility] Administration Metoprolol Tartrate 25 mg 01/28/23 09:00 Metoprolol Tartrate 25 Mg Tab PO BID [facility] Miscellaneous Information 1 each 01/28/23 06:49 Potassium Replacement Protocol 1 Each Misc MISCELLANE DAILY PRN Per Protocol Protocol Nitroglycerin 0.4 mg 01/27/23 14:13 Nitroglycerin Sl Tabs 0.4 Mg Tab SUBLINGUAL Q5M PRN Chest Pain Nitroglycerin 1 inch 01/27/23 18:00 01/28/23 06:01 Nitroglycerin Oint 1 Inch/Gm Packet TOPICAL 1 inch Q6HR [facility] Administration Intake and Output 01/27/23 01/28/23 01/28/23 22:59 06:59 14:59 Intake Total 69.279 102.401 Output Total 2800 Balance 69.279 -2697.599 Intake: Intake, IV Titration 69.279 102.401 Amount Heparin Sod,Pork in 0.45% 69.279 102.401 NaCl 25,000 unit In 0.45 % NaCl 1 250ml.bag @ 12 UNITS/KG/HR 9.362 mls/hr IV .Q24H [facility] Rx#: [id number] Output: Urine 2800 Other: Voiding Method Urinal Urinal # Voids 1 Weight 78.018 kg 74.6 kg 01/28/23 04:33 01/28/23 04:33
[2023-01-28] MEDS: HEPARIN SOD,PORK IN 0.45% NACL 25,000 UNIT in 0.45% NACL 1 250ML.BAG IV SCH (13:57)
[2023-01-28] MEDS ORDERED: FUROSEMIDE 40 MG TAB PO ONE (14:00)
[2023-01-29] MEDS: NITROGLYCERIN OINT 1 INCH/GM PACKET TOPICAL SCH ×4 (00:26→17:13)
[2023-01-29 03:49] LABS: Basophils % (A) 0 %; Eosinophils % (A) 0 %; HGB 10.2 gm/dL (13.0-17.5); Lymphocytes # (A) 0.9 k/uL (1.0-4.8); Lymphocytes % (A) 22 %; MCH 30.9 pg (25.0-35.0); MCHC 32.8 g/dL (31.0-37.0); MCV 94.4 fL (80.0-100.0); Mean Platelet Volume 8.7; Monocytes # (A) 0.3 k/uL (0-1.0); Monocytes % (A) 7 %; Neutrophils # (A) 2.9 k/uL (1.3-7.7); Neutrophils % (A) 68 %; Platelet Count 206 k/uL (150-450); RBC 3.28 m/uL (4.30-5.90); RDW 13.7 % (11.5-15.5); WBC 4.2 k/uL (3.8-10.6)
[2023-01-29 04:04] LABS: AST 29 U/L (17-59); African American GFR (CKD) 62 (>60 ml/min/1.73 sqM); Albumin 3.1 g/dL (3.5-5.0); Blood Urea Nitrogen 31 mg/dL (9-20); Calcium 8.9 mg/dL (8.4-10.2); Carbon Dioxide 31 mmol/L (22-30); Chloride 97 mmol/L (98-107); Glucose 125 mg/dL (74-99); Non-African American GFR(CKD) 53 (>60 ml/min/1.73 sqM); Total Bilirubin 0.6 mg/dL (0.2-1.3); Total Protein 5.7 g/dL (6.3-8.2)
[2023-01-29 04:32] LABS: ALT 50 U/L (4-49); Alkaline Phosphatase 131 U/L (38-126); Anion Gap 6 mmol/L; Potassium 3.3 mmol/L (3.5-5.1); Sodium 134 mmol/L (137-145)
[2023-01-29] MEDS: FUROSEMIDE 40 MG TAB PO SCH (08:47)
[2023-01-29] MEDS: METOPROLOL TARTRATE 25 MG TAB PO SCH ×2 (08:47→19:55)
[2023-01-29] MEDS: POTASSIUM CHLORIDE ER 20 MEQ TAB.ER PO SCH ×2 (08:47→10:04)
[2023-01-29] MEDS: ISOSORBIDE MONONITRATE ER 30 MG TAB.ER.24H PO SCH (08:47)
[2023-01-29] MEDS: POTASSIUM CHLORIDE ER 10 MEQ TAB.ER.PRT PO SCH (08:47)
[2023-01-29] MEDS: ACETAMINOPHEN TAB 325 MG TAB PO PRN (08:48)
[2023-01-29] MEDS: ASPIRIN 81 MG PO SCH (08:48)
[2023-01-29] MEDS ORDERED: FUROSEMIDE 40 MG TAB PO SCH (09:00)
[2023-01-29] MEDS: IPRATROPIUM 0.5 MG/2.5 ML NEBU INHALATION SCH ×4 (09:10→20:52)
[2023-01-29] MEDS: SYMBICORT 80-4.5 MCG INHALER INHALATION SCH ×2 (09:10→20:52)
[2023-01-29] MEDS ORDERED: NITROGLYCERIN SL TABS 0.4 MG TAB SUBLINGUAL PRN (10:11)
[2023-01-29] MEDS ORDERED: ALPRAZolam 0.5 MG TAB PO PRN (10:11)
[2023-01-29] MEDS ORDERED: ALPRAZolam 0.25 MG TAB PO PRN (10:11)
--- NOTE | 2023-01-29 11:19 | P.PN ---
Subjective Progress Note Date: 01/29/23 Consult date: 01/28/23 Consult reason: non-Q-wave [place] (Acute pulmonary edema) History of present illness: History of present illness: This is a 77 year old male patient of Dr. Graves with past medical history of valvular heart disease with known aortic and mitral regurgitation, dilated thoracic aorta, hypertension, dyslipidemia, coronary artery disease based on computed tomography scan, chronic lung disease with pulmonary nodules. We have been asked to evaluate the patient for non-ST elevated myocardial infarction and pulmonary edema. Patient presented to the emergency center complaining of fatigue, chest pain overall his chest radiating into his neck and left arm. He also has some lower extremity edema with weight gain. Patient was started on IV Lasix 40 mg and heparin drip. EKG sinus rhythm with mild ST changes Chest x-ray: Clinical correlation recommended for heart failure. WBC 4.5, hemoglobin 10.5, platelet count 180. Sodium 137, potassium 3.3, chloride 97, CO2 32, BUN 24 creatinine 1.17. Triglycerides 60, cholesterol 101, LDL 45, HDL 43. Troponins is 0.364, 0.391, 0.357. Echocardiogram reveals EF of 50-55%, severe eccentric mitral regurgitation. [id number] tricuspid regurgitation with severe pulmonary hypertension. Home cardiac medications: Lisinopril 40 mg daily, Lopressor 25 mg twice daily. Catheterization performed 2017 for abnormal stress test showing inferior lateral ischemia and moderate mitral regurgitation on echocardiogram. Significant lesion found involving the OM branch and also PDA of the circumflex and there is diffuse disease with calcification of the rest. Preserved LV function. Mild mitral regurgitation. Plan was for maximizing medical therapy. Lexiscan stress test performed 11/15/2021 in the office revealed normal myocardial perfusion imaging. No evidence of any stress-induced ischemia. Normal left ventricular systolic function.. 01/29 Patient is seen today in follow-up on the cardiac stepdown unit. He states his breathing is better today. He denies chest pain. Blood pressure 156/83, heart rate 93, pulse ox 97% on room air. Repeat blood work reveals hemoglobin of 10.2, platelet count 206. Sodium 134, potassium 3.3, chloride 97, CO2 31, BUN 31 creatinine 1.27. Blood sugar 125. Repeat troponin was 0.215. ALT 50 and alkaline phosphatase 131. Patient is in a negative fluid balance. Weight is down 4 kg. Less lower extremity edema. She was transitioned from IV Lasix to oral this morning, continued on heparin drip as well as the addition of Imdur starting yesterday Physical examination: Gen: This is a 77 year old male patient resting in bed appears to be comfortable, no acute respiratory distress VS: reviewed HEENT: Head is atraumatic, normocephalic. Pupils equal, round. Sclerae is anicteric. LUNGS: Diminished breath sounds bilaterally. No wheezes or rhonchi. No intercostal retractions. HEART: Regular rate and rhythm. Systolic murmur. EXTREMITIES: 1+ pedal edema. No calf tenderness. NEUROLOGICAL: Patient is awake, alert and oriented x3. Assessment: Non-ST elevated myocardial infarction Acute exacerbation of diastolic heart failure Severe mitral regurgitation Hypertension Dyslipidemia Coronary artery disease on previous cardiac catheterization as above, on medical management Plan: Continue patient on Lasix 40 mg oral daily Continue patient on heparin drip Continue the addition of Imdur 30 mg daily Continue metoprolol tartrate 25 mg twice daily Continue potassium 10 mEq daily Monitor I&O, daily weights, electrolytes and renal function Make patient nothing by mouth after midnight on Friday for cardiac frida terization on with Dr. Graves Further recommendations to follow based upon clinical course Nurse practitioner note has been reviewed, I agree with documented findings and plan of care. Patient was seen and examined. Objective - Vital Signs Vital signs: Vital Signs Temp 97.6 F 01/28/23 19:41 Pulse 89 01/29/23 04:20 Resp 16 01/29/23 04:20 BP 163/86 01/29/23 04:20 Pulse Ox 97 01/29/23 04:20 FiO2 Intake & Output 01/28/23 01/29/23 01/29/23 18:59 06:59 18:59 Intake Total 89.151 212.728 Output Total 975 1250 Balance -885.849 -1037.272 Weight 73.7 kg Intake: Intake, IV Titration 89.151 212.728 Amount Heparin Sod,Pork in 0.45% 89.151 212.728 NaCl 25,000 unit In 0.45 % NaCl 1 250ml.bag @ 12 UNITS/KG/HR 9.362 mls/hr IV .Q24H [facility] Rx#: [id number] Output: Urine 975 1250 Other: Voiding Method Urinal Urinal # Voids 1 - Labs CBC & Chem 7: 01/29/23 03:33 01/29/23 03:33 Labs: Abnormal Lab Results - Last 24 Hours (Table) 01/28/23 01/28/23 01/28/23 Range/Units 12:47 14:04 20:41 RBC (4.30-5.90) m/uL Hgb (13.0-17.5) gm/dL Hct (39.0-53.0) % Lymphocytes # (1.0-4.8) k/uL APTT 39.0 H 40.7 H (22.0-30.0) sec Sodium (137-145) mmol/L Potassium (3.5-5.1) mmol/L Chloride (98-107) mmol/L Carbon Dioxide (22-30) mmol/L BUN (9-20) mg/dL Creatinine (0.66-1.25) mg/dL Glucose (74-99) mg/dL ALT (4-49) U/L Alkaline Phosphatase (38-126) U/L Troponin I 0.215 H* (0.000-0.034) ng/mL Total Protein (6.3-8.2) g/dL Albumin (3.5-5.0) g/dL 01/29/23 01/29/23 01/29/23 Range/Units 03:33 03:33 03:33 RBC 3.28 L (4.30-5.90) m/uL Hgb 10.2 L (13.0-17.5) gm/dL Hct 31.0 L (39.0-53.0) % Lymphocytes # 0.9 L (1.0-4.8) k/uL APTT 60.8 H (22.0-30.0) sec Sodium 134 L (137-145) mmol/L Potassium 3.3 L (3.5-5.1) mmol/L Chloride 97 L (98-107) mmol/L Carbon Dioxide 31 H (22-30) mmol/L BUN 31 H (9-20) mg/dL Creatinine 1.27 H (0.66-1.25) mg/dL Glucose 125 H (74-99) mg/dL ALT 50 H (4-49) U/L Alkaline Phosphatase 131 H (38-126) U/L Troponin I (0.000-0.034) ng/mL Total Protein 5.7 L (6.3-8.2) g/dL Albumin 3.1 L (3.5-5.0) g/dL
[2023-01-29] MEDS: HEPARIN SOD,PORK IN 0.45% NACL 25,000 UNIT in 0.45% NACL 1 250ML.BAG IV SCH ×2 (16:24→18:18)
[2023-01-30] MEDS: NITROGLYCERIN OINT 1 INCH/GM PACKET TOPICAL SCH ×5 (00:04→23:59)
--- NOTE | 2023-01-30 00:26 | P.PN ---
Subjective Progress Note Date: 01/28/23 Patient is a 77-year-old male with a known history of hypertension, history of CVA/TIA with minimal left-sided weakness, rheumatoid arthritis, bipolar disorder and prior history of smoking presents to ER with complaints of worsening shortness of breath and leg swelling for the past 6 days. Patient was also complaining of generalized weakness and fatigue and chest congestion and discomfort sometimes radiating to his neck on the left side. Patient states that he has history of mitral valve issues but no prior history of CHF. Patient otherwise denies any complaints of fever or chills. Cough without any sputum production. No nausea vomiting or abdominal pain or diarrhea. Denies any dizziness or lightheadedness. Chest x-ray on admission showed clinical correlation recommended for CHF. EKG showed sinus rhythm and ST-T abnormalities in V3 and V4. Laboratory data showed WBC 6.6 hemoglobin 11.3 and platelets 199 Sodium 135 potassium 4.0 chloride 102 bicarb is 25 BUN 21 and creatinine 1.01 and blood sugar 105 AST 52 ALT 84 and alk phos 140 Troponin 0.364, 0.391 and 0.357 proBNP 22245 01/28/2023 Patient is currently sitting in a chair. Awake alert and oriented x 3. Breathing status is better. Still having bilateral lower extremity swelling. Continued on IV Lasix will be changed to by mouth. No complaints of chest pain or worsening shortness of breath.. No nausea vomiting or abdominal pain or diarrhea. Tolerating oral diet. No cough or sputum production. Laboratory data showed WBC 4.5 hemoglobin 10.3.5 and platelets 180 Sodium 137 potassium 3.3 chloride 97 bicarb is 32 BUN 24 and creatinine 1.17. LDL 45.4. Cardiology is on board. 2D echocardiogram showed left ventricular systolic function borderline normal. Severe eccentric mitral regurgitation. Mild to moderate TR with severe pulmonary hypertension. Objective - Vital Signs Vital signs: Vital Signs Temp 97.6 F 01/28/23 19:41 Pulse 98 01/28/23 20:24 Resp 16 01/28/23 20:00 BP 169/79 01/28/23 19:41 Pulse Ox 98 01/28/23 19:41 FiO2 Intake & Output 01/28/23 01/28/23 01/29/23 06:59 18:59 06:59 Intake Total 171.680 89.151 Output Total 2800 975 600 Balance -2628.320 -885.849 -600 Weight 74.6 kg Intake: Intake, IV Titration 171.680 89.151 Amount Heparin Sod,Pork in 0.45% 171.680 89.151 NaCl 25,000 unit In 0.45 % NaCl 1 250ml.bag @ 12 UNITS/KG/HR 9.362 mls/hr IV .Q24H [facility] Rx#: [id number] Output: Urine 2800 975 600 Other: Voiding Method Urinal Urinal Urinal # Voids 1 1 - Exam PHYSICAL EXAMINATION: Patient is lying in the bed comfortably, no acute distress, awake alert and oriented.. HEENT: Normocephalic. Neck is supple. Pupils reactive. Nostrils clear. Oral cavity is moist. Neck reveals no JVD, carotid bruits, or thyromegaly. CHEST EXAMINATION: Trachea is central. Symmetrical expansion. Bibasilar diminished sounds. No wheezing or rhonchi. Nonlabored breathing.. CARDIAC: Normal S1, S2 with no gallops. No murmurs ABDOMEN: Soft. Bowel sounds present. Nontender. No organomegaly. No abdominal bruits. Extremities: Bilateral lower extremity 2+ pitting edema. No clubbing or cyanosis Neurologically awake, alert, oriented x3 with well-coordinated movements. No gross focal deficits noted Skin: No rash or skin lesions. Psychiatric: Coperative. Nonsuicidal, Musculoskeletal: No joint swelling or deformity. Normal range of motion. - Labs CBC & Chem 7: 01/29/23 03:33 01/29/23 03:33 Labs: Abnormal Lab Results - Last 24 Hours (Table) 01/28/23 01/28/23 01/28/23 Range/Units 04:33 04:33 04:33 RBC 3.38 L (4.30-5.90) m/uL Hgb 10.5 L (13.0-17.5) gm/dL Hct 31.5 L (39.0-53.0) % Lymphocytes # 0.9 L (1.0-4.8) k/uL APTT 37.7 H (22.0-30.0) sec Potassium 3.3 L (3.5-5.1) mmol/L Chloride 97 L (98-107) mmol/L Carbon Dioxide 32 H (22-30) mmol/L BUN 24 H (9-20) mg/dL Glucose 114 H (74-99) mg/dL Troponin I (0.000-0.034) ng/mL 01/28/23 01/28/23 Range/Units 12:47 14:04 RBC (4.30-5.90) m/uL Hgb (13.0-17.5) gm/dL Hct (39.0-53.0) % Lymphocytes # (1.0-4.8) k/uL APTT 39.0 H (22.0-30.0) sec Potassium (3.5-5.1) mmol/L Chloride (98-107) mmol/L Carbon Dioxide (22-30) mmol/L BUN (9-20) mg/dL Glucose (74-99) mg/dL Troponin I 0.215 H* (0.000-0.034) ng/mL Assessment and Plan Assessment: Acute non-ST elevated [place] with elevated troponin level Acute CHF preserved EF. Valvular heart disease Eccentric MR, mild to moderate TR with severe pulmonary hypertension Hypertension uncontrolled on admission History of CVA with mild left-sided residual weakness Prediabetic History of DVT right lower extremity in 2012 Rheumatoid arthritis Osteoarthritis COPD not in exacerbation Bipolar disorder Prior history of smoking quit in 1987 DVT prophylaxis patient is already on heparin drip Plan: Patient will be continued on telemetry. Trend troponins. Started on heparin drip and cardiology was consulted. Continue with diuresis with IV Lasix , changed to PO. Continue with metoprolol, aspirin. Continue home medications including breathing treatments and follow-up closely. Prognosis is guarded. Time with Patient: Greater than 30
--- NOTE | 2023-01-30 00:28 | P.PN ---
Subjective Progress Note Date: 01/29/23 Patient is a 77-year-old male with a known history of hypertension, history of CVA/TIA with minimal left-sided weakness, rheumatoid arthritis, bipolar disorder and prior history of smoking presents to ER with complaints of worsening shortness of breath and leg swelling for the past 6 days. Patient was also complaining of generalized weakness and fatigue and chest congestion and discomfort sometimes radiating to his neck on the left side. Patient states that he has history of mitral valve issues but no prior history of CHF. Patient otherwise denies any complaints of fever or chills. Cough without any sputum production. No nausea vomiting or abdominal pain or diarrhea. Denies any dizziness or lightheadedness. Chest x-ray on admission showed clinical correlation recommended for CHF. EKG showed sinus rhythm and ST-T abnormalities in V3 and V4. Laboratory data showed WBC 6.6 hemoglobin 11.3 and platelets 199 Sodium 135 potassium 4.0 chloride 102 bicarb is 25 BUN 21 and creatinine 1.01 and blood sugar 105 AST 52 ALT 84 and alk phos 140 Troponin 0.364, 0.391 and 0.357 proBNP 84240 01/28/2023 Patient is currently sitting in a chair. Awake alert and oriented x 3. Breathing status is better. Still having bilateral lower extremity swelling. Continued on IV Lasix will be changed to by mouth. No complaints of chest pain or worsening shortness of breath.. No nausea vomiting or abdominal pain or diarrhea. Tolerating oral diet. No cough or sputum production. Laboratory data showed WBC 4.5 hemoglobin 10.3.5 and platelets 180 Sodium 137 potassium 3.3 chloride 97 bicarb is 32 BUN 24 and creatinine 1.17. LDL 45.4. Cardiology is on board. 2D echocardiogram showed left ventricular systolic function borderline normal. Severe eccentric mitral regurgitation. Mild to moderate TR with severe pulmonary hypertension. 01/29/2023 Patient is currently resting in bed. Awake alert and oriented x 3. Breathing status is much improved. No complaints of chest pain or tightness. Currently on room air. No headache or dizziness or lightheadedness. Potassium is 3.3 today. No rectal swelling is also improving. Patient is being current heparin drip. Imdur was added. Cardiology is planning for catheterization tomorrow. Other laboratory data showed WBC 4.2 hemoglobin 10.2 and platelets 206, sodium 134 potassium 3.3 chloride 97 bicarb is 31 BUN 31 creatinine 1.27. Objective - Vital Signs Vital signs: Vital Signs Temp 97.5 F L 01/29/23 19:50 Pulse 88 01/29/23 21:04 Resp 16 01/29/23 19:50 BP 135/64 01/29/23 19:50 Pulse Ox 98 01/29/23 19:50 FiO2 Intake & Output 01/29/23 01/29/23 01/30/23 06:59 18:59 06:59 Intake Total 239.169 476 118 Output Total 1250 900 200 Balance -1010.831 -424 -82 Weight 73.7 kg Intake: Intake, IV Titration 239.169 Amount Heparin Sod,Pork in 0.45% 239.169 NaCl 25,000 unit In 0.45 % NaCl 1 250ml.bag @ 12 UNITS/KG/HR 9.362 mls/hr IV .Q24H [facility] Rx#: [id number] Oral 476 118 Output: Urine 1250 900 200 Other: Voiding Method Urinal Urinal Urinal # Voids 1 1 - Exam PHYSICAL EXAMINATION: Patient is lying in the bed comfortably, no acute distress, awake alert and oriented.. HEENT: Normocephalic. Neck is supple. Pupils reactive. Nostrils clear. Oral cavity is moist. Neck reveals no JVD, carotid bruits, or thyromegaly. CHEST EXAMINATION: Trachea is central. Symmetrical expansion. Bibasilar diminished sounds. No wheezing or rhonchi. Nonlabored breathing.. CARDIAC: Normal S1, S2 with no gallops. No murmurs ABDOMEN: Soft. Bowel sounds present. Nontender. No organomegaly. No abdominal bruits. Extremities: Bilateral lower extremity 2+ pitting edema. No clubbing or cyanosis Neurologically awake, alert, oriented x3 with well-coordinated movements. No gross focal deficits noted Skin: No rash or skin lesions. Psychiatric: Coperative. Nonsuicidal, Musculoskeletal: No joint swelling or deformity. Normal range of motion. - Labs CBC & Chem 7: 01/29/23 03:33 01/29/23 03:33 Labs: Abnormal Lab Results - Last 24 Hours (Table) 01/29/23 01/29/23 01/29/23 Range/Units 03:33 03:33 03:33 RBC 3.28 L (4.30-5.90) m/uL Hgb 10.2 L (13.0-17.5) gm/dL Hct 31.0 L (39.0-53.0) % Lymphocytes # 0.9 L (1.0-4.8) k/uL APTT 60.8 H (22.0-30.0) sec Sodium 134 L (137-145) mmol/L Potassium 3.3 L (3.5-5.1) mmol/L Chloride 97 L (98-107) mmol/L Carbon Dioxide 31 H (22-30) mmol/L BUN 31 H (9-20) mg/dL Creatinine 1.27 H (0.66-1.25) mg/dL Glucose 125 H (74-99) mg/dL ALT 50 H (4-49) U/L Alkaline Phosphatase 131 H (38-126) U/L Total Protein 5.7 L (6.3-8.2) g/dL Albumin 3.1 L (3.5-5.0) g/dL Assessment and Plan Assessment: Acute non-ST elevated [place] with elevated troponin level Acute CHF preserved EF. Valvular heart disease Eccentric MR, mild to moderate TR with severe pulmonary hypertension Hypertension uncontrolled on admission History of CVA with mild left-sided residual weakness Prediabetic History of DVT right lower extremity in 2012 Rheumatoid arthritis Osteoarthritis COPD not in exacerbation Bipolar disorder Prior history of smoking quit in 1987 DVT prophylaxis patient is already on heparin drip Plan: Patient will be continued on telemetry. Started on heparin drip and cardiology was consulted. Continue with diuresis with IV Lasix , changed to PO. Continue with metoprolol, aspirin. imdur was added. Cardiology is planning for catheterization tomorrow. Nothing by mouth after midnight. Continue home medications including breathing treatments and follow-up closely. Prognosis is guarded. Time with Patient: Greater than 30
[2023-01-30] MEDS ORDERED: ATORVASTATIN 80 MG TAB PO ONE (07:00)
[2023-01-30] MEDS ORDERED: HEPARIN SODIUM,PORCINE (1 ML) 2,500 UNIT in SODIUM CHLORIDE 0.9% 250 ML IRRIGATION PRN (07:00)
[2023-01-30] MEDS ORDERED: HEPARIN SODIUM,PORCINE 10,000 UNIT in SODIUM CHLORIDE 0.9% 1,000 ML IRRIGATION PRN (07:00)
[2023-01-30] MEDS ORDERED: ASPIRIN 325 MG TAB PO ONE (07:00)
[2023-01-30] MEDS: ASPIRIN 81 MG PO SCH (08:51)
[2023-01-30] MEDS: ACETAMINOPHEN TAB 325 MG TAB PO PRN (08:55)
[2023-01-30] MEDS: POTASSIUM CHLORIDE ER 10 MEQ TAB.ER.PRT PO SCH (08:55)
[2023-01-30] MEDS: FUROSEMIDE 40 MG TAB PO SCH (08:55)
[2023-01-30] MEDS: ISOSORBIDE MONONITRATE ER 30 MG TAB.ER.24H PO SCH (08:55)
[2023-01-30] MEDS: METOPROLOL TARTRATE 25 MG TAB PO SCH ×2 (08:55→19:52)
[2023-01-30] MEDS: IPRATROPIUM 0.5 MG/2.5 ML NEBU INHALATION SCH ×4 (09:36→21:37)
[2023-01-30] MEDS: SYMBICORT 80-4.5 MCG INHALER INHALATION SCH ×2 (09:36→21:37)
[2023-01-30] MEDS: HEPARIN SOD,PORK IN 0.45% NACL 25,000 UNIT in 0.45% NACL 1 250ML.BAG IV SCH (09:41)
[2023-01-30 10:26] LABS: HCT 32.7 % (39.0-53.0); HGB 10.5 gm/dL (13.0-17.5); Hypochromasia Slight; MCH 30.8 pg (25.0-35.0); MCHC 32.2 g/dL (31.0-37.0); MCV 95.8 fL (80.0-100.0); Mean Platelet Volume 7.9; Platelet Count 224 k/uL (150-450); RBC 3.42 m/uL (4.30-5.90); RDW 13.9 % (11.5-15.5); WBC 3.9 k/uL (3.8-10.6)
[2023-01-30 11:18] LABS: African American GFR (CKD) 79 (>60 ml/min/1.73 sqM); Anion Gap 7 mmol/L; Blood Urea Nitrogen 24 mg/dL (9-20); Calcium 8.8 mg/dL (8.4-10.2); Carbon Dioxide 28 mmol/L (22-30); Chloride 102 mmol/L (98-107); Glucose 99 mg/dL (74-99); Non-African American GFR(CKD) 68 (>60 ml/min/1.73 sqM); Potassium 3.7 mmol/L (3.5-5.1); Sodium 137 mmol/L (137-145)
[2023-01-30] MEDS ORDERED: POTASSIUM CHLORIDE ER 20 MEQ TAB.ER PO STA (12:11)
--- NOTE | 2023-01-30 12:59 | PN ---
PROGRESS NOTE SUBJECTIVE: Mr. Eubanks is doing well. He has severe mitral regurgitation and moderate CAD by cath. He came in with elevated troponin and chest pain. His CHF symptoms have improved. I am recommending that he can proceed with cardiac cath which will be performed today by Dr. Graves. OBJECTIVE: VITALS: Stable. NECK: JVD 1 cm, no carotid bruit. HEART: S1, S2 heard normally. Holosystolic murmur is audible at the apex. LUNGS: Clear. ABDOMEN: Unchanged. EXTREMITIES: Lower extremity exam unchanged. He will have a cardiac cath today based on findings intervention, possible discharge tomorrow based on the findings. MMODL / IJN: [id number] /
[2023-01-31] MEDS: FUROSEMIDE 40 MG TAB PO SCH (06:18)
[2023-01-31] MEDS: POTASSIUM CHLORIDE ER 10 MEQ TAB.ER.PRT PO SCH (06:19)
[2023-01-31] MEDS: NITROGLYCERIN OINT 1 INCH/GM PACKET TOPICAL SCH ×3 (06:19→17:01)
[2023-01-31] MEDS: ISOSORBIDE MONONITRATE ER 30 MG TAB.ER.24H PO SCH (06:19)
[2023-01-31] MEDS: METOPROLOL TARTRATE 25 MG TAB PO SCH ×2 (06:19→20:02)
[2023-01-31] MEDS ORDERED: ATORVASTATIN 80 MG TAB PO ONE (07:00)
[2023-01-31] MEDS ORDERED: ASPIRIN 325 MG TAB PO ONE (07:00)
[2023-01-31] MEDS ORDERED: LIDOCAINE 1% INJ 10MG/ML (20 ML MDV) ONE (07:23)
[2023-01-31] MEDS ORDERED: VERAPAMIL 2.5 MG/ML 2 ML AMP ONE (07:23)
[2023-01-31] MEDS: MIDAZOLAM 2 MG/2 ML VIAL IVP ONE ×2 (07:55→08:09)
[2023-01-31] MEDS ORDERED: IV FLUID CONTINUATION 800 ML IV ONE (07:55)
[2023-01-31] MEDS ORDERED: LIDOCAINE 1% INJ 10MG/ML (20 ML MDV) SQ ONE (07:58)
[2023-01-31] MEDS ORDERED: VERAPAMIL SYRINGE (5 MG/10 ML) INTRAARTER ONE (08:00)
[2023-01-31] MEDS ORDERED: NITROGLYCERIN SL TABS 0.4 MG TAB SUBLINGUAL ONE ×2 (08:08→08:09)
[2023-01-31] MEDS ORDERED: CLOPIDOGREL 75 MG TAB ONE (08:13)
[2023-01-31] MEDS ORDERED: HEPARIN SODIUM 1,000 UN/ML (10ML VL) ONE (08:15)
[2023-01-31] MEDS: HEPARIN SODIUM 1,000 UN/ML (10ML VL) IV ONE ×2 (08:15→08:59)
[2023-01-31] MEDS ORDERED: CLOPIDOGREL 75 MG TAB PO ONE (08:19)
[2023-01-31] MEDS ORDERED: NITROGLYCERIN 1000MCG/10ML SYRINGE INTRACORON ONE (08:27)
[2023-01-31] MEDS ORDERED: IOPAMIDOL-370 100ML BTL INJ ONE ×2 (08:28→08:42)
[2023-01-31] MEDS: SYMBICORT 80-4.5 MCG INHALER INHALATION SCH ×2 (08:32→22:10)
[2023-01-31] MEDS: IPRATROPIUM 0.5 MG/2.5 ML NEBU INHALATION SCH ×4 (08:33→22:10)
[2023-01-31] MEDS ORDERED: ATROPINE SULFATE 0.1 MG/ML 10ML SYRINGE IV PRN (08:54)
[2023-01-31] MEDS ORDERED: RX INFO: IV CONTRAST WAS GIVEN 1 EACH MISC MISCELLANE PRN (08:54)
[2023-01-31] MEDS ORDERED: NITROGLYCERIN SL TABS 0.4 MG TAB SUBLINGUAL PRN (08:54)
[2023-01-31] MEDS ORDERED: ZOLPIDEM 5 MG TAB PO PRN (08:54)
[2023-01-31] MEDS ORDERED: MAG HYDROX/AL HYDROX/SIMETH 30 ML CUP PO PRN (08:54)
[2023-01-31] MEDS ORDERED: SODIUM CHLORIDE 0.9% 1,000 ML in EMPTY BAG 1 BAG IV SCH (09:00)
--- NOTE | 2023-01-31 09:00 | P.PCN ---
Date of Procedure: 01/31/23 Operative Findings: CARDIAC CATHETERIZATION AND PERCUTANEOUS CORONARY INTERVENTION PERFORMING PHYSICIAN: Stephan Graves MD, [facility] PROCEDURE PERFORMED: 1. Selective right and left coronary angiogram 2. Successful stenting of OM1 using 3.0 x 15 mm Xience DEBI with an excellent angiographic results 3. Adjunctive use of intravascular imaging 4. Ultrasound guided access of the right radial artery INDICATION: Acute non-ST elevation myocardial infarction COMPLICATION: None APPROACH: Right radial approach LEVEL OF SEDATION: Moderate with the sedation time off 46 minutes PROCEDURE DESCRIPTION: After obtaining an informed consent the patient was brought to the cardiac labor training manager. The right radial artery was cannulated using puncture technique under ultrasound guidance macro puncture wire passed easily then I placed a 6-Yoruba sheath in the right radial artery. They gave the patient 2 mg of verapamil intra-arterially. Selective right and left coronary angiogram performed using JR4 and JL 3.5 catheters. After that I did intervene on the OM1. The procedure was completed was no complication. SELECTIVE CORONARY ANGIOGRAM: The right coronary artery: Moderate caliber vessel nondominant vessel was mild to moderate diffuse disease Left main: Calcified was mild disease only The left circumflex: Large caliber vessel and a dominant vessel. The LCx proximally has mild disease only gives rises into an OM1 which is a large caliber vessel with severe disease in the midportion. Then the left circumflex continues was mild disease and distally bifurcates into PDA and PLV branches both appear to have mild diffuse disease The left anterior descending artery: Large caliber vessel. The LAD proximally has intermediate lesion appeared to be in the range of 40-50% by the bifurcation of a large diagonal branch. The LAD distally appears to have another intermediate lesion in the range of 40-50% PCI OF THE OM1: And anticoagulation was initiated using heparin with continuous ACT monitoring. Subsequently I did engage the left main using JL 3.5 guiding catheter. I did where the OM1 using a run-through wire. Intravascular ultrasound was performed that I could not advance the catheter to the mid OM1 only went into the proximal OM. The diameter was about 3 mm and the artery was calcified. Predilatation was performed using 2.5 mm noncompliant balloon. Subsequently attending advancing 3.0 x 12 mm stent was unsuccessful in spite of using a guide liner. I had to wire the OM using a whisper wire. Subsequently I predilated using 3 mm noncompliant balloon before I was able to advance 3.0 x 12 mm stent where the stent was positioned under fluoroscopy guidance and deployed under fluoroscopy guidance. Final angiogram showed good angiographic results and the procedure was completed was no complication CONCLUSION: Critical disease involving OM1. I did perform successful stenting of OM1 Intermediate disease involving the proximal LAD in the proximal and distal portions POSTPROCEDURE MANAGEMENT: 1. Dual antiplatelet therapy using aspirin and Plavix for 12 month 2. Aggressive cholesterol control 3. Follow-up with the patient
--- NOTE | 2023-01-31 10:55 | PN ---
PROGRESS NOTE SUBJECTIVE: Mr. Eubanks is going for a cardiac cath today. He has disease in the circumflex as well as distal branch of circumflex PDA. Dr. Graves will perform the procedure. OBJECTIVE: VITAL SIGNS: Stable. NECK: No JVD. HEART: S1 and S2 heard normally. Holosystolic murmur at the apex. LUNGS: Clear. ABDOMEN: Unchanged. EXTREMITIES: Lower extremity unchanged. This gentleman also has moderate to severe mitral regurgitation, which will require intervention down the road. Cardiac cath today and possible discharge tomorrow. MMODL / IJN: [id number] /
[2023-01-31 13:27] VITALS: BMI 26.2
[2023-01-31 15:49] LABS: African American GFR (CKD) 59 (>60 ml/min/1.73 sqM); Anion Gap 11 mmol/L; Blood Urea Nitrogen 25 mg/dL (9-20); Carbon Dioxide 27 mmol/L (22-30); Chloride 99 mmol/L (98-107); Glucose 114 mg/dL (74-99); Non-African American GFR(CKD) 51 (>60 ml/min/1.73 sqM); Potassium 4.2 mmol/L (3.5-5.1); Sodium 137 mmol/L (137-145)
[2023-01-31] MEDS ORDERED: ATORVASTATIN 80 MG TAB PO SCH (21:00)
--- NOTE | 2023-01-31 23:59 | P.PN ---
Subjective Progress Note Date: 01/30/23 Patient is a 77-year-old male with a known history of hypertension, history of CVA/TIA with minimal left-sided weakness, rheumatoid arthritis, bipolar disorder and prior history of smoking presents to ER with complaints of worsening shortness of breath and leg swelling for the past 6 days. Patient was also complaining of generalized weakness and fatigue and chest congestion and discomfort sometimes radiating to his neck on the left side. Patient states that he has history of mitral valve issues but no prior history of CHF. Patient otherwise denies any complaints of fever or chills. Cough without any sputum production. No nausea vomiting or abdominal pain or diarrhea. Denies any dizziness or lightheadedness. Chest x-ray on admission showed clinical correlation recommended for CHF. EKG showed sinus rhythm and ST-T abnormalities in V3 and V4. Laboratory data showed WBC 6.6 hemoglobin 11.3 and platelets 199 Sodium 135 potassium 4.0 chloride 102 bicarb is 25 BUN 21 and creatinine 1.01 and blood sugar 105 AST 52 ALT 84 and alk phos 140 Troponin 0.364, 0.391 and 0.357 proBNP 30453 01/28/2023 Patient is currently sitting in a chair. Awake alert and oriented x 3. Breathing status is better. Still having bilateral lower extremity swelling. Continued on IV Lasix will be changed to by mouth. No complaints of chest pain or worsening shortness of breath.. No nausea vomiting or abdominal pain or diarrhea. Tolerating oral diet. No cough or sputum production. Laboratory data showed WBC 4.5 hemoglobin 10.3.5 and platelets 180 Sodium 137 potassium 3.3 chloride 97 bicarb is 32 BUN 24 and creatinine 1.17. LDL 45.4. Cardiology is on board. 2D echocardiogram showed left ventricular systolic function borderline normal. Severe eccentric mitral regurgitation. Mild to moderate TR with severe pulmonary hypertension. 01/29/2023 Patient is currently resting in bed. Awake alert and oriented x 3. Breathing status is much improved. No complaints of chest pain or tightness. Currently on room air. No headache or dizziness or lightheadedness. Potassium is 3.3 today. No rectal swelling is also improving. Patient is being current heparin drip. Imdur was added. Cardiology is planning for catheterization tomorrow. Other laboratory data showed WBC 4.2 hemoglobin 10.2 and platelets 206, sodium 134 potassium 3.3 chloride 97 bicarb is 31 BUN 31 creatinine 1.27. 01/30/2023 Patient is currently sitting in the chair. Awake alert and oriented x 3. No complaints of chest pain or shortness of breath. No nausea vomiting abdominal pain or diarrhea. Leg swelling is much improved. Patient is on oral Lasix 40 mg daily. Cardiac cath rescheduled for tomorrow. Laboratory data showed WBC 3.9 hemoglobin 10.5 and platelets 224 Sodium 137 potassium 3.7 chloride 102 bicarb is 28 BUN 24 and creatinine 1.04 and blood sugar is 199. Objective - Vital Signs Vital signs: Vital Signs Temp 98.0 F 01/30/23 19:50 Pulse 78 01/30/23 20:00 Resp 18 01/30/23 19:50 BP 137/72 01/30/23 19:50 Pulse Ox 99 01/30/23 19:50 FiO2 Intake & Output 01/30/23 01/30/23 01/31/23 06:59 18:59 06:59 Intake Total 118 608.784 240 Output Total 1150 1350 Balance -1032 -741.216 240 Intake: Intake, IV Titration 368.784 Amount Heparin Sod,Pork in 0.45% 368.784 NaCl 25,000 unit In 0.45 % NaCl 1 250ml.bag @ 12 UNITS/KG/HR 9.362 mls/hr IV .Q24H [facility] Rx#: [id number] Oral 118 240 240 Output: Urine 1150 1350 Other: Voiding Method Urinal Urinal Urinal # Voids 1 - Exam PHYSICAL EXAMINATION: Patient is lying in the bed comfortably, no acute distress, awake alert and oriented.. HEENT: Normocephalic. Neck is supple. Pupils reactive. Nostrils clear. Oral cavity is moist. Neck reveals no JVD, carotid bruits, or thyromegaly. CHEST EXAMINATION: Trachea is central. Symmetrical expansion. Bibasilar diminished sounds. No wheezing or rhonchi. Nonlabored breathing.. CARDIAC: Normal S1, S2 with no gallops. No murmurs ABDOMEN: Soft. Bowel sounds present. Nontender. No organomegaly. No abdominal bruits. Extremities: Bilateral lower extremity 2+ pitting edema. No clubbing or cyanosis Neurologically awake, alert, oriented x3 with well-coordinated movements. No gross focal deficits noted Skin: No rash or skin lesions. Psychiatric: Coperative. Nonsuicidal, Musculoskeletal: No joint swelling or deformity. Normal range of motion. - Labs CBC & Chem 7: 01/30/23 10:04 01/31/23 14:51 Labs: Abnormal Lab Results - Last 24 Hours (Table) 01/30/23 01/30/23 01/30/23 Range/Units 10:04 10:04 10:04 RBC 3.42 L (4.30-5.90) m/uL Hgb 10.5 L (13.0-17.5) gm/dL Hct 32.7 L (39.0-53.0) % APTT 65.3 H (22.0-30.0) sec BUN 24 H (9-20) mg/dL 01/30/23 Range/Units 16:10 RBC (4.30-5.90) m/uL Hgb (13.0-17.5) gm/dL Hct (39.0-53.0) % APTT 75.7 H (22.0-30.0) sec BUN (9-20) mg/dL Assessment and Plan Assessment: Acute non-ST elevated [place] with elevated troponin level Acute CHF preserved EF. Valvular heart disease Eccentric MR, mild to moderate TR with severe pulmonary hypertension Hypertension uncontrolled on admission History of CVA with mild left-sided residual weakness Prediabetic History of DVT right lower extremity in 2012 Rheumatoid arthritis Osteoarthritis COPD not in exacerbation Bipolar disorder Prior history of smoking quit in 1987 DVT prophylaxis patient is already on heparin drip Plan: Patient will be continued on telemetry. Started on heparin drip and cardiology was consulted. Continue with diuresis with IV Lasix , changed to PO. Continue with metoprolol, aspirin. imdur was added. Cardiology is planning for catheterization today but rescheduled. Nothing by mouth after midnight. Continue home medications including breathing treatments and follow-up closely. Prognosis is guarded.
--- NOTE | 2023-02-01 00:06 | P.PN ---
Subjective Progress Note Date: 01/31/23 Patient is a 77-year-old male with a known history of hypertension, history of CVA/TIA with minimal left-sided weakness, rheumatoid arthritis, bipolar disorder and prior history of smoking presents to ER with complaints of worsening shortness of breath and leg swelling for the past 6 days. Patient was also complaining of generalized weakness and fatigue and chest congestion and discomfort sometimes radiating to his neck on the left side. Patient states that he has history of mitral valve issues but no prior history of CHF. Patient otherwise denies any complaints of fever or chills. Cough without any sputum production. No nausea vomiting or abdominal pain or diarrhea. Denies any dizziness or lightheadedness. Chest x-ray on admission showed clinical correlation recommended for CHF. EKG showed sinus rhythm and ST-T abnormalities in V3 and V4. Laboratory data showed WBC 6.6 hemoglobin 11.3 and platelets 199 Sodium 135 potassium 4.0 chloride 102 bicarb is 25 BUN 21 and creatinine 1.01 and blood sugar 105 AST 52 ALT 84 and alk phos 140 Troponin 0.364, 0.391 and 0.357 proBNP 43278 01/28/2023 Patient is currently sitting in a chair. Awake alert and oriented x 3. Breathing status is better. Still having bilateral lower extremity swelling. Continued on IV Lasix will be changed to by mouth. No complaints of chest pain or worsening shortness of breath.. No nausea vomiting or abdominal pain or diarrhea. Tolerating oral diet. No cough or sputum production. Laboratory data showed WBC 4.5 hemoglobin 10.3.5 and platelets 180 Sodium 137 potassium 3.3 chloride 97 bicarb is 32 BUN 24 and creatinine 1.17. LDL 45.4. Cardiology is on board. 2D echocardiogram showed left ventricular systolic function borderline normal. Severe eccentric mitral regurgitation. Mild to moderate TR with severe pulmonary hypertension. 01/29/2023 Patient is currently resting in bed. Awake alert and oriented x 3. Breathing status is much improved. No complaints of chest pain or tightness. Currently on room air. No headache or dizziness or lightheadedness. Potassium is 3.3 today. No rectal swelling is also improving. Patient is being current heparin drip. Imdur was added. Cardiology is planning for catheterization tomorrow. Other laboratory data showed WBC 4.2 hemoglobin 10.2 and platelets 206, sodium 134 potassium 3.3 chloride 97 bicarb is 31 BUN 31 creatinine 1.27. 01/30/2023 Patient is currently sitting in the chair. Awake alert and oriented x 3. No complaints of chest pain or shortness of breath. No nausea vomiting abdominal pain or diarrhea. Leg swelling is much improved. Patient is on oral Lasix 40 mg daily. Cardiac cath rescheduled for tomorrow. Laboratory data showed WBC 3.9 hemoglobin 10.5 and platelets 224 Sodium 137 potassium 3.7 chloride 102 bicarb is 28 BUN 24 and creatinine 1.04 and blood sugar is 199. 01/31/2023 Patient is currently resting in bed. Status postcardiac catheterization today. Successful stenting of OM1 with DEBI. . Any chest pain or shortness of breath. Leg swelling is getting better. Patient was started on Plavix 75 mg daily along with aspirin and statins. Patient is on oral Lasix and metoprolol. Heparin drip will be discontinued. Lab data showed sodium 137 potassium 4.2 chloride 99 bicarb is 27 BUN 25 and creatinine increased to 1.33 today. Cardiology is on board. Current medications reviewed. Objective - Vital Signs Vital signs: Vital Signs Temp 97.8 F 01/31/23 20:00 Pulse 94 01/31/23 20:00 Resp 16 01/31/23 20:00 BP 148/78 01/31/23 20:00 Pulse Ox 99 01/31/23 20:00 FiO2 Intake & Output 01/31/23 01/31/23 02/01/23 06:59 18:59 06:59 Intake Total 356.113 740 Output Total 1400 Balance -1043.887 740 Weight 73.7 kg Intake: IV 200 Intake, IV Titration 116.113 Amount Heparin Sod,Pork in 0.45% 116.113 NaCl 25,000 unit In 0.45 % NaCl 1 250ml.bag @ 12 UNITS/KG/HR 9.362 mls/hr IV .Q24H [facility] Rx#: [id number] Oral 240 540 Output: Urine 1400 Other: Voiding Method Urinal Urinal Urinal # Voids 2 2 - Exam PHYSICAL EXAMINATION: Patient is lying in the bed comfortably, no acute distress, awake alert and oriented.. HEENT: Normocephalic. Neck is supple. Pupils reactive. Nostrils clear. Oral cavity is moist. Neck reveals no JVD, carotid bruits, or thyromegaly. CHEST EXAMINATION: Trachea is central. Symmetrical expansion. Bibasilar diminished sounds. No wheezing or rhonchi. Nonlabored breathing.. CARDIAC: Normal S1, S2 with no gallops. No murmurs ABDOMEN: Soft. Bowel sounds present. Nontender. No organomegaly. No abdominal bruits. Extremities: Bilateral lower extremity 2+ pitting edema. No clubbing or cyanosis Neurologically awake, alert, oriented x3 with well-coordinated movements. No gross focal deficits noted Skin: No rash or skin lesions. Psychiatric: Coperative. Nonsuicidal, Musculoskeletal: No joint swelling or deformity. Normal range of motion. - Labs CBC & Chem 7: 01/30/23 10:04 01/31/23 14:51 Labs: Abnormal Lab Results - Last 24 Hours (Table) 01/30/23 01/31/23 Range/Units 23:49 14:51 APTT 67.5 H (22.0-30.0) sec BUN 25 H (9-20) mg/dL Creatinine 1.33 H (0.66-1.25) mg/dL Glucose 114 H (74-99) mg/dL Assessment and Plan Assessment: Acute non-ST elevated [place] with elevated troponin level. Status postcardiac catheterization and stent placement today. Acute CHF preserved EF. Valvular heart disease Eccentric MR, mild to moderate TR with severe pulmonary hypertension Hypertension uncontrolled on admission History of CVA with mild left-sided residual weakness Prediabetic History of DVT right lower extremity in 2012 Rheumatoid arthritis Osteoarthritis COPD not in exacerbation Bipolar disorder Prior history of smoking quit in 1987 DVT prophylaxis patient is already on heparin drip Plan: Patient will be continued on telemonitoring. Heparin drip will be discontinued. Continue with oral Lasix. Cardiology aspirin, Plavix was started. Continue beta-blockers. Continue with diuresis with IV Lasix , changed to PO. Continue with metoprolol, aspirin. imdur was added. Status postcardiac catheterization and stent placement today.. Continue home medications including breathing treatments and follow-up closely. Anticipate discharge in the next 24 hours. Time with Patient: Greater than 30
[2023-02-01] MEDS: NITROGLYCERIN OINT 1 INCH/GM PACKET TOPICAL SCH ×3 (00:24→12:17)
[2023-02-01] MEDS: ACETAMINOPHEN TAB 325 MG TAB PO PRN (06:25)
[2023-02-01] MEDS: SYMBICORT 80-4.5 MCG INHALER INHALATION SCH (08:32)
[2023-02-01] MEDS: IPRATROPIUM 0.5 MG/2.5 ML NEBU INHALATION SCH ×3 (08:32→15:36)
[2023-02-01] MEDS ORDERED: CLOPIDOGREL 75 MG TAB PO SCH (09:00)
[2023-02-01] MEDS ORDERED: ASPIRIN 81 MG PO SCH (09:00)
[2023-02-01] MEDS: FUROSEMIDE 40 MG TAB PO SCH (09:07)
[2023-02-01] MEDS: POTASSIUM CHLORIDE ER 10 MEQ TAB.ER.PRT PO SCH (09:07)
[2023-02-01] MEDS: METOPROLOL TARTRATE 25 MG TAB PO SCH (09:07)
[2023-02-01] MEDS: ISOSORBIDE MONONITRATE ER 30 MG TAB.ER.24H PO SCH (09:07)
[2023-02-01 09:12] VITALS: TEMP 97.6
[2023-02-01 10:30] LABS: Basophils % (A) 0 %; Eosinophils % (A) 1 %; HCT 34.1 % (39.0-53.0); HGB 10.8 gm/dL (13.0-17.5); Hypochromasia Slight; Lymphocytes # (A) 0.5 k/uL (1.0-4.8); Lymphocytes % (A) 15 %; MCH 30.6 pg (25.0-35.0); MCHC 31.6 g/dL (31.0-37.0); MCV 96.7 fL (80.0-100.0); Mean Platelet Volume 7.9; Monocytes # (A) 0.3 k/uL (0-1.0); Monocytes % (A) 8 %; Neutrophils # (A) 2.7 k/uL (1.3-7.7); Neutrophils % (A) 74 %; Platelet Count 216 k/uL (150-450); RBC 3.53 m/uL (4.30-5.90); RDW 13.8 % (11.5-15.5); WBC 3.6 k/uL (3.8-10.6)
[2023-02-01 12:12] VITALS: BP 152/81; PULSE 70; RESP 20
[2023-02-01] MEDS: HEPARIN SOD,PORK IN 0.45% NACL 25,000 UNIT in 0.45% NACL 1 250ML.BAG IV SCH (12:17)
[2023-02-01 12:46] LABS: African American GFR (CKD) 72 (>60 ml/min/1.73 sqM); Anion Gap 12 mmol/L; Blood Urea Nitrogen 23 mg/dL (9-20); Calcium 8.9 mg/dL (8.4-10.2); Carbon Dioxide 26 mmol/L (22-30); Chloride 98 mmol/L (98-107); Glucose 195 mg/dL (74-99); Non-African American GFR(CKD) 62 (>60 ml/min/1.73 sqM); Potassium 3.9 mmol/L (3.5-5.1); Sodium 136 mmol/L (137-145)
--- NOTE | 2023-02-01 14:47 | P.PN ---
Subjective Progress Note Date: 02/01/23 This is Tj Armas NP, I'm dictating on behalf of Dr. Dale's H&P and A&P. Patient was interviewed and examined. Patient is a pleasant 77-year-old male who presented to the hospital with a non-STEMIy, and underwent PCI with stenting to the OM1 yesterday. Patient was also found to have mild LCx disease, intermediate LAD disease. Patient is morning is feeling well today. He is denying chest pain and shortness of breath. Access site is closed with no signs of bleeding. Pulses are good. GENERAL: Well-appearing, well-nourished and in no acute distress. NECK: Supple without JVD or thyromegaly. LUNGS: Breath sounds clear to auscultation bilaterally. Respiration equal and unlabored. No wheezes, rales or rhonchi. HEART: Regular rate and rhythm without murmurs, rubs or gallops. S1 and S2 h eard. EXTREMITIES: Normal range of motion, no edema. No clubbing or cyanosis. Peripheral pulses intact and strong. VITALS: Temp 97.6, pulse 67, respirations 20, blood pressure 152/81, O2 saturation 97% on room air TELEMETRY: Normal sinus rhythm LABS: White count 3.6, hemoglobin 10.8, platelets 216, sodium 136, potassium 3.9, BUN 23, creatinine 1.12, calcium 8.9 IMPRESSION: 1. Non-ST elevated myocardial infarction 2. Acute exacerbation of diastolic heart failure 3. Severe mitral regurgitation 4. Hypertension 5. Dyslipidemia 6. Coronary artery disease, on medical management 7. Status post stenting to OM1 PLAN: Increase metoprolol to 50 mg twice a day. Creatinine has improved from yesterday, from a cardiac standpoint the patient may be discharged home. Follow-up in the office as previously recommended. Thank you for allowing us to participate in the care of this patient. Objective - Vital Signs Vital signs: Vital Signs Temp 97.6 F 02/01/23 11:56 Pulse 70 02/01/23 12:00 Resp 20 02/01/23 11:56 BP 152/81 02/01/23 11:56 Pulse Ox 97 02/01/23 11:56 FiO2 Intake & Output 01/31/23 02/01/23 02/01/23 18:59 06:59 18:59 Intake Total 740 480 Output Total 0 Balance 740 480 Weight 73.7 kg Intake: IV 200 Oral 540 480 Output: Gastric Drainage 0 Urine 0 Stool 0 Urine/Stool Mix 0 Emesis 0 Oral Regurgitation 0 Other 0 Other: Voiding Method Urinal Urinal # Voids 2 1 0 # Bowel Movements 0 - Labs CBC & Chem 7: 02/01/23 09:13 02/01/23 09:13 Labs: Abnormal Lab Results - Last 24 Hours (Table) 01/31/23 02/01/23 02/01/23 Range/Units 14:51 09:13 09:13 WBC 3.6 L (3.8-10.6) k/uL RBC 3.53 L (4.30-5.90) m/uL Hgb 10.8 L (13.0-17.5) gm/dL Hct 34.1 L (39.0-53.0) % Lymphocytes # 0.5 L (1.0-4.8) k/uL Sodium 136 L (137-145) mmol/L BUN 25 H 23 H (9-20) mg/dL Creatinine 1.33 H (0.66-1.25) mg/dL Glucose 114 H 195 H (74-99) mg/dL
--- NOTE | 2023-02-01 20:08 | DS ---
DISCHARGE SUMMARY FINAL DIAGNOSES: 1. Acute lav-CT-izpsoix-elevation myocardial infarction, status post cardiac cath and stenting. 2. Acute congestive heart failure with preserved ejection fraction. 3. Valvular heart disease. 4. Hypertension. 5. History of cerebrovascular accident. 6. Prediabetes. 7. Chronic obstructive pulmonary disease. 8. Multiple complex medical issues. DISCHARGE DISPOSITION: The patient will be discharged in stable condition and guarded prognosis. Discharge cleared by Cardiology. HISTORY OF PRESENT ILLNESS: This is a 77-year-old gentleman admitted with multiple complex medical issues as mentioned earlier. The patient underwent cardiac catheterization by Cardiology. The patient is started on dual antiplatelet treatment. Currently, the creatinine is stable at 1.12. The patient will be discharged in a stable condition with guarded prognosis. PHYSICAL EXAMINATION: VITAL SIGNS: Stable. CARDIOVASCULAR: S1, S2. ABDOMEN: Soft. NERVOUS SYSTEM: No focal deficits. DISCHARGE MEDICATIONS: Please refer to discharge medications. 1. Aspirin 81 mg daily. 2. Imdur 30 mg daily. 3. K-Dur 10 mg p.o. daily. 4. Lasix 40 mg p.o. daily. 5. Lipitor 80 mg at bedtime. To be followed by Dr. Brisa Brush, Cardiology and Dr. Frye. The patient's medications to be adjusted after this followup appointments on a short-term basis. MMODL / IJN: [id number] /
[2023-02-01] MEDS ORDERED: METOPROLOL TARTRATE 50 MG TAB PO SCH (21:00)
== END 2023-02-01 16:30 | disposition home or self-care (01) | DRG 321 ==
LOC: EC 11:20 → 3SCARD 14:19
PROVIDERS: ADMIT Internal Medicine; ATTEND Internal Medicine
PROC: 027034Z Dilation of Coronary Artery, One Artery with Drug-eluting Intraluminal Device, Percutaneous Approach (ICD-10-PCS; principal; 2023-01-31 08:00)
PROC: B2111ZZ Fluoroscopy of Multiple Coronary Arteries using Low Osmolar Contrast (ICD-10-PCS; 2023-01-31 08:00)
PROC: B240ZZ3 Ultrasonography of Single Coronary Artery, Intravascular (ICD-10-PCS; 2023-01-31 08:00)
DX: I21.4 Non-ST elevation (NSTEMI) myocardial infarction (principal); I50.31 Acute diastolic (congestive) heart failure; I69.354 Hemiplegia and hemiparesis following cerebral infarction affecting left non-dominant side; I27.20 Pulmonary hypertension, unspecified; I11.0 Hypertensive heart disease with heart failure; J44.9 Chronic obstructive pulmonary disease, unspecified; M06.9 Rheumatoid arthritis, unspecified; F31.9 Bipolar disorder, unspecified; I25.10 Atherosclerotic heart disease of native coronary artery without angina pectoris; I25.84 Coronary atherosclerosis due to calcified coronary lesion; I08.3 Combined rheumatic disorders of mitral, aortic and tricuspid valves; E78.5 Hyperlipidemia, unspecified; R73.03 Prediabetes; N42.9 Disorder of prostate, unspecified; R91.8 Other nonspecific abnormal finding of lung field; K58.9 Irritable bowel syndrome, unspecified; M19.90 Unspecified osteoarthritis, unspecified site; Z79.51 Long term (current) use of inhaled steroids; Z79.899 Other long term (current) drug therapy; Z96.651 Presence of right artificial knee joint; Z86.718 Personal history of other venous thrombosis and embolism; Z87.891 Personal history of nicotine dependence; Z88.1 Allergy status to other antibiotic agents
CPT/HCPCS: 36415; 71046; 76937; 80048; 80053; 80061; 83735; 83880; 84484; 85025; 85027; 85610; 85730; 92978; 93005; 93306; 93454; 94640; 94760; 96374; 96375; 99291

== ENCOUNTER → 2023-03-07 | Outpatient (CLI) | payer MEDICARE ==
[2023-03-07 16:17] LABS: Homocysteine 9.36 UMOL/L (4.00-14.00)
[2023-03-07 16:40] LABS: Acanthocytes 2+; Basophils # (M) 0 X 10*3/uL (0.00-0.10); Eosinophils # (M) 0 X 10*3/uL (0.04-0.35); HCT 35.6 % (39.6-50.0); HGB 11.5 g/dL (13.0-17.0); Lymphocytes # (M) 1.03 X 10*3/uL (0.90-5.00); MCH 30.4 pg (27.0-32.0); MCHC 32.3 g/dL (32.0-37.0); MCV 94.2 FL (80.0-97.0); Mean Platelet Volume 10.6 FL (9.5-12.2); NRBC Per 100 WBC 0.02 X 10*3/uL (0.00-0.01); Neutrophils % (M) 75 %; Platelet Count 189 X 10*3/uL (140-440); RBC 3.78 X 10*6/uL (4.40-5.60); WBC 5.73 X 10*3/uL (4.50-10.00)
[2023-03-07 16:46] LABS: ALT 28 U/L (10-49); AST 26 U/L (14-35); Albumin 3.9 g/dL (3.8-4.9); Albumin/Globulin Ratio 1.86 Ratio (1.60-3.17); Alkaline Phosphatase 96 U/L (41-126); BUN/Creat Ratio 15.27 Ratio (12.00-20.00); Blood Urea Nitrogen 16.8 mg/dL (9.0-27.0); Calcium 9.2 mg/dL (8.7-10.3); Carbon Dioxide 23.4 mmol/L (21.6-31.8); Chloride 102 mmol/L (96-109); Chol/HDL Ratio 1.73 Ratio; Globulin 2.1 g/dL (1.6-3.3); Glucose 130 mg/dL (70-110); Potassium 3.6 mmol/L (3.5-5.5); Prostate Specific Antigen 6.51 ng/mL (0.000-6.500); Sodium 138 mmol/L (135-145); T4, Free (Free Thyroxine) 1.49 ng/dL (0.80-1.80); Total Bilirubin 0.6 mg/dL (0.3-1.2); VLDL Calculation 12.08 mg/dL (5.00-40.00)
[2023-03-07 19:08] LABS: Insulin Level 9.8 mIU/mL (3.0-25.0)
[2023-03-08 06:37] LABS: EBV - VCA IgM 17.1 U/mL (<36.0)
[2023-03-10 05:31] LABS: Mycoplasma IgG Antibody (EIA) 3.03 INDEX (<=0.90); Mycoplasma IgM Antibody 0.19 INDEX (<=0.90)
[2023-03-10 11:25] LABS: Candida albicans IgE Class CLASS 0
== END | disposition home or self-care (01) ==
LOC: LABWHC1 09:11
PROVIDERS: ATTEND Physician Assistant
DX: I10 Essential (primary) hypertension (principal); D50.9 Iron deficiency anemia, unspecified; G31.84 Mild cognitive impairment of uncertain or unknown etiology; F52.21 Male erectile disorder; G44.209 Tension-type headache, unspecified, not intractable; E29.1 Testicular hypofunction; F51.04 Psychophysiologic insomnia; M19.90 Unspecified osteoarthritis, unspecified site; R53.83 Other fatigue; R73.01 Impaired fasting glucose; R00.2 Palpitations
CPT/HCPCS: 36415; 80053; 80061; 82306; 82533; 82728; 83090; 83525; 83735; 84153; 84439; 84443; 84481; 85025; 85379; 86003; 86141; 86644; 86645; 86665; 86738

== ENCOUNTER → 2023-03-12 | Outpatient (CLI) | payer MEDICARE ==
--- NOTE | 2023-03-12 10:37 | CT ---
EXAMINATION TYPE: CT chest wo con CT DLP: 448 mGycm, Automated exposure control for dose reduction was used. DATE OF EXAM: 03/12/2023 10:27 AM COMPARISON: PET CT 11/15/2022, CT chest 10/11/2022 CLINICAL INDICATION:Male, 77 years old with history of R04.2 HEMOPTYSIS; PHH, Hemoptysis and difficul ty breathing. TECHNIQUE: Multiple axial images were obtained through the chest without IV contrast. Lack of IV or o ral contrast limits evaluation of solid and hollow organ viscera. . Coronal and sagittal reformats re viewed. FINDINGS: LUNGS/ PLEURA: No pleural effusion, pneumothorax, or focal consolidation. Increased diffuse bilateral subpleural reticular opacities. Basilar predominant. Mild centrilobular emphysematous changes. No ho neycombing. No groundglass opacities. Stable scattered pulmonary nodules with example including a rig ht medial lower lobe 8 mm nodule (series 4, 36). Scattered calcified granulomas. AIRWAY: Patent and unremarkable.. HEART: Cardiomegaly. No pericardial effusion. Severe coronary artery calcifications.. Mitral annulus calcifications. MEDIASTINUM: No gross evidence of adenopathy. VASCULATURE: No aortic aneurysm. Atherosclerotic calcification of the aorta and its branches. MUSCULOSKELETAL: No acute osseous abnormalities. No aggressive osseous lesion. Partial visualization of lumbar fusion hardware. Mild multilevel degenerative disc disease. SOFT TISSUES/LYMPH NODES: Unremarkable. LOWER NECK: Macrocalcification within the right thyroid lobe. UPPER ABDOMEN: Left adrenal 3.0 cm benign lipid rich adrenal adenoma demonstrated. IMPRESSION: 1. Worsening pulmonary fibrotic changes with COPD from prior exam. 2. Stable scattered pulmonary nodules which were not FDG avid on prior PET/CT. 3. Cardiomegaly with severe coronary artery calcifications. 4. Stable left adrenal benign lipid rich adenoma.
== END | disposition home or self-care (01) ==
LOC: RADCTMAIN 10:02
PROVIDERS: ATTEND Internal Medicine
DX: I25.10 Atherosclerotic heart disease of native coronary artery without angina pectoris (principal); J44.9 Chronic obstructive pulmonary disease, unspecified; I51.7 Cardiomegaly
CPT/HCPCS: 71250

== ENCOUNTER → 2023-04-25 | Day surgery (SDC) | payer MEDICARE ==
[2023-04-24 12:19] VITALS: BMI 26.3
[~2023-04-25] MED LIST changes: -ACETAMINOPHEN TAB 500 MG TAB PO PRN; -DEXAMETHASONE SOD PHOSPHATE 4 MG/ML 1 ML VIAL IV ONE; -HEPARIN SODIUM,PORCINE/PF 5,000 UNIT/0.5 ML SYRINGE SQ PRN; -MIDAZOLAM 2 MG/2 ML VIAL IV PRN; -ONDANSETRON 4 MG/2 ML VIAL IVP ONE; +fentaNYL (PF) 50 MCG/ML 2 ML AMP ONE
[2023-04-25] MEDS: SODIUM CHLORIDE 0.9% 500 ML 500 ML IV ONE (06:43)
[2023-04-25 07:23] VITALS: TEMP 97.5
[2023-04-25] MEDS: BENZOCAINE SPRAY 1 CAN TOPICAL ONE (07:25)
[2023-04-25] MEDS: MIDAZOLAM 2 MG/2 ML VIAL IVP ONE (07:44)
[2023-04-25] MEDS: fentaNYL (PF) 50 MCG/ML 2 ML AMP IVP ONE (07:44)
--- NOTE | 2023-04-25 07:59 | P.PCN ---
Date of Procedure: 04/25/23 Operative Findings: TRANSESOPHAGEAL ECHOCARDIOGRAM CANE FLUME CHUTE OPERATOR: IVELISSE GORDON MD, RPVI INDICATION: Mitral regurgitation SEDATION: Conscious sedation COMPLICATION: None LEVEL OF SEDATION Sedation length of 20 minutes PROCEDURE DESCRIPTION: After obtaining an informed consent, the patient was brought to transesophageal echocardiogram room. Pulse oximetry and heart monitors were attached to the patient. The patient throat was sprayed using lidocaine. The patient was turned into left lateral position. After that a bite guard was placed. After an appropriate conscious sedation was initiated, the transesophageal echocardiogram was advanced through a bite guard into the mid esophagus. A 2-D echocardiogram images, color Doppler images, continuous wave images, pulse-wave images, of various cardiac structure were performed. After that the transesophageal echocardiogram probe was advanced into the stomach and fixed to obtain transgastric view was. The probe was brought into the mid esophagus. Inter-atrial septum was interrogated using 2D images, color Doppler images, and then contrast study. After that transesophageal echocardiogram was withdrawn out and upon withdrawing the descending thoracic aorta all the way up to the arch was evaluated. CONCLUSION: 1. Normal LV systolic function. 2. Mildly dilated right ventricle with normal function 3. Thickened mitral valve leaflets/myxomatous mitral valve with moderate mitral regurgitation documented by quantitative measurements. The PISA radius was 0.6 cm 4. Trileaflet aortic valve with no stenosis with mild insufficiency 5. Intact interatrial septum and intact left atrial appendage 6. No evidence of pericardial effusion
[2023-04-25 09:11] VITALS: BP 125/57; PULSE 58; RESP 16
== END ==
LOC: CATHCVL 06:24
PROVIDERS: ATTEND Internal Medicine Interventional Cardiology
DX: I34.0 Nonrheumatic mitral (valve) insufficiency (principal); I10 Essential (primary) hypertension; E78.5 Hyperlipidemia, unspecified; E11.9 Type 2 diabetes mellitus without complications; I73.9 Peripheral vascular disease, unspecified; Z79.82 Long term (current) use of aspirin; Z79.899 Other long term (current) drug therapy
CPT/HCPCS: 93312; 93320; 93325; J2250; J3010

== ENCOUNTER → 2023-05-08 | Outpatient (CLI) | payer MEDICARE | END | disposition home or self-care (01) | LOC: LABWHC1 15:09 | PROVIDERS: ATTEND Family Medicine | DX: G31.84 Mild cognitive impairment of uncertain or unknown etiology (principal); F52.21 Male erectile disorder; F51.04 Psychophysiologic insomnia; I10 Essential (primary) hypertension; G44.209 Tension-type headache, unspecified, not intractable; E88.810 Metabolic syndrome; M19.90 Unspecified osteoarthritis, unspecified site; D50.9 Iron deficiency anemia, unspecified; R53.83 Other fatigue; R00.2 Palpitations | CPT/HCPCS: 36415; 85379; 86141 ==

== ENCOUNTER → 2023-05-15 | Outpatient (CLI) | payer MEDICARE ==
[2023-05-15 12:05] LABS: African American GFR (CKD) 71 (>60 ml/min/1.73 sqM); Blood Urea Nitrogen 31 mg/dL (9-20); Non-African American GFR(CKD) 61 (>60 ml/min/1.73 sqM)
--- NOTE | 2023-05-15 20:32 | CT ---
EXAMINATION TYPE: CT chest w con DATE OF EXAM: 05/15/2023 COMPARISON: 03/12/2023 HISTORY: ABNORMAL LUNG FIELD CT DLP: 462 mGycm, Automated exposure control for dose reduction was used. CONTRAST: Performed injected with 90ML mL of Isovue 300. TECHNIQUE: Axial images were obtained at 5 mm thick sections. Reconstructed images are reviewed on [employer] computer in the coronal plane. FINDINGS: Portion of the thyroid visualized is normal. Pulmonary fibrosis present within the peripheral lung bases bilaterally. Emphysematous changes are pr esent. Previous 0.9 cm nodular density posterior to the right hilum is within measurement error of the prior day No enlarged mediastinal or hilar adenopathy is evident. The ascending aorta diameter at the level o f the main pulmonary artery is 3.5 cm. The main pulmonary artery diameter at the bifurcation is 2.8 cm. Coronary artery calcifications present. Limited CT sections are obtained through the upper abdomen. Left adrenal gland is thickened to 2.3 cm . Stable from comparison. However, this could be further evaluated with contrast CT with adrenal prot ocol. IMPRESSION: 1. Mild pulmonary fibrosis, stable from comparison. 2. Stable right lung nodule. 3. Stable Adrenal mass.
== END | disposition home or self-care (01) ==
LOC: RADCTMAIN 11:21
PROVIDERS: ATTEND Internal Medicine
DX: J84.10 Pulmonary fibrosis, unspecified (principal); R91.1 Solitary pulmonary nodule; E27.9 Disorder of adrenal gland, unspecified
CPT/HCPCS: 82565; 84520; 71260; 36415; Q9967

== ENCOUNTER 2024-01-03 13:24 | Emergency (ER) | payer MEDICARE ==
[2024-01-03 13:29] VITALS: TEMP 98.1
[2024-01-03 14:49] LABS: Basophils % (A) 0 %; Eosinophils % (A) 0 %; HCT 35.2 % (39.0-53.0); HGB 11.4 gm/dL (13.0-17.5); Lymphocytes # (A) 0.8 k/uL (1.0-4.8); Lymphocytes % (A) 7 %; MCH 30.3 pg (25.0-35.0); MCHC 32.5 g/dL (31.0-37.0); MCV 93.3 fL (80.0-100.0); Mean Platelet Volume 8.3; Monocytes # (A) 0.8 k/uL (0-1.0); Monocytes % (A) 7 %; Neutrophils # (A) 9.3 k/uL (1.3-7.7); Neutrophils % (A) 84 %; Platelet Count 189 k/uL (150-450); RBC 3.77 m/uL (4.30-5.90); RDW 13.9 % (11.5-15.5)
--- NOTE | 2024-01-03 14:58 | XR ---
EXAMINATION TYPE: XR chest 2V DATE OF EXAM: 01/03/2024 2:53 PM COMPARISON: Multiple prior chest radiograph, most recent dated 01/27/2023. CLINICAL INDICATION: Male, 78 years old with history of Chest Pain; [facility] TECHNIQUE: XR chest 2V Frontal and lateral views of the chest. FINDINGS: Stable currently. Patchy bilateral interstitial reticular nodular opacities compatible chronic interstitial lung diseas e. No sizable pleural effusion. No pneumothorax. No acute osseous body. Postsurgical changes in the bilateral humeral heads. IMPRESSION: 1. No definite acute abnormality in the chest. 2. Findings consistent with chronic interstitial lung disease, similar to previous study 01/27/2023. [facility], , 01/03/2024 2:56 PM
--- NOTE | 2024-01-03 15:03 | ED ---
General Adult HPI - General Source: patient, RN notes reviewed Mode of arrival: ambulatory Limitations: no limitations - History of Present Illness Onset/Timin -: days(s) Location: lower extremity Radiation: non-radiation Associated Symptoms: chest pain, cough Treatments Prior to Arrival: none <Shorty Higuera - Last Filed: 01/04/24 23:20> <Brit Payne - Last Filed: 01/05/24 00:42> - General Chief complaint: Extremity Problem,Nontraumatic Stated complaint: Corey feet swelling,weakness Time Seen by Provider: 01/03/24 13:41 - History of Present Illness Initial comments: 78-year-old male presents emergency department for some bilateral lower extremity swelling and mild exertional shortness of breath. Patient has CHF history and is concerned for similar symptoms. He denies chest pain. Does take Lasix 40 mg daily. He denies missed doses. No fevers, chills or cough. Denies history of DVT or PE. No abdominal pain or distention. No other alleviating, precipitating modifying factors (Brit Payne) - Related Data Home Medications Medication Instructions Recorded Confirmed lisinopriL 40 mg PO DAILY 08/19/17 04/25/23 Fluticasone/Umeclidin/Vilanter 1 puff INHALATION RT-DAILY 01/27/23 04/25/23 [Trelegy Ellipta 100-62.5-25] Metoprolol Tartrate [Lopressor] 25 mg PO BID 01/27/23 04/25/23 Clopidogrel Bisulfate [Clopidogrel] 75 mg PO DAILY 04/24/23 04/25/23 Ferrochef 1 dose PO DAILY 04/24/23 04/25/23 Potassium Chloride ER [K-Dur 10] 10 meq PO Q2D 04/24/23 04/25/23 Previous Rx's Medication Instructions Recorded Aspirin 81 mg PO DAILY #30 tab 02/01/23 Atorvastatin [Lipitor] 80 mg PO HS #30 tab 02/01/23 Furosemide [Lasix] 40 mg PO DAILY #30 tab 02/01/23 Isosorbide Mononitrate ER [Imdur] 30 mg PO DAILY #30 tab 02/01/23 Allergies Allergy/AdvReac Type Severity Reaction Status Date / Time vancomycin Allergy Rash/Hives Verified 01/03/24 13:26 Review of Systems ROS Other: All systems not noted in ROS Statement are negative. <DavidaShorty - Last Filed: 01/04/24 23:20> ROS Other: All systems not noted in ROS Statement are negative. <Brit Payne Grace - Last Filed: 01/05/24 00:42> ROS Statement: Those systems with pertinent positive or pertinent negative responses have been documented in the HPI. 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, "insulin resistant", DVT right leg 2012, anemia-iron supplement,pulmonary fibrosis,BPH History of Any Multi-Drug Resistant Organisms: None Reported Past Surgical History: Back Surgery, Cholecystectomy, Heart Catheterization, Joint Replacement, Tonsillectomy Additional Past Surgical History / Comment(s): laminectomy x 2, rt knee replacement x2, corey cataracts removed, COLONOSCOPY Past Anesthesia/Blood Transfusion Reactions: No Reported Reaction Additional Past Anesthesia/Blood Transfusion Reaction / Comment(s): no hx blood transfusion Past Psychological History: No Psychological Hx Reported Smoking Status: Former smoker Past Alcohol Use History: None Reported Past Drug Use History: None Reported - Past Family History Father Family Medical History: Cancer Additional Family Medical History / Comment(s): lung CA r/t environmental Mother Family Medical History: No Reported History <DavidaShorty - Last Filed: 01/04/24 23:20> General Exam Limitations: no limitations General appearance: alert, in no apparent distress Head exam: Present: atraumatic, normocephalic, normal inspection Eye exam: Present: normal appearance, PERRL, EOMI. Absent: scleral icterus, conjunctival injection, periorbital swelling ENT exam: Present: normal exam, mucous membranes moist Neck exam: Present: normal inspection. Absent: tenderness, meningismus, l ymphadenopathy Respiratory exam: Present: rales (Rales noted in bases of bilateral lower lobes). Absent: respiratory distress, wheezes, rhonchi, stridor, accessory muscle use, decreased breath sounds, prolonged expiratory Cardiovascular Exam: Present: regular rate, normal rhythm, systolic murmur (3/6), diastolic murmur (3/6). Absent: rubs, gallop, clicks GI/Abdominal exam: Present: soft, tenderness (Positive right lower quadrant and right upper quadrant tenderness. Positive McBurney's point, negative Jordan sign. Negative tympanic tenderness or rebound tenderness), normal bowel sounds. Absent: distended, guarding, rebound, rigid Extremities exam: Present: normal inspection, full ROM, normal capillary refill, pedal edema (Positive bilateral lower extremity pitting edema up to knees.), other (Bilateral posterior tibialis pulse +2. Negative stasis dermatitis or lower extremity color changes). Absent: tenderness, joint swelling, calf tenderness Back exam: Present: normal inspection Neurological exam: Present: alert, oriented X3, CN II-XII intact Psychiatric exam: Present: normal affect, normal mood Skin exam: Present: warm, dry, intact, normal color. Absent: rash <Shorty Higuera - Last Filed: 01/04/24 23:20> Course Vital Signs 01/03/24 01/03/24 01/03/24 13:26 14:39 16:50 Temperature 98.1 F Pulse Rate 78 68 72 Respiratory 20 20 18 Rate Blood Pressure 168/75 134/78 130/72 O2 Sat by Pulse 97 97 Oximetry Medical Decision Making - Lab Data Result diagrams: 01/03/24 14:38 01/03/24 14:38 <Shorty Higuera - Last Filed: 01/04/24 23:20> - Lab Data Result diagrams: 01/03/24 14:38 01/03/24 14:38 <Brit Payne - Last Filed: 01/05/24 00:42> - Medical Decision Making Was pt. sent in by a medical professional or institution (, PA, RIP TAILER, urgent care, hospital, or usp...) When possible be specific @ -[No] Did you speak to anyone other than the patient for history (EMS, parent, family, police, friend...)? What history was obtained from this source @ -[No] Did you review nursing and triage notes (agree or disagree)? Why? @ -[I reviewed and agree with nursing and triage notes] Were old charts reviewed (outside hosp., previous admission, EMS record, old EKG, old radiological studies, urgent care reports/EKG's, usp records)? Report findings @ -[No old charts were reviewed] Differential Diagnosis (chest pain, altered mental status, abdominal pain women, abdominal pain men, vaginal bleeding, weakness, fever, dyspnea, syncope, headache, dizziness, GI bleed, back pain, seizure, CVA, palpatations, mental health, musculoskeletal)? @ -Differential Chest Pain: Stable Angina, Unstable Angina, STEMI, NSTEMI Aortic Dissection, Pneumothorax, Musculoskeletal, Esophageal Spasm GERD, Cholecystitis, Pancreatitis, Zoster, this is not meant to be an all-inclusive list. EKG interpreted by me (3pts min.). @ -Sinus rhythm with occasional PAC. No ST changes or T wave inversion. Ventricular rate 65 bpm, GISELLE 147 ms, QRS duration 96 ms, QTc 408 ms. X-rays interpreted by me (1pt min.). @ -Chest x-ray shows no definite acute abnormality and findings consistent with chronic interstitial lung disease. CT interpreted by me (1pt min.). @ -Abdomen/pelvic CT shows no acute abnormalities to explain reported symptoms. Left adrenal gland nodule noted and compared to study from November 2022. U/S interpreted by me (1pt. min.). @ -[None done] What testing was considered but not performed or refused? (CT, X-rays, U/S, labs)? Why? @ -[None] What meds were considered but not given or refused? Why? @ -[None] Did you discuss the management of the patient with other professionals (professionals i.e. , PA, RIP TAILER, lab, RT, psych nurse, psychotherapist social worker, piecer, teacher, light armored reconnaissance officer, case coordinator)? Give summary @ -[No] Was smoking cessation discussed for >3mins.? @ -[No] Was critical care preformed (if so, how long)? @ -[No] Were there social determinants of health that impacted care today? How? (Homelessness, low income, unemployed, alcoholism, drug addiction, transportation, low edu. Level, literacy, decrease access to med. care, group home, rehab)? @ -[No] Was there de-escalation of care discussed even if they declined (Discuss DNR or withdrawal of care, Hospice)? DNR status @ -[No] What co-morbidities impacted this encounter? (DM, HTN, Smoking, COPD, CAD, Cancer, CVA, ARF, Chemo, Hep., AIDS, mental health diagnosis, sleep apnea, morbid obesity)? @ -CHF Was patient admitted / discharged? Hospital course, mention meds given and route, prescriptions, significant lab abnormalities, going to OR and other pe rtinent info. @ -Lab work shows slight leukocytosis of 11.0 with left shift. Age-adjusted D- dimer is within normal limits. Patient states he is chronically hyponatremic. BNP is elevated at just over 2000. Troponin is negative. Lab work is otherwise unremarkable. Chest x-ray shows no definite acute abnormality and findings consistent with chronic interstitial lung disease. Abdomen/pelvic CT shows no acute abnormalities to explain reported symptoms. Left adrenal gland nodule noted and compared to study from November 2022. Patient provided IV Lasix for fluid overload. Patient advised follow-up with primary care to consider increase in p.o. Lasix dose. Advised compression stocking and leg elevation for lower extremity edema. Undiagnosed new problem with uncertain prognosis? @ -[No] Drug Therapy requiring intensive monitoring for toxicity (Heparin, Nitro, Insul in, Cardizem)? @ -[No] Were any procedures done? @ -[No] Diagnosis/symptom? @ -Congestive heart failure Acute, or Chronic, or Acute on Chronic? @ -Acute on chronic Uncomplicated (without systemic symptoms) or Complicated (systemic symptoms)? @ -Complicated Side effects of treatment? @ -[No] Exacerbation, Progression, or Severe Exacerbation? @ -Exacerbation Poses a threat to life or bodily function? How? (Chest pain, [place], [place], pneumonia, PE, COPD, DKA, ARF, appy, cholecystitis, CVA, Diverticulitis, Homicidal, Suicidal, threat to staff... and all critical care pts) @ -Heart failure (Shorty Higuera) Patient instructed to call his primary care doctor for dose adjustment of his Lasix. Possibly recommended that he take 40 mg twice daily for the next 5 days and return should his shortness of breath not improve (Brit Payne) - Lab Data Lab Results 01/03/24 01/03/24 01/03/24 Range/Units 14:38 14:38 14:38 WBC 11.0 H (3.8-10.6) k/uL RBC 3.77 L (4.30-5.90) m/uL Hgb 11.4 L (13.0-17.5) gm/dL Hct 35.2 L (39.0-53.0) % MCV 93.3 (80.0-100.0) fL MCH 30.3 (25.0-35.0) pg MCHC 32.5 (31.0-37.0) g/dL RDW 13.9 (11.5-15.5) % Plt Count 189 (150-450) k/uL MPV 8.3 Neutrophils % 84 % Lymphocytes % 7 % Monocytes % 7 % Eosinophils % 0 % Basophils % 0 % Neutrophils # 9.3 H (1.3-7.7) k/uL Lymphocytes # 0.8 L (1.0-4.8) k/uL Monocytes # 0.8 (0-1.0) k/uL Eosinophils # 0.0 (0-0.7) k/uL Basophils # 0.0 (0-0.2) k/uL PT 10.4 (10.0-12.5) sec INR 0.9 (<1.2) APTT 25.1 (22.0-30.0) sec D-Dimer 0.61 H (<0.60) mg/L FEU Sodium 129 L (137-145) mmol/L Potassium 4.7 (3.5-5.1) mmol/L Chloride 101 (98-107) mmol/L Carbon Dioxide 25 (22-30) mmol/L Anion Gap 3 mmol/L BUN 23 H (9-20) mg/dL Creatinine 1.12 (0.66-1.25) mg/dL Est GFR (CKD-EPI)AfAm 72 (>60 ml/min/1.73 sqM) Est GFR (CKD-EPI)NonAf 62 (>60 ml/min/1.73 sqM) Glucose 123 H (74-99) mg/dL Calcium 8.9 (8.4-10.2) mg/dL Magnesium 1.8 (1.6-2.3) mg/dL Total Bilirubin 0.7 (0.2-1.3) mg/dL AST 22 (17-59) U/L ALT 18 (4-49) U/L Alkaline Phosphatase 63 (38-126) U/L Troponin I (0.000-0.034) ng/mL NT-Pro-B Natriuret Pep 2020 pg/mL Total Protein 6.0 L (6.3-8.2) g/dL Albumin 3.8 (3.5-5.0) g/dL Urine Color Urine Appearance (Clear) Urine pH (5.0-8.0) Ur Specific [place] (1.001-1.035) Urine Protein (Negative) Urine Glucose (UA) (Negative) Urine Ketones (Negative) Urine Blood (Negative) Urine Nitrite (Negative) Urine Bilirubin (Negative) Urine Urobilinogen (<2.0) mg/dL Ur Leukocyte Esterase (Negative) 01/03/24 01/03/24 Range/Units 14:38 15:08 WBC (3.8-10.6) k/uL RBC (4.30-5.90) m/uL Hgb (13.0-17.5) gm/dL Hct (39.0-53.0) % MCV (80.0-100.0) fL MCH (25.0-35.0) pg MCHC (31.0-37.0) g/dL RDW (11.5-15.5) % Plt Count (150-450) k/uL MPV Neutrophils % % Lymphocytes % % Monocytes % % Eosinophils % % Basophils % % Neutrophils # (1.3-7.7) k/uL Lymphocytes # (1.0-4.8) k/uL Monocytes # (0-1.0) k/uL Eosinophils # (0-0.7) k/uL Basophils # (0-0.2) k/uL PT (10.0-12.5) sec INR (<1.2) APTT (22.0-30.0) sec D-Dimer (<0.60) mg/L FEU Sodium (137-145) mmol/L Potassium (3.5-5.1) mmol/L Chloride (98-107) mmol/L Carbon Dioxide (22-30) mmol/L Anion Gap mmol/L BUN (9-20) mg/dL Creatinine (0.66-1.25) mg/dL Est GFR (CKD-EPI)AfAm (>60 ml/min/1.73 sqM) Est GFR (CKD-EPI)NonAf (>60 ml/min/1.73 sqM) Glucose (74-99) mg/dL Calcium (8.4-10.2) mg/dL Magnesium (1.6-2.3) mg/dL Total Bilirubin (0.2-1.3) mg/dL AST (17-59) U/L ALT (4-49) U/L Alkaline Phosphatase (38-126) U/L Troponin I <0.012 (0.000-0.034) ng/mL NT-Pro-B Natriuret Pep pg/mL Total Protein (6.3-8.2) g/dL Albumin (3.5-5.0) g/dL Urine Color Colorless Urine Appearance Clear (Clear) Urine pH 5.5 (5.0-8.0) Ur Specific [place] 1.007 (1.001-1.035) Urine Protein Negative (Negative) Urine Glucose (UA) Negative (Negative) Urine Ketones Negative (Negative) Urine Blood Negative (Negative) Urine Nitrite Negative (Negative) Urine Bilirubin Negative (Negative) Urine Urobilinogen <2.0 (<2.0) mg/dL Ur Leukocyte Esterase Negative (Negative) Disposition Is patient prescribed a controlled substance at d/c from ED?: No Time of Disposition: 16:34 <Shorty Higuera - Last Filed: 01/04/24 23:20> <Brit Payne - Last Filed: 01/05/24 00:42> Clinical Impression: Congestive heart failure, Bilateral lower extremity edema Disposition: HOME SELF-CARE Condition: Good Instructions (If sedation given, give patient instructions): Heart Failure (DC), Leg Edema (ED) Referrals: Brisa Brush MD [Primary Care Provider] - 1-2 days
[2024-01-03 15:10] LABS: ALT 18 U/L (4-49); AST 22 U/L (17-59); African American GFR (CKD) 72 (>60 ml/min/1.73 sqM); Albumin 3.8 g/dL (3.5-5.0); Alkaline Phosphatase 63 U/L (38-126); Anion Gap 3 mmol/L; Blood Urea Nitrogen 23 mg/dL (9-20); Calcium 8.9 mg/dL (8.4-10.2); Carbon Dioxide 25 mmol/L (22-30); Chloride 101 mmol/L (98-107); Glucose 123 mg/dL (74-99); Magnesium 1.8 mg/dL (1.6-2.3); Non-African American GFR(CKD) 62 (>60 ml/min/1.73 sqM); Potassium 4.7 mmol/L (3.5-5.1); Sodium 129 mmol/L (137-145); Total Bilirubin 0.7 mg/dL (0.2-1.3)
[2024-01-03 15:18] LABS: NT-Pro-B-Type Natriuretic Pept 2020 pg/mL
[2024-01-03 15:19] LABS: Appearance,Urine Clear (Clear); Bilirubin,Urine Negative (Negative); Blood,Urine Negative (Negative); Color,Urine Colorless; Glucose,Urine (UA) Negative (Negative); Ketones,Urine Negative (Negative); Leukocyte Esterase,Urine Negative (Negative); Nitrite,Urine Negative (Negative); PH, Urine 5.5 (5.0-8.0); Protein,Urine Negative (Negative); Specific Gravity,Urine 1.007 (1.001-1.035); Urobilinogen,Urine <2.0 mg/dL (<2.0)
[2024-01-03] MEDS: FUROSEMIDE 10 MG/ML 10 ML VIAL IV STA (15:33)
[2024-01-03 15:39] LABS: INR 0.9 (<1.2); Partial Thromboplastin Time 25.1 sec (22.0-30.0); Prothrombin Time 10.4 sec (10.0-12.5)
--- NOTE | 2024-01-03 16:24 | CT ---
EXAMINATION TYPE: CT abdomen pelvis w con DATE OF EXAM: 01/03/2024 4:11 PM COMPARISON: PET/CT study dated 11/15/2022. CLINICAL INDICATION: Male, 78 years old with history of Right lower quadrant tenderness; abdominal pa in TECHNIQUE: Axial CT abdomen pelvis w con;Sagittal and coronal reformats were created on a separate w orkstation. Contrast used:80 mL of Isovue 300 with IV Contrast, (none if empty) Oral contrast used: without Oral Contrast (none if empty) CT DLP: 1355.9 mGycm, Automated exposure control for dose reduction was used. FINDINGS: Study limited due to patient positioning/streak artifact from overlying extremity. Cardiomegaly and partially visualized coronary artery calcifications. LOWER CHEST: No acute pathology. Subpleural reticular changes noted. ABDOMEN LIVER: Unremarkable GALLBLADDER AND BILE DUCTS: Unremarkable. PANCREAS: Unremarkable. SPLEEN: Unremarkable. ADRENAL GLANDS: Indeterminate left adrenal gland nodule measuring 2.7 x 2.2 cm. No right-sided renal bed nodule. KIDNEYS AND URETERS: No evidence of hydronephrosis or renal calculus. The ureters are unremarkable. PELVIS BLADDER: No evidence for wall thickening or mass given limitations of exam. REPRODUCTIVE: Prostatomegaly. ABDOMEN & PELVIS STOMACH AND BOWEL: Small hiatal hernia. No evidence of bowel obstruction. Appendix unremarkable. PERITONEUM/RETROPERITONEUM: No evidence of pneumoperitoneum or free fluid. VASCULATURE: No evidence of aortic aneurysm. MUSCULOSKELETAL: No acute osseous abnormalities posterior lumbosacral spinal fusion hardware visualiz ed spanning L3-S1. Grade 1 anterolisthesis of L5 and S1. LYMPH NODES: No gross evidence for lymphadenopathy. SOFT TISSUE/ABDOMINAL WALL: Unremarkable IMPRESSION: 1. No acute abnormality abdomen/pelvis or CT findings to explain reported symptoms. 2. Indeterminate left adrenal gland nodule measuring 2.7 x 2.2 cm, previously FDG avid on prior PET/ CT study dated 11/15/2022. Recommend outpatient evaluation with dedicated CT or MRI utilizing adrenal protocol. [facility], , 01/03/2024 4:21 PM
[2024-01-03] MEDS ORDERED: SODIUM CHLORIDE 0.9% 500 ML 500 ML IV STA (16:26)
[2024-01-03 16:52] VITALS: BP 130/72; PULSE 72; RESP 18
== END 2024-01-03 17:25 | disposition home or self-care (01) ==
LOC: EC 13:24
DX: R60.0 Localized edema (principal); I11.0 Hypertensive heart disease with heart failure; I50.9 Heart failure, unspecified; Z87.891 Personal history of nicotine dependence; Z88.8 Allergy status to other drugs, medicaments and biological substances
CPT/HCPCS: 36415; 93005; 85379; 83880; 80053; 83735; 84484; 85025; 85610; 85730; 81003; 71046; 74177; 99284; 96374; J1940; Q9967

== ENCOUNTER → 2024-02-25 | Outpatient (CLI) | payer MEDICARE ==
[2024-02-25 16:52] LABS: Prostate Specific Antigen 10.8 ng/mL (0.000-6.500); T4, Free (Free Thyroxine) 1.64 ng/dL (0.80-1.80)
[2024-02-25 16:59] LABS: Insulin Level 5.1 mIU/mL (3.0-25.0)
[2024-02-25 17:11] LABS: Homocysteine 9.99 UMOL/L (4.00-14.00)
[2024-02-25 17:17] LABS: C Reactive Protein, High Sens 89.6 mg/L (0.000-3.000)
[2024-02-25 17:28] LABS: Basophils # (A) 0 X 10*3/uL (0.00-0.10); Basophils % (A) 0 %; Eosinophils # (A) 0 X 10*3/uL (0.04-0.35); Eosinophils % (A) 0 %; HCT 29.4 % (39.6-50.0); HGB 9.3 g/dL (13.0-17.0); Lymphocytes # (A) 0.56 X 10*3/uL (0.90-5.00); Lymphocytes % (A) 9.6 %; MCH 29.2 pg (27.0-32.0); MCHC 31.6 g/dL (32.0-37.0); MCV 92.5 FL (80.0-97.0); Mean Platelet Volume 9.4 FL (9.5-12.2); Monocytes # (A) 0.77 X 10*3/uL (0.20-1.00); Monocytes % (A) 13.2 %; NRBC Per 100 WBC 0 X 10*3/uL (0.00-0.01); Neutrophils # (A) 4.49 X 10*3/uL (1.80-7.70); Neutrophils % (A) 76.7 %; Platelet Count 317 X 10*3/uL (140-440); RBC 3.18 X 10*6/uL (4.40-5.60); RDW 14.5 % (11.5-14.5); WBC 5.85 X 10*3/uL (4.50-10.00)
[2024-02-25 17:47] LABS: % Iron Saturation 10.42 (15.00-50.00); ALT 21 U/L (10-49); AST 23 U/L (14-35); Albumin 3.5 g/dL (3.8-4.9); Alkaline Phosphatase 130 U/L (41-126); BUN/Creat Ratio 19.36 Ratio (12.00-20.00); Blood Urea Nitrogen 27.1 mg/dL (9.0-27.0); Calcium 8.9 mg/dL (8.7-10.3); Carbon Dioxide 21.8 mmol/L (21.6-31.8); Chloride 100 mmol/L (96-109); Chol/HDL Ratio 3.19 Ratio; Globulin 2.7 g/dL (1.6-3.3); Glucose 122 mg/dL (70-110); Iron 30 UG/DL (65-175); LDL Cholesterol,Calculated 68.7 mg/dL (0.0-131.0); Potassium 4.5 mmol/L (3.5-5.5); Sodium 134 mmol/L (135-145); Total Bilirubin 0.6 mg/dL (0.3-1.2); Total Iron Binding Capacity 288 UG/DL (228-460); Total Protein 6.2 g/dL (6.2-8.2); VLDL Calculation 17.76 mg/dL (5.00-40.00)
== END | disposition home or self-care (01) ==
LOC: LABWHC1 08:10
PROVIDERS: ATTEND Physician Assistant
DX: D50.9 Iron deficiency anemia, unspecified (principal); I10 Essential (primary) hypertension; F52.21 Male erectile disorder; G44.209 Tension-type headache, unspecified, not intractable; G31.84 Mild cognitive impairment of uncertain or unknown etiology; E29.1 Testicular hypofunction; M19.90 Unspecified osteoarthritis, unspecified site; F51.04 Psychophysiologic insomnia; R00.2 Palpitations; R53.83 Other fatigue; R73.01 Impaired fasting glucose
CPT/HCPCS: 36415; 80053; 80061; 82306; 82533; 82627; 82642; 82728; 83036; 83090; 83525; 83540; 83550; 84153; 84403; 84439; 84443; 84481; 84482; 85025; 85379; 86141

== ENCOUNTER → 2024-05-20 | Outpatient (CLI) | payer MEDICARE ==
[2024-05-20 15:14] LABS: Basophils # (A) 0 X 10*3/uL (0.00-0.10); Basophils % (A) 0 %; Eosinophils # (A) 0 X 10*3/uL (0.04-0.35); Eosinophils % (A) 0 %; HCT 35.6 % (39.6-50.0); Lymphocytes # (A) 0.94 X 10*3/uL (0.90-5.00); Lymphocytes % (A) 14.1 %; MCH 28.5 pg (27.0-32.0); MCHC 30.9 g/dL (32.0-37.0); MCV 92.2 FL (80.0-97.0); Monocytes # (A) 0.66 X 10*3/uL (0.20-1.00); Monocytes % (A) 9.9 %; NRBC Per 100 WBC 0 X 10*3/uL (0.00-0.01); Neutrophils # (A) 5.07 X 10*3/uL (1.80-7.70); Neutrophils % (A) 75.7 %; Platelet Count 207 X 10*3/uL (140-440); RBC 3.86 X 10*6/uL (4.40-5.60); RDW 14.9 % (11.5-14.5); WBC 6.69 X 10*3/uL (4.50-10.00)
[2024-05-20 15:54] LABS: % Iron Saturation 11.29 (15.00-50.00); ALT 18 U/L (10-49); AST 23 U/L (14-35); Albumin 4.1 g/dL (3.8-4.9); Albumin/Globulin Ratio 1.86 Ratio (1.60-3.17); Alkaline Phosphatase 76 U/L (41-126); BUN/Creat Ratio 20.12 Ratio (12.00-20.00); Blood Urea Nitrogen 32.2 mg/dL (9.0-27.0); Calcium 9.1 mg/dL (8.7-10.3); Carbon Dioxide 20.4 mmol/L (21.6-31.8); Chloride 103 mmol/L (96-109); Chol/HDL Ratio 3.23 Ratio; Globulin 2.2 g/dL (1.6-3.3); Glucose 123 mg/dL (70-110); Iron 43 UG/DL (65-175); LDL Cholesterol,Calculated 83.9 mg/dL (0.0-131.0); Prostate Specific Antigen 8.46 ng/mL (0.000-6.500); Sodium 133 mmol/L (135-145); Total Bilirubin 0.5 mg/dL (0.3-1.2); Total Iron Binding Capacity 381 UG/DL (228-460); Total Protein 6.3 g/dL (6.2-8.2); VLDL Calculation 16.94 mg/dL (5.00-40.00)
== END | disposition home or self-care (01) ==
LOC: LABWHC1 10:10
PROVIDERS: ATTEND Family Medicine
DX: I12.9 Hypertensive chronic kidney disease with stage 1 through stage 4 chronic kidney disease, or unspecified chronic kidney disease (principal); E27.8 Other specified disorders of adrenal gland; E29.1 Testicular hypofunction; D50.9 Iron deficiency anemia, unspecified; N18.31 Chronic kidney disease, stage 3a; G31.84 Mild cognitive impairment of uncertain or unknown etiology; F52.21 Male erectile disorder; G44.209 Tension-type headache, unspecified, not intractable; F51.04 Psychophysiologic insomnia; M19.90 Unspecified osteoarthritis, unspecified site; R53.83 Other fatigue; R73.01 Impaired fasting glucose; R00.2 Palpitations; Z86.0100 Personal history of colon polyps, unspecified
CPT/HCPCS: 36415; 80053; 80061; 82306; 82533; 82607; 82728; 82746; 83036; 83540; 83550; 83735; 83835; 83970; 84153; 84443; 85025; 86140

== ENCOUNTER → 2024-08-19 | Outpatient (CLI) | payer MEDICARE ==
[2024-08-19 15:27] LABS: Basophils # (A) 0 X 10*3/uL (0.00-0.10); Basophils % (A) 0 %; Eosinophils # (A) 0 X 10*3/uL (0.04-0.35); Eosinophils % (A) 0 %; HCT 33.8 % (39.6-50.0); HGB 10.7 g/dL (13.0-17.0); Immature Grans, Automated 0.50 %; Lymphocytes # (A) 0.98 X 10*3/uL (0.90-5.00); Lymphocytes % (A) 22.4 %; MCH 29.3 pg (27.0-32.0); MCHC 31.7 g/dL (32.0-37.0); MCV 92.6 FL (80.0-97.0); Monocytes # (A) 0.54 X 10*3/uL (0.20-1.00); Monocytes % (A) 12.3 %; NRBC Per 100 WBC 0 X 10*3/uL (0.00-0.01); Neutrophils # (A) 2.84 X 10*3/uL (1.80-7.70); Neutrophils % (A) 64.8 %; Platelet Count 192 X 10*3/uL (140-440); RBC 3.65 X 10*6/uL (4.40-5.60); RDW 14.6 % (11.5-14.5); WBC 4.38 X 10*3/uL (4.50-10.00)
[2024-08-19 15:58] LABS: ALT 17 U/L (10-49); AST 21 U/L (14-35); Albumin 4.1 g/dL (3.8-4.9); Albumin/Globulin Ratio 1.86 Ratio (1.60-3.17); Alkaline Phosphatase 69 U/L (41-126); Anion Gap 10.70 mmol/L (4.00-12.00); BUN/Creat Ratio 35.44 Ratio (12.00-20.00); Blood Urea Nitrogen 56.7 mg/dL (9.0-27.0); Calcium 8.9 mg/dL (8.7-10.3); Carbon Dioxide 17.3 mmol/L (21.6-31.8); Chloride 111 mmol/L (96-109); Cholesterol 148.00 mg/dL (0.00-200.00); Ferritin 167.0 ng/mL (22.0-322.0); Globulin 2.2 g/dL (1.6-3.3); Glucose 110 mg/dL (70-110); HDL Cholesterol 43.70 mg/dL (40.00-60.00); Iron 76 UG/DL (65-175); LDL Cholesterol,Calculated 84.8 mg/dL (0.0-131.0); Potassium 5.2 mmol/L (3.5-5.5); Prostate Specific Antigen 5.56 ng/mL (0.000-6.500); Sodium 139 mmol/L (135-145); T4, Free (Free Thyroxine) 1.30 ng/dL (0.80-1.80); Total Iron Binding Capacity 335 UG/DL (228-460); Total Protein 6.3 g/dL (6.2-8.2); Triglycerides 97.30 mg/dL (0.00-149.00); VLDL Calculation 19.46 mg/dL (5.00-40.00)
== END | disposition home or self-care (01) ==
LOC: LABWHC1 08:32
PROVIDERS: ATTEND Physician Assistant
DX: I10 Essential (primary) hypertension (principal); E29.1 Testicular hypofunction; D50.9 Iron deficiency anemia, unspecified; G31.84 Mild cognitive impairment of uncertain or unknown etiology; F52.21 Male erectile disorder; G44.209 Tension-type headache, unspecified, not intractable; F51.04 Psychophysiologic insomnia; M19.90 Unspecified osteoarthritis, unspecified site; R53.83 Other fatigue; R73.01 Impaired fasting glucose; R00.2 Palpitations
CPT/HCPCS: 36415; 80053; 80061; 82306; 82533; 82642; 82670; 82728; 83036; 83090; 83525; 83540; 83550; 84153; 84439; 84443; 84481; 84482; 85025; 85379; 86140